=== PATIENT | female | born 1935 | race Caucasian/White ===

== ENCOUNTER 2017-06-02 21:42 | Inpatient (IN) | payer MEDICAID, MEDICARE ==
--- NOTE | 2017-06-02 22:05 | ED Physician Chart ---
ED Chief Complaint/HPI - Patient Information Date Seen:: 06/02/17 Time Seen:: 21:55 Chief Complaint:: agitation History of Present Illness:: onset x 2 days of agitation and aggressive behavior; no report of trauma, SIs, H /As, S/T, neck pain, C/P, SOB, Abd. Pain, A/N/V/D/C, fever, chills, or urinary s /s Allergies:: Allergies Allergy/AdvReac Type Severity Reaction Status Date / Time No Known Allergies Allergy Verified 06/02/17 21:56 Historian:: Patient, EMS Review:: Nurse's Note Reviewed, Old Chart Reviewed, EMS run form Reviewed ED Review of Systems - Review of Systems General/Constitutional: No fever, No chills, No weight loss, No weakness, No diaphoresis, No edema, No loss of appetite Skin: No skin lesions, No rash, No bruising Head: No headache, No light-headedness Eyes: No loss of vision, No pain, No diplopia ENT: No earache, No nasal drainage, No sore throat, No tinnitus Neck: No neck pain, No swelling, No thyromegaly, No stiffness, No mass noted Cardio Vascular: No chest pain, No palpitations, No PND, No orthopnea, No edema Pulmonary: No SOB, No cough, No sputum, No wheezing GI: No nausea, No vomiting, No diarrhea, No pain, No melena, No hematochezia, No constipation, No hematemesis G/U: No dysuria, No frequency, No hematuria, No nacturia [employer]: No vaginal discharge, No abnormal vaginal bleed, No contraction Musculoskeletal: No bone or joint pain, No back pain, No muscle pain Endocrine: No polyuria, No polydipsia Psychiatric: Prior psych history, No depression, Anxiety, No suicidal ideation, No homicidal ideation, No auditory hallucination, No visual hallucination Hematopoietic: No bruising, No lymphadenopathy Allergic/Immuno: No urticaria, No angioedema Neurological: No syncope, No focal symptoms, No weakness, No paresthesia, No headache, No seizure, No dizziness, No confusion, No vertigo ED Past Medical History - Past Medical History Obtainable: Yes Past Medical History: HTN, Dyslipidemia, Dementia Family History: HTN Social History: Non Smoker, No Alcohol, No Drug Use, Single, Care Facility Surgical History: None Psychiatricy History: Bipolar, Dementia Medication: Reviewed Family Medical History - Family Member Mother History Unknown: Yes ED Physical Exam - Physical Examination General/Constitutional: Awake, Well-developed, well-nourished, Alert, No distress, GCS 15, Non-toxic appearing, Ambulatory Head: Atraumatic Eyes: Lids, conjuctiva normal, PERRL, EOMI Skin: Nl inspection, No rash, No skin lesions, No ecchymosis, Well hydrated, No lymphadenopathy ENMT: External ears, nose nl, TM canals nl, Nasal exam nl, Lips, teeth, gums nl , Oropharynx nl, Tonsils nl Neck: Nontender, Full ROM w/o pain, No JVD, No nuchal rigidity, No bruit, No mass, No stridor Respiratory: Nl effort/Exclusion, Clear to Auscultation, No Wheeze/Rhonchi/Rales Cardio Vascular: RRR, No murmur, gallop, rubs, NL S1 S2, Carotid/Femoral/Distal pulses equal bilaterally GI: No tenderness/rebounding/guarding, No organomegaly, No hernia, Normal BS's, Nondistended, No mass/bruits, No McBurney tenderness : No CVA tenderness Extremities: No tenderness or effusion, Full ROM, normal strength in all extremities, No edema, Normal digits & nails Neuro/Psych: Alert/oriented, DTR's symmetric, Normal sensory exam, Normal motor strength, Judgement/insight normal, Mood normal, Normal gait, No focal deficits Other Neuro/Psych comments:: + Psychomotor Agitation; Mood/Affect: Labile; no SIs Misc: Normal back, No paraspinal tenderness ED Labs/Radiology/EKG Results - Lab Results Comments:: unremarkable - EKG Interpretations EKG Time:: 22:05 Rate & Rhythm: 77; NSR Comments:: LVH; non-specific st-t changes ED Septic Shock - . Is Septic Shock (SBP<90, OR Lactate>4 mmol\L) present?: No ED Reassessment (Disposition) - Reassessment Reassessment Condition:: Improved - Diagnosis Diagnosis:: Medical Clearance; Agitation; Bipolar Disorder; Psychosis - Aftercare/Follow up Instructions Aftercare/Follow-Up Instructions:: Counseled pt regarding lab results/diagnosis & need follow up, Counseled pt & family regarding lab results/diagnosis & need follow up - Patient Disposition Discharge/Transfer:: Acute Care w/in this hosp Admitted to:: [facility] Condition at Disposition:: Stable, Improved
[2017-06-02 23:11] LABS: % BASOPHILS 0.2 % (0.0-2.0); % LYMPHOCYTES 22.8 % (20.0-50.0); EOSINOPHILE ABSOLUTE 0.1 Th/cmm (0.1-0.4); HEMATOCRIT 43.7 % (41.0-60); HEMOGLOBIN 14.5 gm/dL (12-16); LYMPHOCYTE ABSOLUTE 1.3 Th/cmm (1.5-3.0); MEAN CELL VOLUME 92.3 fl (81-100); MEAN CORPUSCULAR HEMOGLOBIN 30.5 pg (27.0-31.0); MEAN CORPUSCULAR HGB CONC 33.1 pg (28.0-36.0); MONOCYTE ABSOLUTE 0.5 Th/cmm (0.3-1.0); PLATELET COUNT 208 Th/cmm (150-400); RED BLOOD COUNT 4.74 Mil/cmm (3.80-5.20); RED CELL DISTRIBUTION WIDTH 13.5 % (11.5-20.0); WHITE BLOOD COUNT 5.9 Th/cmm (4.8-10.8)
[2017-06-02 23:39] LABS: ACETAMINOPHEN < 10.0 ug/mL (10.0-30.0); ALB/GLOB RATIO 1.3 (1.0-1.8); ALBUMIN 3.7 gm/dL (3.7-5.3); ALKALINE PHOSPHATASE 76 U/L (34-104); ANION GAP 11.8 (7.0-16.0); BILIRUBIN,TOTAL 0.5 mg/dL (0.3-1.0); BUN - UREA NITROGEN 27 mg/dL (7-25); CALCIUM SERUM 9.5 mg/dL (8.6-10.3); CARBON DIOXIDE 26.1 mEq/L (21.0-31.0); CHLORIDE 111 mEq/L (98-107); CHOLESTEROL 196 mg/dL (<200); CREATININE - SERUM 0.6 mg/dL (0.6-1.2); GLUCOSE 79 mg/dL (70-105); HDL -HIGH DENSITY LIPOPROTEIN 83 mg/dL (23-92); POTASSIUM SERUM 3.9 mEq/L (3.5-5.1); SALICYLATES (ASPIRIN) < 25.0 mg/L (30.0-100.0); SGOT 17 U/L (13-39); SGPT/ALT 15 U/L (7-52); SODIUM SERUM 145 mEq/L (136-145); TOTAL PROTEIN,SERUM 6.6 gm/dL (6.0-8.3); TRIGLYCERIDES 53 mg/dL (<150)
[2017-06-03 01:49] VITALS: BP 138/65
[2017-06-03] MEDS ORDERED: Magnesium Hydroxide (MOM) 30 mL UDC PO PRN (13:35)
[2017-06-03] MEDS ORDERED: Non-Formulary Item 1 EA (Albuterol Sulfate [Ventolin Hfa] 2 PUFF) IH SCH (13:45)
--- NOTE | 2017-06-03 16:38 | Internal Medicine Prog Note ---
Internal Medicine Subjective - Subjective Service Date: 06/03/17 ([id number] hn ) Internal Medicine Objective - Results Result Diagrams: 06/02/17 22:50 06/02/17 22:50 Recent Labs: Laboratory Last Values WBC 5.9 Th/cmm (4.8-10.8) 06/02/17 22:50 RBC 4.74 Mil/cmm (3.80-5.20) 06/02/17 22:50 Hgb 14.5 gm/dL (12-16) 06/02/17 22:50 Hct 43.7 % (41.0-60) 06/02/17 22:50 MCV 92.3 fl (81-100) 06/02/17 22:50 MCH 30.5 pg (27.0-31.0) 06/02/17 22:50 MCHC Differential 33.1 pg (28.0-36.0) 06/02/17 22:50 RDW 13.5 % (11.5-20.0) 06/02/17 22:50 Plt Count 208 Th/cmm (150-400) 06/02/17 22:50 MPV 8.0 fl 06/02/17 22:50 Neutrophils % 67.0 % (40.0-80.0) 06/02/17 22:50 Lymphocytes % 22.8 % (20.0-50.0) 06/02/17 22:50 Monocytes % 8.0 % (2.0-10.0) 06/02/17 22:50 Eosinophils % 2.0 % (0.0-5.0) 06/02/17 22:50 Basophils % 0.2 % (0.0-2.0) 06/02/17 22:50 Sodium 145 mEq/L (136-145) 06/02/17 22:50 Potassium 3.9 mEq/L (3.5-5.1) 06/02/17 22:50 Chloride 111 mEq/L (98-107) H 06/02/17 22:50 Carbon Dioxide 26.1 mEq/L (21.0-31.0) 06/02/17 22:50 Anion Gap 11.8 (7.0-16.0) 06/02/17 22:50 BUN 27 mg/dL (7-25) H 06/02/17 22:50 Creatinine 0.6 mg/dL (0.6-1.2) 06/02/17 22:50 Est GFR ( Amer) TNP 06/02/17 22:50 Est GFR (Non-Af Amer) TNP 06/02/17 22:50 BUN/Creatinine Ratio 45.0 06/02/17 22:50 Glucose 79 mg/dL (70-105) 06/02/17 22:50 Calcium 9.5 mg/dL (8.6-10.3) 06/02/17 22:50 Total Bilirubin 0.5 mg/dL (0.3-1.0) 06/02/17 22:50 AST 17 U/L (13-39) 06/02/17 22:50 ALT 15 U/L (7-52) 06/02/17 22:50 Alkaline Phosphatase 76 U/L (34-104) 06/02/17 22:50 Total Protein 6.6 gm/dL (6.0-8.3) 06/02/17 22:50 Albumin 3.7 gm/dL (3.7-5.3) 06/02/17 22:50 Globulin 2.9 gm/dL 06/02/17 22:50 Albumin/Globulin Ratio 1.3 (1.0-1.8) 06/02/17 22:50 Triglycerides 53 mg/dL (<150) 06/02/17 22:50 Cholesterol 196 mg/dL (<200) 06/02/17 22:50 LDL Cholesterol Direct 93 mg/dL (75-193) 06/02/17 22:50 HDL Cholesterol 83 mg/dL (23-92) 06/02/17 22:50 TSH 2.92 uIU/ml (0.34-5.60) 06/02/17 22:50 Salicylates < 25.0 mg/L (30.0-100.0) L 06/02/17 22:50 Acetaminophen < 10.0 ug/mL (10.0-30.0) L 06/02/17 22:50 Ethyl Alcohol < 10 mg/dL (0-10) 06/02/17 22:50 - Physical Exam Vitals and I&O: Vital Signs Temp 96.8 F 06/03/17 16:14 Pulse 68 06/03/17 16:14 Resp 18 06/03/17 16:14 BP 128/64 06/03/17 16:14 Pulse Ox 96 06/03/17 16:14 Intake & Output 06/02/17 06/03/17 06/03/17 18:59 06:59 18:59 Other: # Voids 2 Stool Characteristics Soft Active Medications: Current Medications Acetaminophen (Tylenol) 650 mg PO Q6H PRN PRN Reason: Pain (Mild) Stop: 08/02/17 13:34 Amlodipine Besylate (Norvasc) 5 mg PO DAILY [facility] Stop: 08/03/17 08:59 Aspirin (Aspirin Chewable) 81 mg PO DAILY [facility] Stop: 08/03/17 08:59 Bisacodyl (Dulcolax 10 Mg Supp) 10 mg RC DAILY PRN PRN Reason: Constipation Stop: 08/02/17 13:34 Famotidine (Pepcid) 20 mg PO QAM [facility] Stop: 08/03/17 08:59 Lorazepam (Ativan) 0.5 mg PO Q4HR PRN; Protocol PRN Reason: Anxiety Stop: 07/03/17 00:57 Magnesium Hydroxide (Milk Of Magnesia) 30 ml PO HS PRN PRN Reason: Constipation Stop: 08/02/17 13:34
--- NOTE | 2017-06-03 19:09 | History & Physical ---
ADMIT DATE: 06/03/2017 CHIEF COMPLAINT: Agitation. HISTORY OF PRESENT ILLNESS: This is an 82-year-old male who is a custodial resident who is admitted now to the Geropsych Unit due to a 2-day history of agitation and aggressive behavior towards nursing staff. PAST MEDICAL HISTORY: Hypertension, dyslipidemia, dementia. FAMILY HISTORY: Noncontributory. SOCIAL HISTORY: The patient is a custodial resident requiring 24-hour nursing care. SURGICAL HISTORY: Unknown. MEDICATIONS: Please see medication list. REVIEW OF SYSTEMS: GENERAL: Denies any fevers and chills. CARDIOVASCULAR: Denies chest pain. RESPIRATORY: Denies shortness of breath. GASTROINTESTINAL: Denies nausea, vomiting or abdominal pain. GENITOURINARY: Denies increased frequency or dysuria. NEUROLOGIC: No headaches, seizures or syncope. All other systems are reviewed and are negative. PHYSICAL EXAMINATION: GENERAL: The patient is well developed, well nourished, in no acute distress. VITAL SIGNS: Temperature 96.8, heart rate 68, blood pressure 128/64, respirations 18. HEENT: Head normocephalic, atraumatic. NECK: Supple. No mass. LUNGS: Clear bilaterally. HEART: . ABDOMEN: Soft and nontender. LABORATORY DATA: WBC 5.9, H and H 14.5 and 42.7, platelets of 208. Sodium 145, potassium 3.9, chloride 111, BUN 27, creatinine 0.6. ASSESSMENT: Agitation, hypertension, dyslipidemia, dementia. PLAN: We will monitor the patient's blood pressure. We will change patient's blood pressure medications. We will adjust the patient's medication accordingly. We will continue to follow this patient. JOB# [id number]
[2017-06-03 19:59] LABS: A1C % 5.9 % (4.0-6.0)
--- NOTE | 2017-06-04 03:49 | Psychosocial Evaluation ---
DATE OF SERVICE: 06/03/2017 IDENTIFYING DATA: The patient is an 82-year-old woman, resident of [facility]. Information obtained by directly interviewing the patient as well as reviewing the admission papers. JUSTIFICATION OF HOSPITALIZATION: The patient is admitted here on a voluntary basis in view of her disruptive behavior and being paranoid. HISTORY OF PRESENT ILLNESS: Chart is reviewed. The patient is interviewed. During the interview, the patient is noted to be grossly psychotic and has been trying to grab the staff member and the patient is not making any sense at this time. The patient is laughing to self and giggling at times. The patient's personal hygiene is noted to be extremely poor. The patient is noted to be disheveled. Sleep and appetite prior to the hospitalization are reported to be poor. PAST PSYCHIATRIC HISTORY: Details are not known. MEDICAL HISTORY: Physical examination is requested and done by Dr. Thomas. SUBSTANCE ABUSE HISTORY: The patient has no history of any substance abuse problems. SOCIAL HISTORY: The patient is a resident of the alf facility. MENTAL STATUS EXAMINATION: The patient is an 82-year-old woman looking her stated age, superficially cooperative. Eye contact is poor. Mood is noted to be irritable. Affect is constricted. The patient is talking to self and is not making much sense. The patient is noted to be giggling. Coping skills are noted to be very poor. Insight and judgment also noted to be very much impaired. No side effects to the medications are noted. The patient has been having difficult time to answer the questions and tries to grab my hand. DIAGNOSTIC IMPRESSION: AXIS I: Psychotic disorder, not otherwise specified. AXIS II: None. AXIS III: As per Dr. Thomas. ESTIMATED LENGTH OF STAY: 5-7 days. DISCHARGE CRITERIA: When she is no longer a threat to self or others and be able to cope up with the stress. JOB# [id number]
[2017-06-04] MEDS: Aspirin 81mg Chewable Tab PO SCH (08:59)
--- NOTE | 2017-06-04 13:56 | Internal Medicine Prog Note ---
Internal Medicine Subjective - Subjective Service Date: 06/04/17 Patient seen and examined:: with staff Patient is:: awake, verbal Per staff patient has:: tolerating meds Internal Medicine Objective - Results Result Diagrams: 06/02/17 22:50 06/02/17 22:50 Recent Labs: Laboratory Last Values WBC 5.9 Th/cmm (4.8-10.8) 06/02/17 22:50 RBC 4.74 Mil/cmm (3.80-5.20) 06/02/17 22:50 Hgb 14.5 gm/dL (12-16) 06/02/17 22:50 Hct 43.7 % (41.0-60) 06/02/17 22:50 MCV 92.3 fl (81-100) 06/02/17 22:50 MCH 30.5 pg (27.0-31.0) 06/02/17 22:50 MCHC Differential 33.1 pg (28.0-36.0) 06/02/17 22:50 RDW 13.5 % (11.5-20.0) 06/02/17 22:50 Plt Count 208 Th/cmm (150-400) 06/02/17 22:50 MPV 8.0 fl 06/02/17 22:50 Neutrophils % 67.0 % (40.0-80.0) 06/02/17 22:50 Lymphocytes % 22.8 % (20.0-50.0) 06/02/17 22:50 Monocytes % 8.0 % (2.0-10.0) 06/02/17 22:50 Eosinophils % 2.0 % (0.0-5.0) 06/02/17 22:50 Basophils % 0.2 % (0.0-2.0) 06/02/17 22:50 Sodium 145 mEq/L (136-145) 06/02/17 22:50 Potassium 3.9 mEq/L (3.5-5.1) 06/02/17 22:50 Chloride 111 mEq/L (98-107) H 06/02/17 22:50 Carbon Dioxide 26.1 mEq/L (21.0-31.0) 06/02/17 22:50 Anion Gap 11.8 (7.0-16.0) 06/02/17 22:50 BUN 27 mg/dL (7-25) H 06/02/17 22:50 Creatinine 0.6 mg/dL (0.6-1.2) 06/02/17 22:50 Est GFR ( Amer) TNP 06/02/17 22:50 Est GFR (Non-Af Amer) TNP 06/02/17 22:50 BUN/Creatinine Ratio 45.0 06/02/17 22:50 Glucose 79 mg/dL (70-105) 06/02/17 22:50 Hemoglobin A1c % 5.9 % (4.0-6.0) 06/02/17 22:50 Calcium 9.5 mg/dL (8.6-10.3) 06/02/17 22:50 Total Bilirubin 0.5 mg/dL (0.3-1.0) 06/02/17 22:50 AST 17 U/L (13-39) 06/02/17 22:50 ALT 15 U/L (7-52) 06/02/17 22:50 Alkaline Phosphatase 76 U/L (34-104) 06/02/17 22:50 Total Protein 6.6 gm/dL (6.0-8.3) 06/02/17 22:50 Albumin 3.7 gm/dL (3.7-5.3) 06/02/17 22:50 Globulin 2.9 gm/dL 06/02/17 22:50 Albumin/Globulin Ratio 1.3 (1.0-1.8) 06/02/17 22:50 Triglycerides 53 mg/dL (<150) 06/02/17 22:50 Cholesterol 196 mg/dL (<200) 06/02/17 22:50 LDL Cholesterol Direct 93 mg/dL (75-193) 06/02/17 22:50 HDL Cholesterol 83 mg/dL (23-92) 06/02/17 22:50 TSH 2.92 uIU/ml (0.34-5.60) 06/02/17 22:50 Salicylates < 25.0 mg/L (30.0-100.0) L 06/02/17 22:50 Acetaminophen < 10.0 ug/mL (10.0-30.0) L 06/02/17 22:50 Ethyl Alcohol < 10 mg/dL (0-10) 06/02/17 22:50 RPR NONREACTIVE (NONREACTIVE) 06/02/17 22:50 - Physical Exam Vitals and I&O: Vital Signs Temp 98.4 F 06/04/17 06:52 Pulse 65 06/04/17 08:57 Resp 18 06/04/17 06:52 BP 116/69 06/04/17 08:57 Pulse Ox 95 06/04/17 06:52 Intake & Output 06/03/17 06/04/17 06/04/17 18:59 06:59 18:59 Intake Total 600 240 Balance 600 240 Intake: Oral 600 240 Other: # Voids 2 2 Stool Characteristics Soft Active Medications: Current Medications Acetaminophen (Tylenol) 650 mg PO Q6H PRN PRN Reason: Pain (Mild) Stop: 08/02/17 13:34 Amlodipine Besylate (Norvasc) 5 mg PO DAILY [facility] Stop: 08/03/17 08:59 Last Admin: 06/04/17 08:57 Dose: 5 mg Aspirin (Aspirin Chewable) 81 mg PO DAILY [facility] Stop: 08/03/17 08:59 Last Admin: 06/04/17 08:59 Dose: 81 mg Bisacodyl (Dulcolax 10 Mg Supp) 10 mg RC DAILY PRN PRN Reason: Constipation Stop: 08/02/17 13:34 Famotidine (Pepcid) 20 mg PO QAM [facility] Stop: 08/03/17 08:59 Last Admin: 06/04/17 08:57 Dose: 20 mg Lorazepam (Ativan) 0.5 mg PO Q4HR PRN; Protocol PRN Reason: Anxiety Stop: 07/03/17 00:57 Magnesium Hydroxide (Milk Of Magnesia) 30 ml PO HS PRN PRN Reason: Constipation Stop: 08/02/17 13:34 Quetiapine Fumarate (Seroquel) 12.5 mg PO HS [facility] PRN Reason: Protocol Stop: 08/02/17 20:59 General: alert HEENT: NC/AT, PERRLA Neck: Supple Lungs: CTAB Cardiovascular: RRR, Normal S1, Normal S2 Abdomen: soft, non-tender, non-distended, positive bowel sound Neurological: alert Internal Medicine Assmt/Plan - Assessment Assessment: agitation htn dyslipidemia dementia - Plan Plan: fall precautions monitor BP continue current plan of care
--- NOTE | 2017-06-05 02:38 | Progress Notes ---
DATE: 06/04/2017 PSYCHIATRIC PROGRESS NOTE SUBJECTIVE: Staff was spoken to. The patient is interviewed. Mood is noted to be irritable. Affect is constricted. She continues to be isolative and withdrawn. Paranoid delusions are noted. Insight and judgment are noted to be impaired. Coping skills are noted to be very poor. The patient is not making much sense and the patient has been lying down with her toy next to her. ASSESSMENT: The patient is still psychotic and impulsive. PLAN: To continue the patient with the supportive therapy. Encouraged the patient to verbalize the concerns rather than to act out. JOB# [id number]
[2017-06-05] MEDS: Aspirin 81mg Chewable Tab PO SCH (09:04)
--- NOTE | 2017-06-05 14:50 | Internal Medicine Prog Note ---
Internal Medicine Subjective - Subjective Patient seen and examined:: with staff, chart reviewed Patient is:: awake, verbal Per staff patient has:: no adverse event, no episodes of fall, tolerating meds Internal Medicine Objective - Results Result Diagrams: 06/02/17 22:50 06/02/17 22:50 Recent Labs: Laboratory Last Values WBC 5.9 Th/cmm (4.8-10.8) 06/02/17 22:50 RBC 4.74 Mil/cmm (3.80-5.20) 06/02/17 22:50 Hgb 14.5 gm/dL (12-16) 06/02/17 22:50 Hct 43.7 % (41.0-60) 06/02/17 22:50 MCV 92.3 fl (81-100) 06/02/17 22:50 MCH 30.5 pg (27.0-31.0) 06/02/17 22:50 MCHC Differential 33.1 pg (28.0-36.0) 06/02/17 22:50 RDW 13.5 % (11.5-20.0) 06/02/17 22:50 Plt Count 208 Th/cmm (150-400) 06/02/17 22:50 MPV 8.0 fl 06/02/17 22:50 Neutrophils % 67.0 % (40.0-80.0) 06/02/17 22:50 Lymphocytes % 22.8 % (20.0-50.0) 06/02/17 22:50 Monocytes % 8.0 % (2.0-10.0) 06/02/17 22:50 Eosinophils % 2.0 % (0.0-5.0) 06/02/17 22:50 Basophils % 0.2 % (0.0-2.0) 06/02/17 22:50 Sodium 145 mEq/L (136-145) 06/02/17 22:50 Potassium 3.9 mEq/L (3.5-5.1) 06/02/17 22:50 Chloride 111 mEq/L (98-107) H 06/02/17 22:50 Carbon Dioxide 26.1 mEq/L (21.0-31.0) 06/02/17 22:50 Anion Gap 11.8 (7.0-16.0) 06/02/17 22:50 BUN 27 mg/dL (7-25) H 06/02/17 22:50 Creatinine 0.6 mg/dL (0.6-1.2) 06/02/17 22:50 Est GFR ( Amer) TNP 06/02/17 22:50 Est GFR (Non-Af Amer) TNP 06/02/17 22:50 BUN/Creatinine Ratio 45.0 06/02/17 22:50 Glucose 79 mg/dL (70-105) 06/02/17 22:50 Hemoglobin A1c % 5.9 % (4.0-6.0) 06/02/17 22:50 Calcium 9.5 mg/dL (8.6-10.3) 06/02/17 22:50 Total Bilirubin 0.5 mg/dL (0.3-1.0) 06/02/17 22:50 AST 17 U/L (13-39) 06/02/17 22:50 ALT 15 U/L (7-52) 06/02/17 22:50 Alkaline Phosphatase 76 U/L (34-104) 06/02/17 22:50 Total Protein 6.6 gm/dL (6.0-8.3) 06/02/17 22:50 Albumin 3.7 gm/dL (3.7-5.3) 06/02/17 22:50 Globulin 2.9 gm/dL 06/02/17 22:50 Albumin/Globulin Ratio 1.3 (1.0-1.8) 06/02/17 22:50 Triglycerides 53 mg/dL (<150) 06/02/17 22:50 Cholesterol 196 mg/dL (<200) 06/02/17 22:50 LDL Cholesterol Direct 93 mg/dL (75-193) 06/02/17 22:50 HDL Cholesterol 83 mg/dL (23-92) 06/02/17 22:50 TSH 2.92 uIU/ml (0.34-5.60) 06/02/17 22:50 Salicylates < 25.0 mg/L (30.0-100.0) L 06/02/17 22:50 Acetaminophen < 10.0 ug/mL (10.0-30.0) L 06/02/17 22:50 Ethyl Alcohol < 10 mg/dL (0-10) 06/02/17 22:50 RPR NONREACTIVE (NONREACTIVE) 06/02/17 22:50 - Physical Exam Vitals and I&O: Vital Signs Temp 97.8 F 06/05/17 06:32 Pulse 61 06/05/17 09:04 Resp 20 06/05/17 08:00 BP 135/57 06/05/17 09:04 Pulse Ox 96 06/05/17 06:32 Intake & Output 06/04/17 06/05/17 06/05/17 18:59 06:59 18:59 Intake Total 500 Balance 500 Intake: Oral 500 Other: # Voids 2 Active Medications: Current Medications Acetaminophen (Tylenol) 650 mg PO Q6H PRN PRN Reason: Pain (Mild) Stop: 08/02/17 13:34 Amlodipine Besylate (Norvasc) 5 mg PO DAILY [facility] Stop: 08/03/17 08:59 Last Admin: 06/05/17 09:04 Dose: 5 mg Aspirin (Aspirin Chewable) 81 mg PO DAILY [facility] Stop: 08/03/17 08:59 Last Admin: 06/05/17 09:04 Dose: 81 mg Bisacodyl (Dulcolax 10 Mg Supp) 10 mg RC DAILY PRN PRN Reason: Constipation Stop: 08/02/17 13:34 Famotidine (Pepcid) 20 mg PO QAM [facility] Stop: 08/03/17 08:59 Last Admin: 06/05/17 09:04 Dose: 20 mg Lorazepam (Ativan) 0.5 mg PO Q4HR PRN; Protocol PRN Reason: Anxiety Stop: 07/03/17 00:57 Magnesium Hydroxide (Milk Of Magnesia) 30 ml PO HS PRN PRN Reason: Constipation Stop: 08/02/17 13:34 Quetiapine Fumarate (Seroquel) 12.5 mg PO HS [facility] PRN Reason: Protocol Stop: 08/02/17 20:59 General: alert HEENT: NC/AT, PERRLA Neck: Supple Lungs: CTAB Cardiovascular: RRR, Normal S1, Normal S2 Abdomen: soft, non-tender, non-distended, positive bowel sound Neurological: alert Internal Medicine Assmt/Plan - Assessment Assessment: - Assessment Assessment: agitation htn dyslipidemia dementia - Plan Plan: fall precautions monitor BP continue current plan of care - Plan Plan: see orders
--- NOTE | 2017-06-05 15:49 | Progress Notes ---
DATE: 06/05/2017 SUBJECTIVE: Staff was spoken to. The patient is interviewed. Mood is irritable. Affect is constricted. Coping skills are noted to very poor. The patient has paranoid delusions. No side effects to the medications are noted. The patient is not making any sense. ASSESSMENT: The patient is still grossly psychotic. PLAN: To continue the patient with the supportive therapy, encouraged the patient to verbalize the concerns rather than to act out. [facility]# [id number]
[2017-06-06] MEDS: Aspirin 81mg Chewable Tab PO SCH (08:35)
--- NOTE | 2017-06-06 16:40 | Progress Notes ---
DATE: 06/06/2017 SUBJECTIVE: Staff was spoken to. The patient is interviewed. Mood is noted to be anxious. Coping skills are noted to be poor. The patient continues to be isolative and withdrawn. Paranoid delusions are noted, but the patient denies any command hallucinations. The patient has been having difficult time to verbalize the concerns. ASSESSMENT: The patient is still agitated. PLAN: To continue the patient with a low dose of the antipsychotic medication. JOB# [id number]
--- NOTE | 2017-06-06 17:51 | Consultation ---
DATE OF CONSULTATION: 06/04/2017 REQUESTING PHYSICIAN: Oleg Parker M.D. TYPE OF CONSULTATION: Psychology. HISTORY OF PRESENT ILLNESS: The patient is an 82-year-old female who is a resident of [facility]. The following is by review of medical record and by the patient's self report. The patient has been interviewed. The patient is not making much sense during the interview. The staff reports that the patient has been trying to grab staff members at her facility. The patient has been inappropriately laughing at times. She presents as disheveled and with poor hygiene. The patient is being admitted due to disruptive behavior according to the staff at the patient's facility. PAST MEDICAL HISTORY: Please see history and physical by Dr. Thomas. PAST PSYCHIATRIC HISTORY: Unavailable at the time of the clinical interview. SUBSTANCE ABUSE HISTORY: The patient did not answer questions about substance abuse history. MEDICATIONS: Please see admission medication reconciliation. ALLERGIES: No known drug allergies. PSYCHOSOCIAL HISTORY: The patient is a resident of [facility]. The patient did not answer questions about occupational history, educational history, or confucianism affiliation. The patient did not answer questions about history of physical or sexual abuse or legal status. The patient said no when asked if there are family members who are part of her support system. MENTAL STATUS EXAMINATION: The patient appears to be her stated age. The patient's attitude is superficially cooperative. Eye contact is poor. Speech is slow and delayed and rambling at times. Mood is irritable. Affect is constricted. Thought process shows to be confused. The patient is not making much sense. Concentration is poor. The patient was unable to sustain focus on attention. Impulse control is poor. The patient denied any suicidal ideation, plan, or intention. The patient denied any auditory or visual hallucinations or delusions. However, there may be some paranoid ideation present. The patient did not participate in the memory evaluation. Immediate and short term memory appeared to be impaired. Sensorium is alert and oriented to place and person. The patient did not participate in the interpretation of proverbs. Insight is impaired. Judgment is compromised. DIAGNOSTIC IMPRESSION: AXIS I: Psychotic disorder, not otherwise specified. AXIS II: Deferred. AXIS III: Please see history and physical by Dr. Thomas. TREATMENT PLAN: The patient has been seen by Dr. Parker for psychiatric evaluation and for the management of the patient's psychotropic medications. We will provide reality orientation, reality differentiation, and reality integration. We will provide coping strategies for phase of life issues. We will continue to provide supportive therapy and encourage the patient to stay compliant with all aspects of her care and treatment during the course of her hospital stay. We will provide motivational enhancement for the patient to verbalize concerns versus acting out. Thank you, Dr. Parker for this consult and the opportunity to participate in this patient's care. JOB# [id number] CAL[facility]
--- NOTE | 2017-06-06 21:30 | Internal Medicine Prog Note ---
Internal Medicine Subjective - Subjective Patient seen and examined:: with staff, chart reviewed Patient is:: awake, verbal Per staff patient has:: no adverse event, no episodes of fall, tolerating meds Internal Medicine Objective - Results Result Diagrams: 06/02/17 22:50 06/02/17 22:50 Recent Labs: Laboratory Last Values WBC 5.9 Th/cmm (4.8-10.8) 06/02/17 22:50 RBC 4.74 Mil/cmm (3.80-5.20) 06/02/17 22:50 Hgb 14.5 gm/dL (12-16) 06/02/17 22:50 Hct 43.7 % (41.0-60) 06/02/17 22:50 MCV 92.3 fl (81-100) 06/02/17 22:50 MCH 30.5 pg (27.0-31.0) 06/02/17 22:50 MCHC Differential 33.1 pg (28.0-36.0) 06/02/17 22:50 RDW 13.5 % (11.5-20.0) 06/02/17 22:50 Plt Count 208 Th/cmm (150-400) 06/02/17 22:50 MPV 8.0 fl 06/02/17 22:50 Neutrophils % 67.0 % (40.0-80.0) 06/02/17 22:50 Lymphocytes % 22.8 % (20.0-50.0) 06/02/17 22:50 Monocytes % 8.0 % (2.0-10.0) 06/02/17 22:50 Eosinophils % 2.0 % (0.0-5.0) 06/02/17 22:50 Basophils % 0.2 % (0.0-2.0) 06/02/17 22:50 Sodium 145 mEq/L (136-145) 06/02/17 22:50 Potassium 3.9 mEq/L (3.5-5.1) 06/02/17 22:50 Chloride 111 mEq/L (98-107) H 06/02/17 22:50 Carbon Dioxide 26.1 mEq/L (21.0-31.0) 06/02/17 22:50 Anion Gap 11.8 (7.0-16.0) 06/02/17 22:50 BUN 27 mg/dL (7-25) H 06/02/17 22:50 Creatinine 0.6 mg/dL (0.6-1.2) 06/02/17 22:50 Est GFR ( Amer) TNP 06/02/17 22:50 Est GFR (Non-Af Amer) TNP 06/02/17 22:50 BUN/Creatinine Ratio 45.0 06/02/17 22:50 Glucose 79 mg/dL (70-105) 06/02/17 22:50 Hemoglobin A1c % 5.9 % (4.0-6.0) 06/02/17 22:50 Calcium 9.5 mg/dL (8.6-10.3) 06/02/17 22:50 Total Bilirubin 0.5 mg/dL (0.3-1.0) 06/02/17 22:50 AST 17 U/L (13-39) 06/02/17 22:50 ALT 15 U/L (7-52) 06/02/17 22:50 Alkaline Phosphatase 76 U/L (34-104) 06/02/17 22:50 Total Protein 6.6 gm/dL (6.0-8.3) 06/02/17 22:50 Albumin 3.7 gm/dL (3.7-5.3) 06/02/17 22:50 Globulin 2.9 gm/dL 06/02/17 22:50 Albumin/Globulin Ratio 1.3 (1.0-1.8) 06/02/17 22:50 Triglycerides 53 mg/dL (<150) 06/02/17 22:50 Cholesterol 196 mg/dL (<200) 06/02/17 22:50 LDL Cholesterol Direct 93 mg/dL (75-193) 06/02/17 22:50 HDL Cholesterol 83 mg/dL (23-92) 06/02/17 22:50 TSH 2.92 uIU/ml (0.34-5.60) 06/02/17 22:50 Salicylates < 25.0 mg/L (30.0-100.0) L 06/02/17 22:50 Acetaminophen < 10.0 ug/mL (10.0-30.0) L 06/02/17 22:50 Ethyl Alcohol < 10 mg/dL (0-10) 06/02/17 22:50 RPR NONREACTIVE (NONREACTIVE) 06/02/17 22:50 - Physical Exam Vitals and I&O: Vital Signs Temp 97.8 F 06/06/17 21:17 Pulse 72 06/06/17 21:17 Resp 20 06/06/17 21:17 BP 121/76 06/06/17 21:17 Pulse Ox 97 06/06/17 21:17 Intake & Output 06/06/17 06/06/17 06/07/17 06:59 18:59 06:59 Intake Total 240 800 240 Balance 240 800 240 Intake: Oral 240 800 240 Other: # Voids 1 4 1 # Bowel Movements 1 Active Medications: Current Medications Acetaminophen (Tylenol) 650 mg PO Q6H PRN PRN Reason: Pain (Mild) Stop: 08/02/17 13:34 Amlodipine Besylate (Norvasc) 5 mg PO DAILY [facility] Stop: 08/03/17 08:59 Last Admin: 06/06/17 08:35 Dose: 5 mg Aspirin (Aspirin Chewable) 81 mg PO DAILY [facility] Stop: 08/03/17 08:59 Last Admin: 06/06/17 08:35 Dose: 81 mg Bisacodyl (Dulcolax 10 Mg Supp) 10 mg RC DAILY PRN PRN Reason: Constipation Stop: 08/02/17 13:34 Famotidine (Pepcid) 20 mg PO QAM SIMON Stop: 08/03/17 08:59 Last Admin: 06/06/17 08:35 Dose: 20 mg Lorazepam (Ativan) 0.5 mg PO Q4HR PRN; Protocol PRN Reason: Anxiety Stop: 07/03/17 00:57 Magnesium Hydroxide (Milk Of Magnesia) 30 ml PO HS PRN PRN Reason: Constipation Stop: 08/02/17 13:34 Quetiapine Fumarate (Seroquel) 12.5 mg PO HS SIMON PRN Reason: Protocol Stop: 08/02/17 20:59 Last Admin: 06/06/17 21:14 Dose: 12.5 mg General: alert HEENT: NC/AT, PERRLA Neck: Supple Lungs: CTAB Cardiovascular: RRR, Normal S1, Normal S2 Abdomen: soft, non-tender, non-distended, positive bowel sound Neurological: alert Internal Medicine Assmt/Plan - Assessment Assessment: - Assessment Assessment: agitation htn dyslipidemia dementia - Plan Plan: fall precautions monitor BP continue current plan of care - Plan Plan: see orders
[2017-06-07] MEDS: Aspirin 81mg Chewable Tab PO SCH (09:38)
--- NOTE | 2017-06-07 13:21 | Internal Medicine Prog Note ---
Internal Medicine Subjective - Subjective Service Date: 06/07/17 Patient is:: awake, verbal Per staff patient has:: no adverse event, no episodes of fall, tolerating meds Internal Medicine Objective - Results Result Diagrams: 06/02/17 22:50 06/02/17 22:50 Recent Labs: Laboratory Last Values WBC 5.9 Th/cmm (4.8-10.8) 06/02/17 22:50 RBC 4.74 Mil/cmm (3.80-5.20) 06/02/17 22:50 Hgb 14.5 gm/dL (12-16) 06/02/17 22:50 Hct 43.7 % (41.0-60) 06/02/17 22:50 MCV 92.3 fl (81-100) 06/02/17 22:50 MCH 30.5 pg (27.0-31.0) 06/02/17 22:50 MCHC Differential 33.1 pg (28.0-36.0) 06/02/17 22:50 RDW 13.5 % (11.5-20.0) 06/02/17 22:50 Plt Count 208 Th/cmm (150-400) 06/02/17 22:50 MPV 8.0 fl 06/02/17 22:50 Neutrophils % 67.0 % (40.0-80.0) 06/02/17 22:50 Lymphocytes % 22.8 % (20.0-50.0) 06/02/17 22:50 Monocytes % 8.0 % (2.0-10.0) 06/02/17 22:50 Eosinophils % 2.0 % (0.0-5.0) 06/02/17 22:50 Basophils % 0.2 % (0.0-2.0) 06/02/17 22:50 Sodium 145 mEq/L (136-145) 06/02/17 22:50 Potassium 3.9 mEq/L (3.5-5.1) 06/02/17 22:50 Chloride 111 mEq/L (98-107) H 06/02/17 22:50 Carbon Dioxide 26.1 mEq/L (21.0-31.0) 06/02/17 22:50 Anion Gap 11.8 (7.0-16.0) 06/02/17 22:50 BUN 27 mg/dL (7-25) H 06/02/17 22:50 Creatinine 0.6 mg/dL (0.6-1.2) 06/02/17 22:50 Est GFR ( Amer) TNP 06/02/17 22:50 Est GFR (Non-Af Amer) TNP 06/02/17 22:50 BUN/Creatinine Ratio 45.0 06/02/17 22:50 Glucose 79 mg/dL (70-105) 06/02/17 22:50 Hemoglobin A1c % 5.9 % (4.0-6.0) 06/02/17 22:50 Calcium 9.5 mg/dL (8.6-10.3) 06/02/17 22:50 Total Bilirubin 0.5 mg/dL (0.3-1.0) 06/02/17 22:50 AST 17 U/L (13-39) 06/02/17 22:50 ALT 15 U/L (7-52) 06/02/17 22:50 Alkaline Phosphatase 76 U/L (34-104) 06/02/17 22:50 Total Protein 6.6 gm/dL (6.0-8.3) 06/02/17 22:50 Albumin 3.7 gm/dL (3.7-5.3) 06/02/17 22:50 Globulin 2.9 gm/dL 06/02/17 22:50 Albumin/Globulin Ratio 1.3 (1.0-1.8) 06/02/17 22:50 Triglycerides 53 mg/dL (<150) 06/02/17 22:50 Cholesterol 196 mg/dL (<200) 06/02/17 22:50 LDL Cholesterol Direct 93 mg/dL (75-193) 06/02/17 22:50 HDL Cholesterol 83 mg/dL (23-92) 06/02/17 22:50 TSH 2.92 uIU/ml (0.34-5.60) 06/02/17 22:50 Salicylates < 25.0 mg/L (30.0-100.0) L 06/02/17 22:50 Acetaminophen < 10.0 ug/mL (10.0-30.0) L 06/02/17 22:50 Ethyl Alcohol < 10 mg/dL (0-10) 06/02/17 22:50 RPR NONREACTIVE (NONREACTIVE) 06/02/17 22:50 - Physical Exam Vitals and I&O: Vital Signs Temp 97 F 06/07/17 07:06 Pulse 60 06/07/17 07:06 Resp 18 06/07/17 07:06 BP 117/52 06/07/17 07:06 Pulse Ox 97 06/06/17 21:17 Intake & Output 06/06/17 06/07/17 06/07/17 18:59 06:59 18:59 Intake Total 800 240 Balance 800 240 Intake: Oral 800 240 Other: # Voids 4 1 # Bowel Movements 1 Active Medications: Current Medications Acetaminophen (Tylenol) 650 mg PO Q6H PRN PRN Reason: Pain (Mild) Stop: 08/02/17 13:34 Amlodipine Besylate (Norvasc) 5 mg PO DAILY [facility] Stop: 08/03/17 08:59 Last Admin: 06/07/17 09:38 Dose: Not Given Aspirin (Aspirin Chewable) 81 mg PO DAILY [facility] Stop: 08/03/17 08:59 Last Admin: 06/07/17 09:38 Dose: 81 mg Bisacodyl (Dulcolax 10 Mg Supp) 10 mg RC DAILY PRN PRN Reason: Constipation Stop: 08/02/17 13:34 Famotidine (Pepcid) 20 mg PO QAM [facility] Stop: 08/03/17 08:59 Last Admin: 06/07/17 09:38 Dose: 20 mg Lorazepam (Ativan) 0.5 mg PO Q4HR PRN; Protocol PRN Reason: Anxiety Stop: 07/03/17 00:57 Magnesium Hydroxide (Milk Of Magnesia) 30 ml PO HS PRN PRN Reason: Constipation Stop: 08/02/17 13:34 Quetiapine Fumarate (Seroquel) 12.5 mg PO HS SIMON PRN Reason: Protocol Stop: 08/02/17 20:59 Last Admin: 06/06/17 21:14 Dose: 12.5 mg General: alert HEENT: NC/AT, PERRLA Neck: Supple Lungs: CTAB Cardiovascular: RRR, Normal S1, Normal S2 Abdomen: soft, non-tender, non-distended, positive bowel sound Neurological: alert Internal Medicine Assmt/Plan - Assessment Assessment: agitation htn dyslipidemia dementia - Plan Plan: fall precautions monitor BP continue current plan of care
--- NOTE | 2017-06-08 04:43 | Progress Notes ---
DATE: 06/07/2017 PSYCHIATRIC PROGRESS NOTE SUBJECTIVE: Staff was spoken to. The patient is interviewed. Mood is noted to be depressed. Affect is constricted. The patient is isolative and withdrawn. Coping skills are noted to be very poor. Sleep and appetite also noted to be very poor. The patient has been having difficult time to cope with the stress. No side effects of the medications are noted. No major behavioral problems are noted today. ASSESSMENT: The patient is still paranoid. PLAN: To continue the patient with supportive therapy. I encouraged the patient to verbalize the concerns rather than to act out. JOB# [id number]
[2017-06-08] MEDS: Aspirin 81mg Chewable Tab PO SCH (09:52)
--- NOTE | 2017-06-08 12:28 | Internal Medicine Prog Note ---
Internal Medicine Subjective - Subjective Service Date: 06/08/17 Patient is:: awake, verbal Per staff patient has:: no adverse event, no episodes of fall, tolerating meds Internal Medicine Objective - Results Result Diagrams: 06/02/17 22:50 06/02/17 22:50 Recent Labs: Laboratory Last Values WBC 5.9 Th/cmm (4.8-10.8) 06/02/17 22:50 RBC 4.74 Mil/cmm (3.80-5.20) 06/02/17 22:50 Hgb 14.5 gm/dL (12-16) 06/02/17 22:50 Hct 43.7 % (41.0-60) 06/02/17 22:50 MCV 92.3 fl (81-100) 06/02/17 22:50 MCH 30.5 pg (27.0-31.0) 06/02/17 22:50 MCHC Differential 33.1 pg (28.0-36.0) 06/02/17 22:50 RDW 13.5 % (11.5-20.0) 06/02/17 22:50 Plt Count 208 Th/cmm (150-400) 06/02/17 22:50 MPV 8.0 fl 06/02/17 22:50 Neutrophils % 67.0 % (40.0-80.0) 06/02/17 22:50 Lymphocytes % 22.8 % (20.0-50.0) 06/02/17 22:50 Monocytes % 8.0 % (2.0-10.0) 06/02/17 22:50 Eosinophils % 2.0 % (0.0-5.0) 06/02/17 22:50 Basophils % 0.2 % (0.0-2.0) 06/02/17 22:50 Sodium 145 mEq/L (136-145) 06/02/17 22:50 Potassium 3.9 mEq/L (3.5-5.1) 06/02/17 22:50 Chloride 111 mEq/L (98-107) H 06/02/17 22:50 Carbon Dioxide 26.1 mEq/L (21.0-31.0) 06/02/17 22:50 Anion Gap 11.8 (7.0-16.0) 06/02/17 22:50 BUN 27 mg/dL (7-25) H 06/02/17 22:50 Creatinine 0.6 mg/dL (0.6-1.2) 06/02/17 22:50 Est GFR ( Amer) TNP 06/02/17 22:50 Est GFR (Non-Af Amer) TNP 06/02/17 22:50 BUN/Creatinine Ratio 45.0 06/02/17 22:50 Glucose 79 mg/dL (70-105) 06/02/17 22:50 Hemoglobin A1c % 5.9 % (4.0-6.0) 06/02/17 22:50 Calcium 9.5 mg/dL (8.6-10.3) 06/02/17 22:50 Total Bilirubin 0.5 mg/dL (0.3-1.0) 06/02/17 22:50 AST 17 U/L (13-39) 06/02/17 22:50 ALT 15 U/L (7-52) 06/02/17 22:50 Alkaline Phosphatase 76 U/L (34-104) 06/02/17 22:50 Total Protein 6.6 gm/dL (6.0-8.3) 06/02/17 22:50 Albumin 3.7 gm/dL (3.7-5.3) 06/02/17 22:50 Globulin 2.9 gm/dL 06/02/17 22:50 Albumin/Globulin Ratio 1.3 (1.0-1.8) 06/02/17 22:50 Triglycerides 53 mg/dL (<150) 06/02/17 22:50 Cholesterol 196 mg/dL (<200) 06/02/17 22:50 LDL Cholesterol Direct 93 mg/dL (75-193) 06/02/17 22:50 HDL Cholesterol 83 mg/dL (23-92) 06/02/17 22:50 TSH 2.92 uIU/ml (0.34-5.60) 06/02/17 22:50 Salicylates < 25.0 mg/L (30.0-100.0) L 06/02/17 22:50 Acetaminophen < 10.0 ug/mL (10.0-30.0) L 06/02/17 22:50 Ethyl Alcohol < 10 mg/dL (0-10) 06/02/17 22:50 RPR NONREACTIVE (NONREACTIVE) 06/02/17 22:50 - Physical Exam Vitals and I&O: Vital Signs Temp 97.1 F 06/08/17 06:20 Pulse 60 06/08/17 06:20 Resp 18 06/08/17 06:20 BP 109/50 06/08/17 06:20 Pulse Ox 92 06/08/17 06:20 Intake & Output 06/07/17 06/08/17 06/08/17 18:59 06:59 18:59 Intake Total 950 180 Balance 950 180 Intake: Oral 950 180 Other: # Voids 4 2 # Bowel Movements 1 1 Active Medications: Current Medications Acetaminophen (Tylenol) 650 mg PO Q6H PRN PRN Reason: Pain (Mild) Stop: 08/02/17 13:34 Amlodipine Besylate (Norvasc) 5 mg PO DAILY [facility] Stop: 08/03/17 08:59 Last Admin: 06/08/17 09:52 Dose: Not Given Aspirin (Aspirin Chewable) 81 mg PO DAILY [facility] Stop: 08/03/17 08:59 Last Admin: 06/08/17 09:52 Dose: 81 mg Bisacodyl (Dulcolax 10 Mg Supp) 10 mg RC DAILY PRN PRN Reason: Constipation Stop: 08/02/17 13:34 Famotidine (Pepcid) 20 mg PO QAM [facility] Stop: 08/03/17 08:59 Last Admin: 06/08/17 09:52 Dose: 20 mg Lorazepam (Ativan) 0.5 mg PO Q4HR PRN; Protocol PRN Reason: Anxiety Stop: 07/03/17 00:57 Magnesium Hydroxide (Milk Of Magnesia) 30 ml PO HS PRN PRN Reason: Constipation Stop: 08/02/17 13:34 Quetiapine Fumarate (Seroquel) 12.5 mg PO HS SIMON PRN Reason: Protocol Stop: 08/02/17 20:59 Last Admin: 06/07/17 21:14 Dose: 12.5 mg General: alert HEENT: NC/AT, PERRLA Neck: Supple Lungs: CTAB Cardiovascular: RRR, Normal S1, Normal S2 Abdomen: soft, non-tender, non-distended, positive bowel sound Neurological: alert Internal Medicine Assmt/Plan - Assessment Assessment: agitation htn dyslipidemia dementia - Plan Plan: fall precautions monitor BP continue current plan of care Nutritional Asmnt/Malnutr-PDOC - Dietary Evaluation Malnutrition Findings (Please click <Entered> for more info): Nutritional Asmnt/Malnutrition Start: 06/07/17 16: 58 Text: Status: Complete Freq: Document 06/07/17 16:58 [email or web address] (Rec: 06/07/17 17:05 [email or web address]) Nutritional Asmnt/Malnutrition Patient General Information Nutritional Screening Moderate Risk Diagnosis psychosis Pertinent Medical Hx/Surgical Hx HTN, dyslipidemia, dementia Subjective Information Per EMR, PO intake 50-75%. Per nurse note, pt was confused, oriented to self only. Current Diet Order/ Nutrition Support mech soft ground Pertinent Medications pepcid, seroquel Pertinent Labs 06/02 Cl 111, BUN 27 Nutritional Hx/Data Height 5 ft 3 in Height (Calculated Centimeters) 160.0 Current Weight (lbs) 105 lb Weight (Calculated Kilograms) 47.6 Weight (Calculated Grams) 20643.2 [place] Body Weight 115 Body Mass Index (BMI) 18.6 Weight Status Approriate GI Symptoms GI Symptoms None Last BM 4/2 Difficult in: None Skin Integrity/Comment: redness, bruises Current %PO Fair (50-74%) Estimated Nutritional Goals BEE in Kcals: Using Current wt Calories/Kcals/Kg 25-30 Kcals Calculated 1321-8603 Protein: Using Current wt Protein g/k-1.2 Protein Calculated 48-58 Fluid: ml 1200-1440ml (1ml/ckal) Nutritional Problem No current Nutrition Prob Problem N/A Intervention/Recommendation Comments 1. Continue with current diet as ordered. 2. Monitor PO intake, wt, labs and skin integrity 3. F/U as low risk in 7 days, 06/14, po check 06/09 Expected Outcomes/Goals Expected Outcomes/Goals 1. PO intake to meet at least 75% of nutritional needs. 2. Wt stability, skin to remain intact, labs to approach WNL.
--- NOTE | 2017-06-08 19:56 | Progress Notes ---
DATE: 06/08/2017 SUBJECTIVE: Staff was spoken to. The patient is interviewed. Mood is very depressed. Affect is constricted. The patient is isolative and withdrawn. The patient has been having difficult time to cope with the stress. The patient is only on 12.5 mg of the Seroquel and has not been able to tolerate the medications and hence decided to hold the psychotropic medication today. The patient is going to be requested to have the swallowing evaluation and patient is going to be closely monitored and the patient is going to be maintained only on Ativan on a p.r.n. basis and followed up with the supportive therapy. JOB# [id number]
--- NOTE | 2017-06-09 09:03 | Diagnostic Imaging Report ---
Portable chest x-ray HISTORY: Cough The heart size is normal. No acute focal pulmonary processes. Atherosclerotic calcination seen in the aorta. Cardiac pacemaker lead wires project over the right atrium and right ventricle. Catheter tubing noted over the right neck, chest, and abdomen. IMPRESSION: 1. No acute focal pulmonary processes 2. Atherosclerotic vascular changes with cardiac pacemaker placement
[2017-06-09] MEDS: Aspirin 81mg Chewable Tab PO SCH (09:47)
--- NOTE | 2017-06-09 13:49 | Internal Medicine Prog Note ---
Internal Medicine Subjective - Subjective Service Date: 06/09/17 Patient is:: awake, verbal Per staff patient has:: no adverse event, no episodes of fall, tolerating meds Internal Medicine Objective - Results Result Diagrams: 06/02/17 22:50 06/02/17 22:50 Recent Labs: Laboratory Last Values WBC 5.9 Th/cmm (4.8-10.8) 06/02/17 22:50 RBC 4.74 Mil/cmm (3.80-5.20) 06/02/17 22:50 Hgb 14.5 gm/dL (12-16) 06/02/17 22:50 Hct 43.7 % (41.0-60) 06/02/17 22:50 MCV 92.3 fl (81-100) 06/02/17 22:50 MCH 30.5 pg (27.0-31.0) 06/02/17 22:50 MCHC Differential 33.1 pg (28.0-36.0) 06/02/17 22:50 RDW 13.5 % (11.5-20.0) 06/02/17 22:50 Plt Count 208 Th/cmm (150-400) 06/02/17 22:50 MPV 8.0 fl 06/02/17 22:50 Neutrophils % 67.0 % (40.0-80.0) 06/02/17 22:50 Lymphocytes % 22.8 % (20.0-50.0) 06/02/17 22:50 Monocytes % 8.0 % (2.0-10.0) 06/02/17 22:50 Eosinophils % 2.0 % (0.0-5.0) 06/02/17 22:50 Basophils % 0.2 % (0.0-2.0) 06/02/17 22:50 Sodium 145 mEq/L (136-145) 06/02/17 22:50 Potassium 3.9 mEq/L (3.5-5.1) 06/02/17 22:50 Chloride 111 mEq/L (98-107) H 06/02/17 22:50 Carbon Dioxide 26.1 mEq/L (21.0-31.0) 06/02/17 22:50 Anion Gap 11.8 (7.0-16.0) 06/02/17 22:50 BUN 27 mg/dL (7-25) H 06/02/17 22:50 Creatinine 0.6 mg/dL (0.6-1.2) 06/02/17 22:50 Est GFR ( Amer) TNP 06/02/17 22:50 Est GFR (Non-Af Amer) TNP 06/02/17 22:50 BUN/Creatinine Ratio 45.0 06/02/17 22:50 Glucose 79 mg/dL (70-105) 06/02/17 22:50 Hemoglobin A1c % 5.9 % (4.0-6.0) 06/02/17 22:50 Calcium 9.5 mg/dL (8.6-10.3) 06/02/17 22:50 Total Bilirubin 0.5 mg/dL (0.3-1.0) 06/02/17 22:50 AST 17 U/L (13-39) 06/02/17 22:50 ALT 15 U/L (7-52) 06/02/17 22:50 Alkaline Phosphatase 76 U/L (34-104) 06/02/17 22:50 Total Protein 6.6 gm/dL (6.0-8.3) 06/02/17 22:50 Albumin 3.7 gm/dL (3.7-5.3) 06/02/17 22:50 Globulin 2.9 gm/dL 06/02/17 22:50 Albumin/Globulin Ratio 1.3 (1.0-1.8) 06/02/17 22:50 Triglycerides 53 mg/dL (<150) 06/02/17 22:50 Cholesterol 196 mg/dL (<200) 06/02/17 22:50 LDL Cholesterol Direct 93 mg/dL (75-193) 06/02/17 22:50 HDL Cholesterol 83 mg/dL (23-92) 06/02/17 22:50 TSH 2.92 uIU/ml (0.34-5.60) 06/02/17 22:50 Salicylates < 25.0 mg/L (30.0-100.0) L 06/02/17 22:50 Acetaminophen < 10.0 ug/mL (10.0-30.0) L 06/02/17 22:50 Ethyl Alcohol < 10 mg/dL (0-10) 06/02/17 22:50 RPR NONREACTIVE (NONREACTIVE) 06/02/17 22:50 - Physical Exam Vitals and I&O: Vital Signs Temp 97.6 F 06/09/17 06:33 Pulse 66 06/09/17 08:00 Resp 20 06/09/17 08:00 BP 136/75 06/09/17 06:33 Pulse Ox 98 06/09/17 06:33 Intake & Output 06/08/17 06/09/17 06/09/17 18:59 06:59 18:59 Intake Total 800 240 Balance 800 240 Intake: Oral 800 240 Other: # Voids 2 2 # Bowel Movements 0 Active Medications: Current Medications Acetaminophen (Tylenol) 650 mg PO Q6H PRN PRN Reason: Pain (Mild) Stop: 08/02/17 13:34 Amlodipine Besylate (Norvasc) 5 mg PO DAILY [facility] Stop: 08/03/17 08:59 Last Admin: 06/08/17 09:52 Dose: Not Given Aspirin (Aspirin Chewable) 81 mg PO DAILY [facility] Stop: 08/03/17 08:59 Last Admin: 06/09/17 09:47 Dose: 81 mg Bisacodyl (Dulcolax 10 Mg Supp) 10 mg RC DAILY PRN PRN Reason: Constipation Stop: 08/02/17 13:34 Famotidine (Pepcid) 20 mg PO QAM [facility] Stop: 08/03/17 08:59 Last Admin: 06/09/17 09:47 Dose: 20 mg Lorazepam (Ativan) 0.5 mg PO Q4HR PRN; Protocol PRN Reason: Anxiety Stop: 07/03/17 00:57 Magnesium Hydroxide (Milk Of Magnesia) 30 ml PO HS PRN PRN Reason: Constipation Stop: 08/02/17 13:34 General: alert HEENT: NC/AT, PERRLA Neck: Supple Lungs: CTAB Cardiovascular: RRR, Normal S1, Normal S2 Abdomen: soft, non-tender, non-distended, positive bowel sound Neurological: alert Internal Medicine Assmt/Plan - Assessment Assessment: agitation htn dyslipidemia dementia - Plan Plan: fall precautions monitor BP continue current plan of care Nutritional Asmnt/Malnutr-PDOC - Dietary Evaluation Malnutrition Findings (Please click <Entered> for more info): Nutritional Asmnt/Malnutrition Start: 06/07/17 16: 58 Text: Status: Complete Freq: Document 06/07/17 16:58 LCHENG (Rec: 06/07/17 17:05 [email or web address]) Nutritional Asmnt/Malnutrition Patient General Information Nutritional Screening Moderate Risk Diagnosis psychosis Pertinent Medical Hx/Surgical Hx HTN, dyslipidemia, dementia Subjective Information Per EMR, PO intake 50-75%. Per nurse note, pt was confused, oriented to self only. Current Diet Order/ Nutrition Support mech soft ground Pertinent Medications pepcid, seroquel Pertinent Labs 06/02 Cl 111, BUN 27 Nutritional Hx/Data Height 5 ft 3 in Height (Calculated Centimeters) 160.0 Current Weight (lbs) 105 lb Weight (Calculated Kilograms) 47.6 Weight (Calculated Grams) 75415.2 [place] Body Weight 115 Body Mass Index (BMI) 18.6 Weight Status Approriate GI Symptoms GI Symptoms None Last BM 4/2 Difficult in: None Skin Integrity/Comment: redness, bruises Current %PO Fair (50-74%) Estimated Nutritional Goals BEE in Kcals: Using Current wt Calories/Kcals/Kg 25-30 Kcals Calculated 9787-5057 Protein: Using Current wt Protein g/k-1.2 Protein Calculated 48-58 Fluid: ml 1200-1440ml (1ml/ckal) Nutritional Problem No current Nutrition Prob Problem N/A Intervention/Recommendation Comments 1. Continue with current diet as ordered. 2. Monitor PO intake, wt, labs and skin integrity 3. F/U as low risk in 7 days, 06/14, po check 06/09 Expected Outcomes/Goals Expected Outcomes/Goals 1. PO intake to meet at least 75% of nutritional needs. 2. Wt stability, skin to remain intact, labs to approach WNL.
--- NOTE | 2017-06-09 19:20 | Progress Notes ---
DATE: 06/09/2017 SUBJECTIVE: Staff was spoken to. The patient is interviewed. Mood is noted to be anxious. The patient's insight and judgment to be still impaired. Impulse control seems to be improving. No side effects to the medications are noted. The patient has been very lethargic the other day and hence the Seroquel has been discontinued. No side effects to the medications are noted. At this time, the patient is being maintained just with the Ativan on a p.r.n. basis. ASSESSMENT: The patient is getting less irritable. PLAN: To continue the patient with the supportive therapy and followup. JOB# [id number]
[2017-06-10] MEDS: Aspirin 81mg Chewable Tab PO SCH (09:46)
--- NOTE | 2017-06-10 14:58 | Internal Medicine Prog Note ---
Internal Medicine Subjective - Subjective Service Date: 06/10/17 Patient is:: awake, verbal Per staff patient has:: no adverse event, no episodes of fall, tolerating meds Internal Medicine Objective - Results Result Diagrams: 06/02/17 22:50 06/02/17 22:50 Recent Labs: Laboratory Last Values WBC 5.9 Th/cmm (4.8-10.8) 06/02/17 22:50 RBC 4.74 Mil/cmm (3.80-5.20) 06/02/17 22:50 Hgb 14.5 gm/dL (12-16) 06/02/17 22:50 Hct 43.7 % (41.0-60) 06/02/17 22:50 MCV 92.3 fl (81-100) 06/02/17 22:50 MCH 30.5 pg (27.0-31.0) 06/02/17 22:50 MCHC Differential 33.1 pg (28.0-36.0) 06/02/17 22:50 RDW 13.5 % (11.5-20.0) 06/02/17 22:50 Plt Count 208 Th/cmm (150-400) 06/02/17 22:50 MPV 8.0 fl 06/02/17 22:50 Neutrophils % 67.0 % (40.0-80.0) 06/02/17 22:50 Lymphocytes % 22.8 % (20.0-50.0) 06/02/17 22:50 Monocytes % 8.0 % (2.0-10.0) 06/02/17 22:50 Eosinophils % 2.0 % (0.0-5.0) 06/02/17 22:50 Basophils % 0.2 % (0.0-2.0) 06/02/17 22:50 Sodium 145 mEq/L (136-145) 06/02/17 22:50 Potassium 3.9 mEq/L (3.5-5.1) 06/02/17 22:50 Chloride 111 mEq/L (98-107) H 06/02/17 22:50 Carbon Dioxide 26.1 mEq/L (21.0-31.0) 06/02/17 22:50 Anion Gap 11.8 (7.0-16.0) 06/02/17 22:50 BUN 27 mg/dL (7-25) H 06/02/17 22:50 Creatinine 0.6 mg/dL (0.6-1.2) 06/02/17 22:50 Est GFR ( Amer) TNP 06/02/17 22:50 Est GFR (Non-Af Amer) TNP 06/02/17 22:50 BUN/Creatinine Ratio 45.0 06/02/17 22:50 Glucose 79 mg/dL (70-105) 06/02/17 22:50 Hemoglobin A1c % 5.9 % (4.0-6.0) 06/02/17 22:50 Calcium 9.5 mg/dL (8.6-10.3) 06/02/17 22:50 Total Bilirubin 0.5 mg/dL (0.3-1.0) 06/02/17 22:50 AST 17 U/L (13-39) 06/02/17 22:50 ALT 15 U/L (7-52) 06/02/17 22:50 Alkaline Phosphatase 76 U/L (34-104) 06/02/17 22:50 Total Protein 6.6 gm/dL (6.0-8.3) 06/02/17 22:50 Albumin 3.7 gm/dL (3.7-5.3) 06/02/17 22:50 Globulin 2.9 gm/dL 06/02/17 22:50 Albumin/Globulin Ratio 1.3 (1.0-1.8) 06/02/17 22:50 Triglycerides 53 mg/dL (<150) 06/02/17 22:50 Cholesterol 196 mg/dL (<200) 06/02/17 22:50 LDL Cholesterol Direct 93 mg/dL (75-193) 06/02/17 22:50 HDL Cholesterol 83 mg/dL (23-92) 06/02/17 22:50 TSH 2.92 uIU/ml (0.34-5.60) 06/02/17 22:50 Salicylates < 25.0 mg/L (30.0-100.0) L 06/02/17 22:50 Acetaminophen < 10.0 ug/mL (10.0-30.0) L 06/02/17 22:50 Ethyl Alcohol < 10 mg/dL (0-10) 06/02/17 22:50 RPR NONREACTIVE (NONREACTIVE) 06/02/17 22:50 - Physical Exam Vitals and I&O: Vital Signs Temp 97.9 F 06/10/17 06:44 Pulse 72 06/10/17 09:43 Resp 18 06/10/17 06:44 BP 122/71 06/10/17 09:43 Pulse Ox 97 06/10/17 06:44 Intake & Output 06/09/17 06/10/17 06/10/17 18:59 06:59 18:59 Intake Total 600 120 Balance 600 120 Intake: Oral 600 120 Other: # Voids 2 3 # Bowel Movements 0 Active Medications: Current Medications Acetaminophen (Tylenol) 650 mg PO Q6H PRN PRN Reason: Pain (Mild) Stop: 08/02/17 13:34 Amlodipine Besylate (Norvasc) 5 mg PO DAILY [facility] Stop: 08/03/17 08:59 Last Admin: 06/10/17 09:43 Dose: 5 mg Aspirin (Aspirin Chewable) 81 mg PO DAILY [facility] Stop: 08/03/17 08:59 Last Admin: 06/10/17 09:46 Dose: 81 mg Bisacodyl (Dulcolax 10 Mg Supp) 10 mg RC DAILY PRN PRN Reason: Constipation Stop: 08/02/17 13:34 Famotidine (Pepcid) 20 mg PO QAM [facility] Stop: 08/03/17 08:59 Last Admin: 06/10/17 09:43 Dose: 20 mg Lorazepam (Ativan) 0.5 mg PO Q4HR PRN; Protocol PRN Reason: Anxiety Stop: 07/03/17 00:57 Last Admin: 06/10/17 09:46 Dose: 0.5 mg Magnesium Hydroxide (Milk Of Magnesia) 30 ml PO HS PRN PRN Reason: Constipation Stop: 08/02/17 13:34 General: alert HEENT: NC/AT, PERRLA Neck: Supple Lungs: CTAB Cardiovascular: RRR, Normal S1, Normal S2 Abdomen: soft, non-tender, non-distended, positive bowel sound Neurological: alert Internal Medicine Assmt/Plan - Assessment Assessment: agitation htn dyslipidemia dementia - Plan Plan: fall precautions monitor BP continue current plan of care Nutritional Asmnt/Malnutr-PDOC - Dietary Evaluation Malnutrition Findings (Please click <Entered> for more info): Nutritional Asmnt/Malnutrition Start: 06/07/17 16: 58 Text: Status: Complete Freq: Document 06/07/17 16:58 SULEMAN (Rec: 06/07/17 17:05 [facility]LEMAN [email or web address]) Nutritional Asmnt/Malnutrition Patient General Information Nutritional Screening Moderate Risk Diagnosis psychosis Pertinent Medical Hx/Surgical Hx HTN, dyslipidemia, dementia Subjective Information Per EMR, PO intake 50-75%. Per nurse note, pt was confused, oriented to self only. Current Diet Order/ Nutrition Support mech soft ground Pertinent Medications pepcid, seroquel Pertinent Labs 06/02 Cl 111, BUN 27 Nutritional Hx/Data Height 5 ft 3 in Height (Calculated Centimeters) 160.0 Current Weight (lbs) 105 lb Weight (Calculated Kilograms) 47.6 Weight (Calculated Grams) 12306.2 [place] Body Weight 115 Body Mass Index (BMI) 18.6 Weight Status Approriate GI Symptoms GI Symptoms None Last BM 4/2 Difficult in: None Skin Integrity/Comment: redness, bruises Current %PO Fair (50-74%) Estimated Nutritional Goals BEE in Kcals: Using Current wt Calories/Kcals/Kg 25-30 Kcals Calculated 7538-7444 Protein: Using Current wt Protein g/k-1.2 Protein Calculated 48-58 Fluid: ml 1200-1440ml (1ml/ckal) Nutritional Problem No current Nutrition Prob Problem N/A Intervention/Recommendation Comments 1. Continue with current diet as ordered. 2. Monitor PO intake, wt, labs and skin integrity 3. F/U as low risk in 7 days, 06/14, po check 06/09 Expected Outcomes/Goals Expected Outcomes/Goals 1. PO intake to meet at least 75% of nutritional needs. 2. Wt stability, skin to remain intact, labs to approach WNL.
--- NOTE | 2017-06-11 02:29 | Progress Notes ---
DATE: 06/10/2017 PSYCHIATRIC PROGRESS NOTE SUBJECTIVE: Staff was spoken to. The patient is interviewed. Mood is noted to be anxious. The patient has been maintained only on lorazepam because with minimal doses of the Seroquel. The patient has been getting too drowsy and is not able to wake up. No major behavioral problems are noted today. The patient, however, continues to be holding the baby doll and not making much sense. The patient's short and long-term memory appeared to be very poor. ASSESSMENT: The patient is still paranoid and psychotic. PLAN: To continue the patient with the supportive therapy and followup. JOB# [id number]
[2017-06-11] MEDS: Aspirin 81mg Chewable Tab PO SCH (09:54)
--- NOTE | 2017-06-11 12:41 | Internal Medicine Prog Note ---
Internal Medicine Subjective - Subjective Service Date: 06/11/17 Patient is:: awake, verbal Per staff patient has:: no adverse event, no episodes of fall, tolerating meds Internal Medicine Objective - Results Result Diagrams: 06/02/17 22:50 06/02/17 22:50 Recent Labs: Laboratory Last Values WBC 5.9 Th/cmm (4.8-10.8) 06/02/17 22:50 RBC 4.74 Mil/cmm (3.80-5.20) 06/02/17 22:50 Hgb 14.5 gm/dL (12-16) 06/02/17 22:50 Hct 43.7 % (41.0-60) 06/02/17 22:50 MCV 92.3 fl (81-100) 06/02/17 22:50 MCH 30.5 pg (27.0-31.0) 06/02/17 22:50 MCHC Differential 33.1 pg (28.0-36.0) 06/02/17 22:50 RDW 13.5 % (11.5-20.0) 06/02/17 22:50 Plt Count 208 Th/cmm (150-400) 06/02/17 22:50 MPV 8.0 fl 06/02/17 22:50 Neutrophils % 67.0 % (40.0-80.0) 06/02/17 22:50 Lymphocytes % 22.8 % (20.0-50.0) 06/02/17 22:50 Monocytes % 8.0 % (2.0-10.0) 06/02/17 22:50 Eosinophils % 2.0 % (0.0-5.0) 06/02/17 22:50 Basophils % 0.2 % (0.0-2.0) 06/02/17 22:50 Sodium 145 mEq/L (136-145) 06/02/17 22:50 Potassium 3.9 mEq/L (3.5-5.1) 06/02/17 22:50 Chloride 111 mEq/L (98-107) H 06/02/17 22:50 Carbon Dioxide 26.1 mEq/L (21.0-31.0) 06/02/17 22:50 Anion Gap 11.8 (7.0-16.0) 06/02/17 22:50 BUN 27 mg/dL (7-25) H 06/02/17 22:50 Creatinine 0.6 mg/dL (0.6-1.2) 06/02/17 22:50 Est GFR ( Amer) TNP 06/02/17 22:50 Est GFR (Non-Af Amer) TNP 06/02/17 22:50 BUN/Creatinine Ratio 45.0 06/02/17 22:50 Glucose 79 mg/dL (70-105) 06/02/17 22:50 POC Glucose 364 MG/DL (70 - 105) H 06/11/17 11:50 Hemoglobin A1c % 5.9 % (4.0-6.0) 06/02/17 22:50 Calcium 9.5 mg/dL (8.6-10.3) 06/02/17 22:50 Total Bilirubin 0.5 mg/dL (0.3-1.0) 06/02/17 22:50 AST 17 U/L (13-39) 06/02/17 22:50 ALT 15 U/L (7-52) 06/02/17 22:50 Alkaline Phosphatase 76 U/L (34-104) 06/02/17 22:50 Total Protein 6.6 gm/dL (6.0-8.3) 06/02/17 22:50 Albumin 3.7 gm/dL (3.7-5.3) 06/02/17 22:50 Globulin 2.9 gm/dL 06/02/17 22:50 Albumin/Globulin Ratio 1.3 (1.0-1.8) 06/02/17 22:50 Triglycerides 53 mg/dL (<150) 06/02/17 22:50 Cholesterol 196 mg/dL (<200) 06/02/17 22:50 LDL Cholesterol Direct 93 mg/dL (75-193) 06/02/17 22:50 HDL Cholesterol 83 mg/dL (23-92) 06/02/17 22:50 TSH 2.92 uIU/ml (0.34-5.60) 06/02/17 22:50 Salicylates < 25.0 mg/L (30.0-100.0) L 06/02/17 22:50 Acetaminophen < 10.0 ug/mL (10.0-30.0) L 06/02/17 22:50 Ethyl Alcohol < 10 mg/dL (0-10) 06/02/17 22:50 RPR NONREACTIVE (NONREACTIVE) 06/02/17 22:50 - Physical Exam Vitals and I&O: Vital Signs Temp 97.8 F 06/10/17 16:03 Pulse 70 06/11/17 09:54 Resp 18 06/10/17 16:03 BP 115/60 06/11/17 09:54 Pulse Ox 96 06/10/17 16:03 Active Medications: Current Medications Acetaminophen (Tylenol) 650 mg PO Q6H PRN PRN Reason: Pain (Mild) Stop: 08/02/17 13:34 Amlodipine Besylate (Norvasc) 5 mg PO DAILY [facility] Stop: 08/03/17 08:59 Last Admin: 06/11/17 09:54 Dose: 5 mg Aspirin (Aspirin Chewable) 81 mg PO DAILY [facility] Stop: 08/03/17 08:59 Last Admin: 06/11/17 09:54 Dose: 81 mg Bisacodyl (Dulcolax 10 Mg Supp) 10 mg RC DAILY PRN PRN Reason: Constipation Stop: 08/02/17 13:34 Famotidine (Pepcid) 20 mg PO QAM [facility] Stop: 08/03/17 08:59 Last Admin: 06/11/17 09:54 Dose: 20 mg Lorazepam (Ativan) 0.5 mg PO Q4HR PRN; Protocol PRN Reason: Anxiety Stop: 07/03/17 00:57 Last Admin: 06/10/17 09:46 Dose: 0.5 mg Magnesium Hydroxide (Milk Of Magnesia) 30 ml PO HS PRN PRN Reason: Constipation Stop: 08/02/17 13:34 General: alert HEENT: NC/AT, PERRLA Neck: Supple Lungs: CTAB Cardiovascular: RRR, Normal S1, Normal S2 Abdomen: soft, non-tender, non-distended, positive bowel sound Neurological: alert Internal Medicine Assmt/Plan - Assessment Assessment: agitation htn dyslipidemia dementia - Plan Plan: fall precautions monitor BP continue current plan of care Nutritional Asmnt/Malnutr-PDOC - Dietary Evaluation Malnutrition Findings (Please click <Entered> for more info): Nutritional Asmnt/Malnutrition Start: 06/07/17 16: 58 Text: Status: Complete Freq: Document 06/07/17 16:58 LCHENG (Rec: 06/07/17 17:05 [facility] [email or web address]) Nutritional Asmnt/Malnutrition Patient General Information Nutritional Screening Moderate Risk Diagnosis psychosis Pertinent Medical Hx/Surgical Hx HTN, dyslipidemia, dementia Subjective Information Per EMR, PO intake 50-75%. Per nurse note, pt was confused, oriented to self only. Current Diet Order/ Nutrition Support mech soft ground Pertinent Medications pepcid, seroquel Pertinent Labs 06/02 Cl 111, BUN 27 Nutritional Hx/Data Height 5 ft 3 in Height (Calculated Centimeters) 160.0 Current Weight (lbs) 105 lb Weight (Calculated Kilograms) 47.6 Weight (Calculated Grams) 05681.2 [place] Body Weight 115 Body Mass Index (BMI) 18.6 Weight Status Approriate GI Symptoms GI Symptoms None Last BM / Difficult in: None Skin Integrity/Comment: redness, bruises Current %PO Fair (50-74%) Estimated Nutritional Goals BEE in Kcals: Using Current wt Calories/Kcals/Kg 25-30 Kcals Calculated 1656-9927 Protein: Using Current wt Protein g/k-1.2 Protein Calculated 48-58 Fluid: ml 1200-1440ml (1ml/ckal) Nutritional Problem No current Nutrition Prob Problem N/A Intervention/Recommendation Comments 1. Continue with current diet as ordered. 2. Monitor PO intake, wt, labs and skin integrity 3. F/U as low risk in 7 days, 06/14, po check 06/09 Expected Outcomes/Goals Expected Outcomes/Goals 1. PO intake to meet at least 75% of nutritional needs. 2. Wt stability, skin to remain intact, labs to approach WNL.
--- NOTE | 2017-06-12 04:16 | Discharge Summary ---
DATE OF DISCHARGE: 06/11/2017 SUBJECTIVE: The patient is an 82-year-old woman[facility] JUSTIFICATION OF HOSPITALIZATION: The patient is admitted on a voluntary basis in view of disruptive behavior. CHIEF COMPLAINT: "I don't know." DIAGNOSES AT THE TIME OF ADMISSION: AXIS I: Psychotic disorder, not otherwise specified. 1B: Dementia and behavioral change, secondary trait. AXIS II: None. AXIS III: As per Dr. Thomas. HISTORY OF PRESENT ILLNESS: Please refer to 06/03/2017 dictation done by me. Physical examination at the time of admission was done by Dr. Thomas and is noted to be significant for hypertension. HOSPITAL COURSE AND RESPONSE TO TREATMENT: In view of the aggressive behavior initially, the patient has been started on the Seroquel, but the patient became too lethargic and that medication has to be discontinued and the patient has been maintained just only with Ativan and Ambien on a p.r.n. basis. The patient started fairly well and the patient was finally discharged on 06/11/2017 with recommendation that she is going to be seeking treatment on an outpatient basis. Mental examination at the time of the discharge, the patient's mood noted to be anxious. Affect is appropriate. Insight and judgment are improving. Impulse control seems to be fair. Coping skills are also noted to be fair. The patient continued to be confused and demented, but no aggressive behavior was noted at the time of the discharge. Condition at the time of discharge noted to be stable. DIAGNOSES AT THE TIME OF DISCHARGE AXIS I: Dementia and behavioral change, secondary trait. AXIS II: None. AXIS III: Hypertension. AFTERCARE PLAN: The patient is discharged back to the [facility] for further followup. JOB# [id number]
== END 2017-06-11 17:10 | DRG 885 ==
LOC: ER 21:42 → GERO 23:45
PROVIDERS: ADMIT Psychiatry & Neurology Psychiatry; ATTEND Psychiatry & Neurology Psychiatry
DX: F29 Unspecified psychosis not due to a substance or known physiological condition (principal); F03.91 Unspecified dementia, unspecified severity, with behavioral disturbance; E78.5 Hyperlipidemia, unspecified; F31.9 Bipolar disorder, unspecified; I10 Essential (primary) hypertension; Z82.49 Family history of ischemic heart disease and other diseases of the circulatory system
CPT/HCPCS: 36415-UA; 71045-TC; 80053-TC; 80061-TC; 80320-TC; 80329-TC; 82948-90; 83036-90; 84443-TC; 85025-TC; 86592-TC; 93005; X3401; Z7610

== ENCOUNTER 2018-01-03 21:13 | Inpatient (IN) | payer MEDICARE ==
[2018-01-03 21:52] LABS: % BASOPHILS 2.4 % (0.0-2.0); % EOSINOPHILS 2.9 % (0.0-5.0); % LYMPHOCYTES 22.8 % (20.0-50.0); % MONOCYTES 5.1 % (2.0-10.0); % NEUTROPHILS 66.8 % (40.0-80.0); BASOPHILE ABSOLUTE 0.1 Th/cumm (0-0.2); EOSINOPHILE ABSOLUTE 0.2 Th/cmm (0.1-0.4); HEMATOCRIT 40.8 % (41.0-60); HEMOGLOBIN 14.2 gm/dL (12-16); LYMPHOCYTE ABSOLUTE 1.3 Th/cmm (1.5-3.0); MEAN CELL VOLUME 93.9 fl (81-100); MEAN CORPUSCULAR HEMOGLOBIN 32.7 pg (27.0-31.0); MEAN CORPUSCULAR HGB CONC 34.8 pg (28.0-36.0); MEAN PLATELET VOLUME 7.6 fl; MONOCYTE ABSOLUTE 0.3 Th/cmm (0.3-1.0); PLATELET COUNT 231 Th/cmm (150-400); RED BLOOD COUNT 4.34 Mil/cmm (3.80-5.20); RED CELL DISTRIBUTION WIDTH 13.5 % (11.5-20.0); WHITE BLOOD COUNT 5.9 Th/cmm (4.8-10.8)
[2018-01-03 22:14] LABS: ALB/GLOB RATIO 1.7 (1.0-1.8); ALBUMIN 3.8 gm/dL (3.7-5.3); ALKALINE PHOSPHATASE 55 U/L (34-104); BILIRUBIN,TOTAL 0.5 mg/dL (0.3-1.0); BUN - UREA NITROGEN 24 mg/dL (7-25); CALCIUM SERUM 8.9 mg/dL (8.6-10.3); CARBON DIOXIDE 21.1 mEq/L (21.0-31.0); CHLORIDE 110 mEq/L (98-107); CHOLESTEROL 212 mg/dL (<200); CREATININE - SERUM 0.6 mg/dL (0.6-1.2); GLUCOSE 101 mg/dL (70-105); HDL -HIGH DENSITY LIPOPROTEIN 82 mg/dL (23-92); POTASSIUM SERUM 4.1 mEq/L (3.5-5.1); SGOT 14 U/L (13-39); SGPT/ALT 13 U/L (7-52); SODIUM SERUM 141 mEq/L (136-145); TOTAL PROTEIN,SERUM 6.1 gm/dL (6.0-8.3); TRIGLYCERIDES 102 mg/dL (<150)
--- NOTE | 2018-01-03 23:21 | ED Physician Chart ---
ED Chief Complaint/HPI - Patient Information Date Seen:: 01/03/18 Time Seen:: 21:45 Chief Complaint:: medical clearance for calin psyc History of Present Illness:: location: general quality: depressed mood and behavior severity: moderate duration: one day context: pt with history of depression. today with worsening of symptoms as reported by SNF staff. reported this to PCP who advised send to ER for physician assessment to determine if there is an underlying acute medical condition. pt appears stable while at SNF except for overt worsening of depressed mood and behavior. SNF staff do not report any acute suicidal attempt. pt with no acute pain complaint, no SOB. mod factors: none assoc s/s: none hx from EMS, SNF staff, PCP, pt Allergies:: Allergies Allergy/AdvReac Type Severity Reaction Status Date / Time No Known Allergies Allergy Verified 01/03/18 21:34 Vitals:: Vital Signs - 8 hr 01/03/18 01/03/18 01/03/18 21:15 23:12 23:13 Temp 98.3 F 98.0 F 98.0 F HR 70 71 71 RR 18 18 18 BP 107/52 122/68 122/68 O2 Sat % 95 98 98 Historian:: Patient, EMS Review:: Nurse's Note Reviewed, EMS run form Reviewed ED Review of Systems - Review of Systems General/Constitutional: No fever Skin: No rash ENT: No nasal drainage Neck: No stiffness Cardio Vascular: No edema Pulmonary: No cough GI: No vomiting G/U: No hematuria Psychiatric: Depression Allergic/Immuno: No urticaria Neurological: No syncope, No seizure ED Past Medical History - Past Medical History Past Medical History: HTN, Asthma/COPD, PUD/GERD Family History: None Social History: Non Smoker, No Alcohol, No Drug Use, Care Facility Surgical History: None Psychiatricy History: Depression Medication: Reviewed Family Medical History - Family Member Mother History Unknown: Yes Ethnicity: Unknown Living Status: Unknown Hx Family Cancer: (Unknown) Hx Family Coronary Artery Disease: (Unknown) Hx Family Congestive Heart Failure: (Unknown) Hx Family Hypertension: (Unknown) Hx Family Stroke: (Unknown) Hx Family Diabetes: (Unknown) Hx Family Seizures: (Unknown) Hx Family Dementia: (Unknown) Hx Family AIDS: (Unknown) Hx Family COPD: (Unknown) Hx Family Hepatitis: (Unknown) Hx Family Psychiatric Problems: (Unknown) Hx Family Tuberculosis: (Unknown) ED Physical Exam - Physical Examination General/Constitutional: Awake, Well-developed, well-nourished, Alert, No distress, Non-toxic appearing, Ambulatory Head: Atraumatic Eyes: Lids, conjuctiva normal, PERRL, EOMI Skin: Nl inspection, No skin lesions, Well hydrated ENMT: External ears, nose nl, Oropharynx nl, Tonsils nl Neck: Nontender, Full ROM w/o pain, No nuchal rigidity Respiratory: Nl effort/Exclusion, Clear to Auscultation, No Wheeze/Rhonchi/Rales Cardio Vascular: RRR, No murmur, gallop, rubs GI: No tenderness/rebounding/guarding, No McBurney tenderness : No CVA tenderness Extremities: No tenderness or effusion, normal strength in all extremities, Normal digits & nails Neuro/Psych: Normal sensory exam, Normal motor strength, Judgement/insight normal (depressed mood), Mood normal (depressed mod), No focal deficits Misc: Normal back, No paraspinal tenderness ED Labs/Radiology/EKG Results - Lab Results Results: Laboratory Tests 01/03/18 01/03/18 01/03/18 21:40 21:40 21:40 WBC 5.9 RBC 4.34 Hgb 14.2 Hct 40.8 L MCV 93.9 MCH 32.7 H MCHC Differential 34.8 RDW 13.5 Plt Count 231 MPV 7.6 Neutrophils % 66.8 Lymphocytes % 22.8 Monocytes % 5.1 Eosinophils % 2.9 Basophils % 2.4 H Sodium 141 Potassium 4.1 Chloride 110 H Carbon Dioxide 21.1 Anion Gap 14.0 BUN 24 Creatinine 0.6 Est GFR ( Amer) TNP Est GFR (Non-Af Amer) TNP BUN/Creatinine Ratio 40.0 Glucose 101 Calcium 8.9 Total Bilirubin 0.5 AST 14 ALT 13 Alkaline Phosphatase 55 Total Protein 6.1 Albumin 3.8 Globulin 2.3 Albumin/Globulin Ratio 1.7 Triglycerides 102 Cholesterol 212 H LDL Cholesterol Direct 106 HDL Cholesterol 82 TSH 2.80 ED Assessment - Assessment General Assessment: medical decision making pt with depressed mood and behavior as reported by staff on ER sign in. no observed suicidal behaviors while in ER some depressed mood. pt in stable condition while in ER. no pain complaint, no vomiting, no fever. ED Septic Shock - . Is Septic Shock (SBP<90, OR Lactate>4 mmol\L) present?: No - <6hrs of presentation: Vital Signs: Vital Signs - 8 hr 01/03/18 01/03/18 01/03/18 21:15 23:12 23:13 Temp 98.3 F 98.0 F 98.0 F HR 70 71 71 RR 18 18 18 BP 107/52 122/68 122/68 O2 Sat % 95 98 98 Assessment of Lungs: Lung CTA bilateral Assessment of Heart: RRR, No Rub, No Murmur EKG Interpretation: NSR Capillary refill evaluation: Capillary refill < 2 secs Skin Exam: Warm, Dry, Good Turgur ED Reassessment (Disposition) - Reassessment Reassessment:: pt stable while in ER Reassessment Condition:: Unchanged - Diagnosis Diagnosis:: medical clearance for calin psyc - Patient Disposition Discharge/Transfer:: Acute Care w/in this hosp Admitted to:: [facility] Admitting Medical Physician:: Oleg Parker Admitting Psych Physician:: Javier Thomas Time:: 23:20
[2018-01-04 01:15] VITALS: BP 135/60
[2018-01-04] MEDS ORDERED: Magnesium Hydroxide (MOM) 30 mL UDC PO PRN ×2 (02:36→11:58)
[2018-01-04] MEDS ORDERED: Hydrocodone/APAP 5mg/325mg Tab PO PRN (02:45)
[2018-01-04] MEDS: Aspirin 81mg Chewable Tab PO SCH (08:56)
--- NOTE | 2018-01-04 13:33 | History and Physical ---
History of Present Illness - HPI Chief Complaint: depression HPI: This is a 82-year old male who is a [facility] admtited to the geropsych unit due to increase in depression. Vital Signs: Last Vital Signs Temp 98.0 F 01/04/18 05:18 Pulse 69 01/04/18 08:57 Resp 18 01/04/18 05:18 BP 153/63 01/04/18 08:57 Pulse Ox 91 01/04/18 05:18 Past Medical History Other History: HTN, Asthma/COPD, PUD/GERD Family Medical History - Family Member Mother History Unknown: Yes Ethnicity: Unknown Living Status: Unknown Hx Family Cancer: (Unknown) Hx Family Coronary Artery Disease: (Unknown) Hx Family Congestive Heart Failure: (Unknown) Hx Family Hypertension: (Unknown) Hx Family Stroke: (Unknown) Hx Family Diabetes: (Unknown) Hx Family Seizures: (Unknown) Hx Family Dementia: (Unknown) Hx Family AIDS: (Unknown) Hx Family COPD: (Unknown) Hx Family Hepatitis: (Unknown) Hx Family Psychiatric Problems: (Unknown) Hx Family Tuberculosis: (Unknown) Social History Smoke: No Alcohol: None Drugs: None Lives: Longterm - Medications Home Medications: Home Medication Medication Instructions Recorded Type Albuterol Sulfate [Ventolin Hfa] 2 puff IH Q6H 06/02/17 History Acetaminophen [Tylenol] 650 mg PO Q6H PRN tab 06/11/17 Rx Aspirin [Aspirin Chewable] 81 mg PO DAILY ctb 06/11/17 Rx Bisacodyl [Dulcolax 10 Mg Supp] 10 mg RC DAILY PRN sup 06/11/17 Rx Famotidine [Pepcid] 20 mg PO QAM tab 06/11/17 Rx Magnesium Hydroxide [Milk of 30 ml PO HS PRN udc 06/11/17 Rx Magnesia] amLODIPine Besylate [Norvasc] 5 mg PO DAILY tab 06/11/17 Rx Hydrocodone/APAP 5mg/325mg [[place] 1 tab PO Q6H PRN 01/03/18 History 5mg/325mg] - Allergies Allergies/Adverse Reactions: Allergies Allergy/AdvReac Type Severity Reaction Status Date / Time No Known Allergies Allergy Verified 01/03/18 21:34 Review of Systems - Review of Systems Constitutional: Report: No Significant Eyes: Report: No Significant ENT: Report: No Significant Respiratory: Report: No Significant Cardiovascular: Report: No Significant Neurological: Report: No Significant Physical Exam - Physical Exam HEENT: Report: Ears Nose Throat within normal limits Neck: Report: Within normal limits Cardiovascular Systems: Report: +s1/s2 noted, Regular, Rate and Rhythm Respiratory: Report: Breath Sounds are within normal limits, Clear to Auscultation of lung pérez Abdomen: Report: Non-tender to palpation Back: Report: Inspection of back is within normal limits. Skin: Report: Color of skin is within normal limits, Warm, Dry Neuro/Psych: Report: Mood affect is within normal limits - Lab Results All Lab Results last 24 hours: Laboratory Results - last 24 hr 01/03/18 01/03/18 01/03/18 21:40 21:40 21:40 WBC 5.9 RBC 4.34 Hgb 14.2 Hct 40.8 L MCV 93.9 MCH 32.7 H MCHC Differential 34.8 RDW 13.5 Plt Count 231 MPV 7.6 Neutrophils % 66.8 Lymphocytes % 22.8 Monocytes % 5.1 Eosinophils % 2.9 Basophils % 2.4 H Sodium 141 Potassium 4.1 Chloride 110 H Carbon Dioxide 21.1 Anion Gap 14.0 BUN 24 Creatinine 0.6 Est GFR ( Amer) TNP Est GFR (Non-Af Amer) TNP BUN/Creatinine Ratio 40.0 Glucose 101 Calcium 8.9 Total Bilirubin 0.5 AST 14 ALT 13 Alkaline Phosphatase 55 Total Protein 6.1 Albumin 3.8 Globulin 2.3 Albumin/Globulin Ratio 1.7 Triglycerides 102 Cholesterol 212 H LDL Cholesterol Direct 106 HDL Cholesterol 82 TSH 2.80 - Assessment Assessment: HTN Asthma COPD PUD GERD depression - Plan Plan: supplemental/nebs as needed fall precautions continue current tx
--- NOTE | 2018-01-05 03:15 | Psychiatric Evaluation ---
DATE OF SERVICE: 01/03/2018 IDENTIFYING DATA: The patient is an 82-year-old woman, resident of [facility]. JUSTIFICATION FOR HOSPITALIZATION: The patient is admitted on voluntary basis in view of her depression and agitation. CHIEF COMPLAINT: "I don't know." HISTORY OF PRESENT ILLNESS: This is one of multiple psychiatric hospitalizations for this patient who is reported to have been diagnosed with dementia and was admitted in the past for agitation and psychotic behavior and aggressive behavior and the patient at this time has been brought for acute depression. The patient is reported to have been not able to care for self. Sleep and appetite also noted to be very poor. PAST PSYCHIATRIC HISTORY: Please refer to the above. MEDICAL HISTORY: Physical examination is requested to be done by Dr. Thomas. SUBSTANCE ABUSE HISTORY: None. PHYSICAL OR SEXUAL ABUSE HISTORY: None. SOCIAL HISTORY: Resident of the long term facility. MENTAL STATUS EXAMINATION: The patient is an 83-year-old woman looking her stated age, superficially cooperative. Mood is noted to be depressed. The patient is getting easily agitated and frustrated. The patient denies any auditory hallucinations. Coping skills are noted to be very poor. Insight and judgment are noted to be impaired. Short and long-term memory are also noted to be very poor. The patient is not able to contract for safety at this time. DIAGNOSTIC IMPRESSION: AXIS I: Dementia and behavioral change, secondary trait. 1B: Depressive disorder, not otherwise specified. PLAN: To continue the patient with the supportive therapy, and adjust the medications and closely monitor the patient. Once the patient is going to be stable, the patient is going to be discharged back to the long term facility for further followup. [facility]# [id number]
[2018-01-05] MEDS ORDERED: Escitalopram Oxalate 5 mg Tab PO SCH (09:00)
[2018-01-05] MEDS: Aspirin 81mg Chewable Tab PO SCH (09:12)
--- NOTE | 2018-01-05 10:11 | Progress Notes ---
DATE: 01/05/2018 SUBJECTIVE: Staff was spoken to. The patient is interviewed. Mood is noted to be depressed. Affect is constricted. The patient is isolative and withdrawn. Coping skills are noted to be still poor. Insight and judgment are also noted to be very impaired. The patient is still not able to contract for safety. No side effects to the medications are noted. ASSESSMENT: The patient is still depressed. PLAN: To continue the patient with the supportive therapy and followup. [facility]# [id number]
--- NOTE | 2018-01-05 11:58 | Internal Medicine Prog Note ---
Internal Medicine Subjective - Subjective Service Date: 01/05/18 Patient seen and examined:: with staff Patient is:: awake, confused Per staff patient has:: tolerating meds Internal Medicine Objective - Results Result Diagrams: 01/03/18 21:40 01/03/18 21:40 Recent Labs: Laboratory Last Values WBC 5.9 Th/cmm (4.8-10.8) 01/03/18 21:40 RBC 4.34 Mil/cmm (3.80-5.20) 01/03/18 21:40 Hgb 14.2 gm/dL (12-16) 01/03/18 21:40 Hct 40.8 % (41.0-60) L 01/03/18 21:40 MCV 93.9 fl (81-100) 01/03/18 21:40 MCH 32.7 pg (27.0-31.0) H 01/03/18 21:40 MCHC Differential 34.8 pg (28.0-36.0) 01/03/18 21:40 RDW 13.5 % (11.5-20.0) 01/03/18 21:40 Plt Count 231 Th/cmm (150-400) 01/03/18 21:40 MPV 7.6 fl 01/03/18 21:40 Neutrophils % 66.8 % (40.0-80.0) 01/03/18 21:40 Lymphocytes % 22.8 % (20.0-50.0) 01/03/18 21:40 Monocytes % 5.1 % (2.0-10.0) 01/03/18 21:40 Eosinophils % 2.9 % (0.0-5.0) 01/03/18 21:40 Basophils % 2.4 % (0.0-2.0) H 01/03/18 21:40 Sodium 141 mEq/L (136-145) 01/03/18 21:40 Potassium 4.1 mEq/L (3.5-5.1) 01/03/18 21:40 Chloride 110 mEq/L (98-107) H 01/03/18 21:40 Carbon Dioxide 21.1 mEq/L (21.0-31.0) 01/03/18 21:40 Anion Gap 14.0 (7.0-16.0) 01/03/18 21:40 BUN 24 mg/dL (7-25) 01/03/18 21:40 Creatinine 0.6 mg/dL (0.6-1.2) 01/03/18 21:40 Est GFR ( Amer) TNP 01/03/18 21:40 Est GFR (Non-Af Amer) TNP 01/03/18 21:40 BUN/Creatinine Ratio 40.0 01/03/18 21:40 Glucose 101 mg/dL (70-105) 01/03/18 21:40 Calcium 8.9 mg/dL (8.6-10.3) 01/03/18 21:40 Total Bilirubin 0.5 mg/dL (0.3-1.0) 01/03/18 21:40 AST 14 U/L (13-39) 01/03/18 21:40 ALT 13 U/L (7-52) 01/03/18 21:40 Alkaline Phosphatase 55 U/L (34-104) 01/03/18 21:40 Total Protein 6.1 gm/dL (6.0-8.3) 01/03/18 21:40 Albumin 3.8 gm/dL (3.7-5.3) 01/03/18 21:40 Globulin 2.3 gm/dL 01/03/18 21:40 Albumin/Globulin Ratio 1.7 (1.0-1.8) 01/03/18 21:40 Triglycerides 102 mg/dL (<150) 01/03/18 21:40 Cholesterol 212 mg/dL (<200) H 01/03/18 21:40 LDL Cholesterol Direct 106 mg/dL (75-193) 01/03/18 21:40 HDL Cholesterol 82 mg/dL (23-92) 01/03/18 21:40 TSH 2.80 uIU/ml (0.34-5.60) 01/03/18 21:40 - Physical Exam Vitals and I&O: Vital Signs Temp 97.7 F 01/05/18 04:56 Pulse 70 01/05/18 09:12 Resp 18 01/05/18 04:56 BP 143/60 01/05/18 09:12 Pulse Ox 93 01/05/18 04:56 Intake & Output 01/04/18 01/05/18 01/05/18 18:59 06:59 18:59 Intake Total 480 Balance 480 Intake: Oral 480 Other: # Voids 2 # Bowel Movements 0 Active Medications: Current Medications Acetaminophen (Tylenol) 650 mg PO Q6H PRN PRN Reason: Pain (Mild)/TEMP Above 100F Stop: 03/05/18 11:57 Acetaminophen/Hydrocodone Bitart ([place] 5mg/325mg) 1 tab PO Q6H PRN PRN Reason: Pain (Severe) Stop: 03/05/18 02:44 Albuterol Sulfate (Albuterol 2.5mg/3ml Neb Ud) 2.5 mg HHN Q6HRT [facility] Stop: 03/05/18 12:59 Amlodipine Besylate (Norvasc) 5 mg PO DAILY [facility] Stop: 03/05/18 08:59 Last Admin: 01/05/18 09:12 Dose: 5 mg Aspirin (Aspirin Chewable) 81 mg PO DAILY [facility] Stop: 03/05/18 08:59 Last Admin: 01/05/18 09:12 Dose: 81 mg Bisacodyl (Dulcolax 10 Mg Supp) 10 mg RC DAILY PRN PRN Reason: Constipation Stop: 03/05/18 02:44 Escitalopram Oxalate (Lexapro) 5 mg PO DAILY [facility]; Protocol Stop: 03/06/18 08:59 Famotidine (Pepcid) 20 mg PO QAM [facility] Stop: 03/05/18 08:59 Last Admin: 01/05/18 09:12 Dose: 20 mg Lorazepam (Ativan) 0.5 mg PO Q4HR PRN; Protocol PRN Reason: Anxiety Stop: 02/03/18 02:35 Magnesium Hydroxide (Milk Of Magnesia) 30 ml PO HS PRN PRN Reason: Constipation Magnesium Hydroxide (Milk Of Magnesia) 30 ml PO HS PRN PRN Reason: Constipation Stop: 03/05/18 11:57 Zolpidem Tartrate (Ambien) 5 mg PO HS PRN PRN Reason: Insomnia Stop: 03/05/18 02:35 General: weak, alert, demented HEENT: NC/AT, PERRLA Neck: Supple Lungs: CTAB Cardiovascular: RRR, Normal S1, Normal S2, without murmur Abdomen: soft, non-tender, non-distended Extremities: excoriation Neurological: alert, unable to follow command Internal Medicine Assmt/Plan - Assessment Assessment: HTN Asthma COPD PUD GERD depression - Plan Plan: supplemental/nebs as needed fall precautions continue current tx
[2018-01-06] MEDS: Aspirin 81mg Chewable Tab PO SCH (09:11)
--- NOTE | 2018-01-06 11:25 | Internal Medicine Prog Note ---
Internal Medicine Subjective - Subjective Service Date: 01/06/18 Patient is:: awake, confused Per staff patient has:: tolerating meds Internal Medicine Objective - Results Result Diagrams: 01/03/18 21:40 01/03/18 21:40 Recent Labs: Laboratory Last Values WBC 5.9 Th/cmm (4.8-10.8) 01/03/18 21:40 RBC 4.34 Mil/cmm (3.80-5.20) 01/03/18 21:40 Hgb 14.2 gm/dL (12-16) 01/03/18 21:40 Hct 40.8 % (41.0-60) L 01/03/18 21:40 MCV 93.9 fl (81-100) 01/03/18 21:40 MCH 32.7 pg (27.0-31.0) H 01/03/18 21:40 MCHC Differential 34.8 pg (28.0-36.0) 01/03/18 21:40 RDW 13.5 % (11.5-20.0) 01/03/18 21:40 Plt Count 231 Th/cmm (150-400) 01/03/18 21:40 MPV 7.6 fl 01/03/18 21:40 Neutrophils % 66.8 % (40.0-80.0) 01/03/18 21:40 Lymphocytes % 22.8 % (20.0-50.0) 01/03/18 21:40 Monocytes % 5.1 % (2.0-10.0) 01/03/18 21:40 Eosinophils % 2.9 % (0.0-5.0) 01/03/18 21:40 Basophils % 2.4 % (0.0-2.0) H 01/03/18 21:40 Sodium 141 mEq/L (136-145) 01/03/18 21:40 Potassium 4.1 mEq/L (3.5-5.1) 01/03/18 21:40 Chloride 110 mEq/L (98-107) H 01/03/18 21:40 Carbon Dioxide 21.1 mEq/L (21.0-31.0) 01/03/18 21:40 Anion Gap 14.0 (7.0-16.0) 01/03/18 21:40 BUN 24 mg/dL (7-25) 01/03/18 21:40 Creatinine 0.6 mg/dL (0.6-1.2) 01/03/18 21:40 Est GFR ( Amer) TNP 01/03/18 21:40 Est GFR (Non-Af Amer) TNP 01/03/18 21:40 BUN/Creatinine Ratio 40.0 01/03/18 21:40 Glucose 101 mg/dL (70-105) 01/03/18 21:40 Calcium 8.9 mg/dL (8.6-10.3) 01/03/18 21:40 Total Bilirubin 0.5 mg/dL (0.3-1.0) 01/03/18 21:40 AST 14 U/L (13-39) 01/03/18 21:40 ALT 13 U/L (7-52) 01/03/18 21:40 Alkaline Phosphatase 55 U/L (34-104) 01/03/18 21:40 Total Protein 6.1 gm/dL (6.0-8.3) 01/03/18 21:40 Albumin 3.8 gm/dL (3.7-5.3) 01/03/18 21:40 Globulin 2.3 gm/dL 01/03/18 21:40 Albumin/Globulin Ratio 1.7 (1.0-1.8) 01/03/18 21:40 Triglycerides 102 mg/dL (<150) 01/03/18 21:40 Cholesterol 212 mg/dL (<200) H 01/03/18 21:40 LDL Cholesterol Direct 106 mg/dL (75-193) 01/03/18 21:40 HDL Cholesterol 82 mg/dL (23-92) 01/03/18 21:40 TSH 2.80 uIU/ml (0.34-5.60) 01/03/18 21:40 - Physical Exam Vitals and I&O: Vital Signs Temp 98 F 01/06/18 05:43 Pulse 72 01/06/18 09:11 Resp 20 01/06/18 11:00 BP 140/68 01/06/18 09:11 Pulse Ox 94 01/06/18 05:43 Intake & Output 01/05/18 01/06/18 01/06/18 18:59 06:59 18:59 Intake Total 240 120 Balance 240 120 Intake: Oral 240 120 Other: # Voids 2 3 # Bowel Movements 0 Active Medications: Current Medications Acetaminophen (Tylenol) 650 mg PO Q6H PRN PRN Reason: Pain (Mild)/TEMP Above 100F Stop: 03/05/18 11:57 Acetaminophen/Hydrocodone Bitart ([place] 5mg/325mg) 1 tab PO Q6H PRN PRN Reason: Pain (Severe) Stop: 03/05/18 02:44 Albuterol Sulfate (Albuterol 2.5mg/3ml Neb Ud) 2.5 mg HHN Q6HRT [facility] Stop: 03/05/18 12:59 Amlodipine Besylate (Norvasc) 5 mg PO DAILY [facility] Stop: 03/05/18 08:59 Last Admin: 01/06/18 09:11 Dose: 5 mg Aspirin (Aspirin Chewable) 81 mg PO DAILY [facility] Stop: 03/05/18 08:59 Last Admin: 01/06/18 09:11 Dose: 81 mg Bisacodyl (Dulcolax 10 Mg Supp) 10 mg RC DAILY PRN PRN Reason: Constipation Stop: 03/05/18 02:44 Escitalopram Oxalate (Lexapro) 10 mg PO DAILY [facility]; Protocol Stop: 03/08/18 08:59 Famotidine (Pepcid) 20 mg PO QAM [facility] Stop: 03/05/18 08:59 Last Admin: 01/06/18 09:11 Dose: 20 mg Lorazepam (Ativan) 0.5 mg PO Q4HR PRN; Protocol PRN Reason: Anxiety Stop: 02/03/18 02:35 Magnesium Hydroxide (Milk Of Magnesia) 30 ml PO HS PRN PRN Reason: Constipation Magnesium Hydroxide (Milk Of Magnesia) 30 ml PO HS PRN PRN Reason: Constipation Stop: 03/05/18 11:57 Zolpidem Tartrate (Ambien) 5 mg PO HS PRN PRN Reason: Insomnia Stop: 03/05/18 02:35 General: weak, alert, demented HEENT: NC/AT, PERRLA Neck: Supple Lungs: CTAB Cardiovascular: RRR, Normal S1, Normal S2, without murmur Abdomen: soft, non-tender, non-distended Extremities: excoriation Neurological: alert, unable to follow command Internal Medicine Assmt/Plan - Assessment Assessment: HTN Asthma COPD PUD GERD depression - Plan Plan: supplemental/nebs as needed fall precautions continue current tx
--- NOTE | 2018-01-06 11:33 | Progress Notes ---
DATE: 01/06/2018 SUBJECTIVE: Staff was spoken to. The patient is interviewed. Mood is noted to be depressed. Affect is constricted. The patient's insight and judgment are noted to be still impaired. Impulse control is limited. The patient has been having difficult time to cope with the stress. No side effects to the medications are noted. ASSESSMENT: The patient is still depressed. PLAN: To continue the patient with the supportive therapy. I encouraged the patient to verbalize the concerns rather than to act out. [facility]# [id number]
--- NOTE | 2018-01-06 15:12 | Consultation ---
DATE OF CONSULTATION: 01/05/2018 REFERRING PHYSICIAN: Oleg Parker MD TYPE OF CONSULTATION: Psychology. HISTORY OF PRESENT ILLNESS: The patient is an 82-year-old female. The patient is a resident of [facility]. The following is by record review and by the patient's self-report. The patient is being admitted due to increased depression and agitation. This is one of multiple hospitalizations for this patient. The patient is known to this com writer from previous hospitalizations. The staff at the patient's facility report that she has been becoming more easily agitated and aggressive along with increased psychotic symptoms. The patient states that she does not know why she is being hospitalized. She denied any suicidal ideation, plan or intention. PAST MEDICAL HISTORY: Please see history and physical by Dr. Thomas. PAST PSYCHIATRIC HISTORY: The patient has a history of dementia with behavioral disturbance, including depression. The patient is under the care of a psychiatrist at her placement. SUBSTANCE ABUSE HISTORY: The patient denied any history of alcohol, tobacco or illicit drug use. PSYCHOSOCIAL HISTORY: The patient did not answer questions about occupational or educational history or methodist affiliation. She did not answer questions about history of physical or sexual abuse or current legal problems. The patient did not answer questions about support including any family relationships or involvement. MENTAL STATUS EXAMINATION: The patient appears to be her stated age. The patient's attitude is superficially cooperative. Eye contact is fair to poor. Speech is slow and delayed with intermittent loud outbursts. Mood is depressed. Affect is constricted. The patient's behavior is easily agitated and frustrated during the clinical interview. The patient's thought process shows to be confused. The patient denied any auditory or visual hallucinations or any delusions. The patient's behavior has been poorly redirectable according to the staff on the unit. Impulse control is poor. Concentration is poor. Sensorium is alert and oriented to person and place. The patient did not participate in the memory assessment, however immediate memory and short term memory appeared to be impaired. The patient did not participate in the interpretation of proverbs. Insight is poor. Judgment is compromised. DIAGNOSTIC IMPRESSION: [place] I: 1. History of dementia with behavioral disturbance. 2. Depressive disorder, not otherwise specified. [place] II: Deferred. [place] III: Per Dr. Thomas. TREATMENT PLAN: The patient has been seen by Dr. Parker for psychiatric evaluation and for the management of the patient's psychotropic medications. We will provide supportive psychotherapy to include reality orientation, differentiation and integration. We will provide daily opportunities for the patient to verbally contract for safety. We will encourage the patient to be able to demonstrate emotional and self-regulation prior to her discharge. We will provide coping strategies for phase of life issues to assist with reducing her depression. We will provide motivational enhancement for the patient to become compliant and stay compliant with all aspects of her care and treatment. Thank you, Dr. Parker, for this consult and the opportunity to participate in this patient's care. JOB# [id number] CALI
[2018-01-07] MEDS: Escitalopram Oxalate 5 mg Tab PO SCH (09:02)
[2018-01-07] MEDS: Aspirin 81mg Chewable Tab PO SCH (09:02)
--- NOTE | 2018-01-07 12:13 | Internal Medicine Prog Note ---
Internal Medicine Subjective - Subjective Service Date: 01/07/18 Patient is:: awake, confused Per staff patient has:: tolerating meds Internal Medicine Objective - Results Result Diagrams: 01/03/18 21:40 01/03/18 21:40 Recent Labs: Laboratory Last Values WBC 5.9 Th/cmm (4.8-10.8) 01/03/18 21:40 RBC 4.34 Mil/cmm (3.80-5.20) 01/03/18 21:40 Hgb 14.2 gm/dL (12-16) 01/03/18 21:40 Hct 40.8 % (41.0-60) L 01/03/18 21:40 MCV 93.9 fl (81-100) 01/03/18 21:40 MCH 32.7 pg (27.0-31.0) H 01/03/18 21:40 MCHC Differential 34.8 pg (28.0-36.0) 01/03/18 21:40 RDW 13.5 % (11.5-20.0) 01/03/18 21:40 Plt Count 231 Th/cmm (150-400) 01/03/18 21:40 MPV 7.6 fl 01/03/18 21:40 Neutrophils % 66.8 % (40.0-80.0) 01/03/18 21:40 Lymphocytes % 22.8 % (20.0-50.0) 01/03/18 21:40 Monocytes % 5.1 % (2.0-10.0) 01/03/18 21:40 Eosinophils % 2.9 % (0.0-5.0) 01/03/18 21:40 Basophils % 2.4 % (0.0-2.0) H 01/03/18 21:40 Sodium 141 mEq/L (136-145) 01/03/18 21:40 Potassium 4.1 mEq/L (3.5-5.1) 01/03/18 21:40 Chloride 110 mEq/L (98-107) H 01/03/18 21:40 Carbon Dioxide 21.1 mEq/L (21.0-31.0) 01/03/18 21:40 Anion Gap 14.0 (7.0-16.0) 01/03/18 21:40 BUN 24 mg/dL (7-25) 01/03/18 21:40 Creatinine 0.6 mg/dL (0.6-1.2) 01/03/18 21:40 Est GFR ( Amer) TNP 01/03/18 21:40 Est GFR (Non-Af Amer) TNP 01/03/18 21:40 BUN/Creatinine Ratio 40.0 01/03/18 21:40 Glucose 101 mg/dL (70-105) 01/03/18 21:40 Calcium 8.9 mg/dL (8.6-10.3) 01/03/18 21:40 Total Bilirubin 0.5 mg/dL (0.3-1.0) 01/03/18 21:40 AST 14 U/L (13-39) 01/03/18 21:40 ALT 13 U/L (7-52) 01/03/18 21:40 Alkaline Phosphatase 55 U/L (34-104) 01/03/18 21:40 Total Protein 6.1 gm/dL (6.0-8.3) 01/03/18 21:40 Albumin 3.8 gm/dL (3.7-5.3) 01/03/18 21:40 Globulin 2.3 gm/dL 01/03/18 21:40 Albumin/Globulin Ratio 1.7 (1.0-1.8) 01/03/18 21:40 Triglycerides 102 mg/dL (<150) 01/03/18 21:40 Cholesterol 212 mg/dL (<200) H 01/03/18 21:40 LDL Cholesterol Direct 106 mg/dL (75-193) 01/03/18 21:40 HDL Cholesterol 82 mg/dL (23-92) 01/03/18 21:40 TSH 2.80 uIU/ml (0.34-5.60) 01/03/18 21:40 - Physical Exam Vitals and I&O: Vital Signs Temp 98.1 F 01/07/18 05:58 Pulse 60 01/07/18 09:02 Resp 19 01/07/18 05:58 BP 118/53 01/07/18 09:02 Pulse Ox 97 01/07/18 05:58 Intake & Output 01/06/18 01/07/18 01/07/18 18:59 06:59 18:59 Intake Total 1300 240 Balance 1300 240 Intake: Oral 1300 240 Other: # Voids 3 1 # Bowel Movements 0 Active Medications: Current Medications Acetaminophen (Tylenol) 650 mg PO Q6H PRN PRN Reason: Pain (Mild)/TEMP Above 100F Stop: 03/05/18 11:57 Acetaminophen/Hydrocodone Bitart ([place] 5mg/325mg) 1 tab PO Q6H PRN PRN Reason: Pain (Severe) Stop: 03/05/18 02:44 Albuterol Sulfate (Albuterol 2.5mg/3ml Neb Ud) [address] [facility] Stop: 03/05/18 12:59 Amlodipine Besylate (Norvasc) [address] [facility] Stop: 03/05/18 08:59 Last Admin: 01/07/18 09:02 Dose: 5 mg Aspirin (Aspirin Chewable) [address] [facility] Stop: 03/05/18 08:59 Last Admin: 01/07/18 09:02 Dose: 81 mg Bisacodyl (Dulcolax 10 Mg Supp) 10 mg RC DAILY PRN PRN Reason: Constipation Stop: 03/05/18 02:44 Escitalopram Oxalate (Lexapro) [address] [facility]; Protocol Stop: 03/08/18 08:59 Last Admin: 01/07/18 09:02 Dose: 10 mg Famotidine (Pepcid) [address] [facility] Stop: 03/05/18 08:59 Last Admin: 01/07/18 09:03 Dose: 20 mg Lorazepam (Ativan) 0.5 mg PO Q4HR PRN; Protocol PRN Reason: Anxiety Stop: 02/03/18 02:35 Magnesium Hydroxide (Milk Of Magnesia) 30 ml PO HS PRN PRN Reason: Constipation Magnesium Hydroxide (Milk Of Magnesia) 30 ml PO HS PRN PRN Reason: Constipation Stop: 03/05/18 11:57 Zolpidem Tartrate (Ambien) 5 mg PO HS PRN PRN Reason: Insomnia Stop: 03/05/18 02:35 Last Admin: 01/06/18 20:36 Dose: 5 mg General: weak, alert, demented HEENT: NC/AT, PERRLA Neck: Supple Lungs: CTAB Cardiovascular: RRR, Normal S1, Normal S2, without murmur Abdomen: soft, non-tender, non-distended Extremities: excoriation Neurological: alert, unable to follow command Internal Medicine Assmt/Plan - Assessment Assessment: HTN Asthma COPD PUD GERD depression - Plan Plan: supplemental/nebs as needed fall precautions continue current tx Nutritional Asmnt/Malnutr-PDOC - Dietary Evaluation Malnutrition Findings (Please click <Entered> for more info): Nutritional Asmnt/Malnutrition Start: 01/06/18 12: 28 Text: Status: Complete Freq: Protocol: Document 01/06/18 12:30 JALIL (Rec: 01/06/18 12:41 DYBRISA [email or web address]) Nutritional Asmnt/Malnutrition Patient General Information Nutritional Screening Moderate Risk Diagnosis psychosis/depression Pertinent Medical Hx/Surgical Hx HTN, asthma/COPD, PUD/GERD, depression Subjective Information Pt resting in bed at time of visit. Pt attempted to answer RD's questions, but unable to speak words or sentences. Per [employer], pt's confused and has difficulty speaking clearly, but able to self feed and eats well. Nursing noted PO intake : 75%. Current Diet Order/ Nutrition Support [facility] soft chopped, nectar thick liquids Pertinent Medications dulcolax, pepcid, MOM Pertinent Labs 01/03: Cl 110, cholesterol 212 Nutritional Hx/Data Height 5 ft 3 in Height (Calculated Centimeters) 160.0 Current Weight (lbs) 105 lb Weight (Calculated Kilograms) 47.6 Weight (Calculated Grams) 46056.2 [place] Body Weight 115 lb Body Mass Index (BMI) 18.6 Weight Status Approriate GI Symptoms GI Symptoms None Last BM none noted Difficult in: None Food Allergies No Skin Integrity/Comment: matthew, aníbal 18 Current %PO Good (75-100%) Estimated Nutritional Goals BEE in Kcals: Using Current wt Calories/Kcals/Kg 25-30 Kcals Calculated 4102-1240 Protein: Using Current wt Protein g/k.0 Protein Calculated 48 g Fluid: ml 5717-5422 (1 ml/kcal) Nutritional Problem No current Nutrition Prob Problem no nutrition dx at this time Malnutrition Alert Is there a minimum of two criteria No selected? Query Text:Check all the applicable criteria. A minimum of two criteria are recommended for diagnosis of either severe or non-severe malnutrition. Malnutrition Related to Morbid Obesity Malnutrition related to morbid obesity No Intervention/Recommendation Comments 1. Continue with mec soft chopped, nectar thick liquid diet as ordered. Assist w/ meals as needed 2. Monitor PO intake, wt, labs and skin integrity 3. F/U as low risk in 7 days, 01/13 Expected Outcomes/Goals Expected Outcomes/Goals 1. PO intake to continue meeting at least 75% of all meals 2. Wt stability, skin to remain intact, and nutrition related labs to approach normal limits Reviewed by NASH Barnes RD
--- NOTE | 2018-01-08 03:17 | Progress Notes ---
DATE: 01/07/2018 SUBJECTIVE: Staff was spoken to. The patient is interviewed. Mood is noted to be irritable. Affect is constricted. The patient has been pushing the staff away when they are trying to feed her. The patient has no insight into her illness. Coping skills are noted to be very poor. The patient has been currently on 10 mg of the Lexapro and has been able to tolerate the medication. ASSESSMENT: The patient is still depressed. PLAN: To continue the patient with the supportive therapy. I encouraged the patient to verbalize the concerns rather than to act out. JOB# [id number]
[2018-01-08] MEDS: Aspirin 81mg Chewable Tab PO SCH (09:26)
[2018-01-08] MEDS: Escitalopram Oxalate 5 mg Tab PO SCH (09:26)
--- NOTE | 2018-01-08 12:37 | Internal Medicine Prog Note ---
Internal Medicine Subjective - Subjective Service Date: 01/08/18 Patient is:: awake, confused Per staff patient has:: tolerating meds Internal Medicine Objective - Results Result Diagrams: 01/03/18 21:40 01/03/18 21:40 Recent Labs: Laboratory Last Values WBC 5.9 Th/cmm (4.8-10.8) 01/03/18 21:40 RBC 4.34 Mil/cmm (3.80-5.20) 01/03/18 21:40 Hgb 14.2 gm/dL (12-16) 01/03/18 21:40 Hct 40.8 % (41.0-60) L 01/03/18 21:40 MCV 93.9 fl (81-100) 01/03/18 21:40 MCH 32.7 pg (27.0-31.0) H 01/03/18 21:40 MCHC Differential 34.8 pg (28.0-36.0) 01/03/18 21:40 RDW 13.5 % (11.5-20.0) 01/03/18 21:40 Plt Count 231 Th/cmm (150-400) 01/03/18 21:40 MPV 7.6 fl 01/03/18 21:40 Neutrophils % 66.8 % (40.0-80.0) 01/03/18 21:40 Lymphocytes % 22.8 % (20.0-50.0) 01/03/18 21:40 Monocytes % 5.1 % (2.0-10.0) 01/03/18 21:40 Eosinophils % 2.9 % (0.0-5.0) 01/03/18 21:40 Basophils % 2.4 % (0.0-2.0) H 01/03/18 21:40 Sodium 141 mEq/L (136-145) 01/03/18 21:40 Potassium 4.1 mEq/L (3.5-5.1) 01/03/18 21:40 Chloride 110 mEq/L (98-107) H 01/03/18 21:40 Carbon Dioxide 21.1 mEq/L (21.0-31.0) 01/03/18 21:40 Anion Gap 14.0 (7.0-16.0) 01/03/18 21:40 BUN 24 mg/dL (7-25) 01/03/18 21:40 Creatinine 0.6 mg/dL (0.6-1.2) 01/03/18 21:40 Est GFR ( Amer) TNP 01/03/18 21:40 Est GFR (Non-Af Amer) TNP 01/03/18 21:40 BUN/Creatinine Ratio 40.0 01/03/18 21:40 Glucose 101 mg/dL (70-105) 01/03/18 21:40 Calcium 8.9 mg/dL (8.6-10.3) 01/03/18 21:40 Total Bilirubin 0.5 mg/dL (0.3-1.0) 01/03/18 21:40 AST 14 U/L (13-39) 01/03/18 21:40 ALT 13 U/L (7-52) 01/03/18 21:40 Alkaline Phosphatase 55 U/L (34-104) 01/03/18 21:40 Total Protein 6.1 gm/dL (6.0-8.3) 01/03/18 21:40 Albumin 3.8 gm/dL (3.7-5.3) 01/03/18 21:40 Globulin 2.3 gm/dL 01/03/18 21:40 Albumin/Globulin Ratio 1.7 (1.0-1.8) 01/03/18 21:40 Triglycerides 102 mg/dL (<150) 01/03/18 21:40 Cholesterol 212 mg/dL (<200) H 01/03/18 21:40 LDL Cholesterol Direct 106 mg/dL (75-193) 01/03/18 21:40 HDL Cholesterol 82 mg/dL (23-92) 01/03/18 21:40 TSH 2.80 uIU/ml (0.34-5.60) 01/03/18 21:40 RPR NONREACTIVE (NONREACTIVE) 01/03/18 21:40 - Physical Exam Vitals and I&O: Vital Signs Temp 97.6 F 01/07/18 20:00 Pulse 72 01/08/18 09:26 Resp 18 01/08/18 06:25 BP 124/76 01/08/18 09:26 Pulse Ox 93 01/08/18 06:25 Intake & Output 01/07/18 01/08/18 01/08/18 18:59 06:59 18:59 Intake Total 960 Balance 960 Intake: Oral 960 Other: # Voids 3 # Bowel Movements 1 Active Medications: Current Medications Acetaminophen (Tylenol) 650 mg PO Q6H PRN PRN Reason: Pain (Mild)/TEMP Above 100F Stop: 03/05/18 11:57 Acetaminophen/Hydrocodone Bitart ([place] 5mg/325mg) 1 tab PO Q6H PRN PRN Reason: Pain (Severe) Stop: 03/05/18 02:44 Albuterol Sulfate (Albuterol 2.5mg/3ml Neb Ud) 2.5 mg HHN Q6HRT SIMON Stop: 03/05/18 12:59 Amlodipine Besylate (Norvasc) 5 mg PO DAILY [facility] Stop: 03/05/18 08:59 Last Admin: 01/08/18 09:26 Dose: 5 mg Aspirin (Aspirin Chewable) 81 mg PO DAILY SIMON Stop: 03/05/18 08:59 Last Admin: 01/08/18 09:26 Dose: 81 mg Bisacodyl (Dulcolax 10 Mg Supp) 10 mg RC DAILY PRN PRN Reason: Constipation Stop: 03/05/18 02:44 Escitalopram Oxalate (Lexapro) 10 mg PO DAILY [facility]; Protocol Stop: 03/08/18 08:59 Last Admin: 01/08/18 09:26 Dose: 10 mg Famotidine (Pepcid) 20 mg PO QAM [facility] Stop: 03/05/18 08:59 Last Admin: 01/08/18 09:26 Dose: 20 mg Lorazepam (Ativan) 0.5 mg PO Q4HR PRN; Protocol PRN Reason: Anxiety Stop: 02/03/18 02:35 Magnesium Hydroxide (Milk Of Magnesia) 30 ml PO HS PRN PRN Reason: Constipation Magnesium Hydroxide (Milk Of Magnesia) 30 ml PO HS PRN PRN Reason: Constipation Stop: 03/05/18 11:57 Zolpidem Tartrate (Ambien) 5 mg PO HS PRN PRN Reason: Insomnia Stop: 03/05/18 02:35 Last Admin: 01/07/18 20:39 Dose: 5 mg General: weak, alert, demented HEENT: NC/AT, PERRLA Neck: Supple Lungs: CTAB Cardiovascular: RRR, Normal S1, Normal S2, without murmur Abdomen: soft, non-tender, non-distended Extremities: excoriation Neurological: alert, unable to follow command Internal Medicine Assmt/Plan - Assessment Assessment: HTN Asthma COPD PUD GERD depression - Plan Plan: supplemental/nebs as needed fall precautions continue current tx Nutritional Asmnt/Malnutr-PDOC - Dietary Evaluation Malnutrition Findings (Please click <Entered> for more info): Nutritional Asmnt/Malnutrition Start: 01/06/18 12: 28 Text: Status: Complete Freq: Protocol: Document 01/06/18 12:30 JALIL (Rec: 01/06/18 12:41 DYBRISA [email or web address]) Nutritional Asmnt/Malnutrition Patient General Information Nutritional Screening Moderate Risk Diagnosis psychosis/depression Pertinent Medical Hx/Surgical Hx HTN, asthma/COPD, PUD/GERD, depression Subjective Information Pt resting in bed at time of visit. Pt attempted to answer RD's questions, but unable to speak words or sentences. Per PERSONNEL TECHNICIAN, pt's confused and has difficulty speaking clearly, but able to self feed and eats well. Nursing noted PO intake : 75%. Current Diet Order/ Nutrition Support [facility] soft chopped, nectar thick liquids Pertinent Medications dulcolax, pepcid, MOM Pertinent Labs 01/03: Cl 110, cholesterol 212 Nutritional Hx/Data Height 5 ft 3 in Height (Calculated Centimeters) 160.0 Current Weight (lbs) 105 lb Weight (Calculated Kilograms) 47.6 Weight (Calculated Grams) 57806.2 [place] Body Weight 115 lb Body Mass Index (BMI) 18.6 Weight Status Approriate GI Symptoms GI Symptoms None Last BM none noted Difficult in: None Food Allergies No Skin Integrity/Comment: aníbal castro 18 Current %PO Good (75-100%) Estimated Nutritional Goals BEE in Kcals: Using Current wt Calories/Kcals/Kg 25-30 Kcals Calculated 2658-0456 Protein: Using Current wt Protein g/k.0 Protein Calculated 48 g Fluid: ml 7561-2492 (1 ml/kcal) Nutritional Problem No current Nutrition Prob Problem no nutrition dx at this time Malnutrition Alert Is there a minimum of two criteria No selected? Query Text:Check all the applicable criteria. A minimum of two criteria are recommended for diagnosis of either severe or non-severe malnutrition. Malnutrition Related to Morbid Obesity Malnutrition related to morbid obesity No Intervention/Recommendation Comments 1. Continue with [facility] soft chopped, nectar thick liquid diet as ordered. Assist w/ meals as needed 2. Monitor PO intake, wt, labs and skin integrity 3. F/U as low risk in 7 days, 01/13 Expected Outcomes/Goals Expected Outcomes/Goals 1. PO intake to continue meeting at least 75% of all meals 2. Wt stability, skin to remain intact, and nutrition related labs to approach normal limits Reviewed by NASH Barnes RD
[2018-01-08] MEDS: Albuterol Nebulizer 2.5mg/3mL HHN SCH ×3 (13:52→19:44)
--- NOTE | 2018-01-08 14:15 | Progress Notes ---
DATE: 01/08/2018 SUBJECTIVE: Staff was spoken to. The patient is interviewed. Mood is noted to be irritable. Affect is constricted. Coping skills at this time are noted to be very poor. The patient is not making , but easily getting irritable and angry. ASSESSMENT: The patient is still impulsive. PLAN: To continue the patient with the supportive therapy and encouraged the patient to verbalize the consent rather than to act out. [facility]# [id number]
[2018-01-09] MEDS: Albuterol Nebulizer 2.5mg/3mL HHN SCH ×4 (01:48→18:52)
[2018-01-09] MEDS: Escitalopram Oxalate 5 mg Tab PO SCH (08:47)
[2018-01-09] MEDS: Aspirin 81mg Chewable Tab PO SCH (08:47)
--- NOTE | 2018-01-09 14:57 | Internal Medicine Prog Note ---
Internal Medicine Subjective - Subjective Service Date: 01/09/18 Patient is:: awake, confused Per staff patient has:: tolerating meds Internal Medicine Objective - Results Result Diagrams: 01/03/18 21:40 01/03/18 21:40 Recent Labs: Laboratory Last Values WBC 5.9 Th/cmm (4.8-10.8) 01/03/18 21:40 RBC 4.34 Mil/cmm (3.80-5.20) 01/03/18 21:40 Hgb 14.2 gm/dL (12-16) 01/03/18 21:40 Hct 40.8 % (41.0-60) L 01/03/18 21:40 MCV 93.9 fl (81-100) 01/03/18 21:40 MCH 32.7 pg (27.0-31.0) H 01/03/18 21:40 MCHC Differential 34.8 pg (28.0-36.0) 01/03/18 21:40 RDW 13.5 % (11.5-20.0) 01/03/18 21:40 Plt Count 231 Th/cmm (150-400) 01/03/18 21:40 MPV 7.6 fl 01/03/18 21:40 Neutrophils % 66.8 % (40.0-80.0) 01/03/18 21:40 Lymphocytes % 22.8 % (20.0-50.0) 01/03/18 21:40 Monocytes % 5.1 % (2.0-10.0) 01/03/18 21:40 Eosinophils % 2.9 % (0.0-5.0) 01/03/18 21:40 Basophils % 2.4 % (0.0-2.0) H 01/03/18 21:40 Sodium 141 mEq/L (136-145) 01/03/18 21:40 Potassium 4.1 mEq/L (3.5-5.1) 01/03/18 21:40 Chloride 110 mEq/L (98-107) H 01/03/18 21:40 Carbon Dioxide 21.1 mEq/L (21.0-31.0) 01/03/18 21:40 Anion Gap 14.0 (7.0-16.0) 01/03/18 21:40 BUN 24 mg/dL (7-25) 01/03/18 21:40 Creatinine 0.6 mg/dL (0.6-1.2) 01/03/18 21:40 Est GFR ( Amer) TNP 01/03/18 21:40 Est GFR (Non-Af Amer) TNP 01/03/18 21:40 BUN/Creatinine Ratio 40.0 01/03/18 21:40 Glucose 101 mg/dL (70-105) 01/03/18 21:40 Calcium 8.9 mg/dL (8.6-10.3) 01/03/18 21:40 Total Bilirubin 0.5 mg/dL (0.3-1.0) 01/03/18 21:40 AST 14 U/L (13-39) 01/03/18 21:40 ALT 13 U/L (7-52) 01/03/18 21:40 Alkaline Phosphatase 55 U/L (34-104) 01/03/18 21:40 Total Protein 6.1 gm/dL (6.0-8.3) 01/03/18 21:40 Albumin 3.8 gm/dL (3.7-5.3) 01/03/18 21:40 Globulin 2.3 gm/dL 01/03/18 21:40 Albumin/Globulin Ratio 1.7 (1.0-1.8) 01/03/18 21:40 Triglycerides 102 mg/dL (<150) 01/03/18 21:40 Cholesterol 212 mg/dL (<200) H 01/03/18 21:40 LDL Cholesterol Direct 106 mg/dL (75-193) 01/03/18 21:40 HDL Cholesterol 82 mg/dL (23-92) 01/03/18 21:40 TSH 2.80 uIU/ml (0.34-5.60) 01/03/18 21:40 RPR NONREACTIVE (NONREACTIVE) 01/03/18 21:40 - Physical Exam Vitals and I&O: Vital Signs Temp 97.5 F 01/09/18 14:22 Pulse 60 01/09/18 14:22 Resp 18 01/09/18 14:22 BP 115/48 01/09/18 14:22 Pulse Ox 92 01/09/18 14:22 Intake & Output 01/08/18 01/09/18 01/09/18 19:59 06:59 18:59 Intake Total Balance Intake: Oral Other: # Voids # Bowel Movements Active Medications: Current Medications Acetaminophen (Tylenol) 650 mg PO Q6H PRN PRN Reason: Pain (Mild)/TEMP Above 100F Stop: 03/05/18 11:57 Acetaminophen/Hydrocodone Bitart ([place] 5mg/325mg) 1 tab PO Q6H PRN PRN Reason: Pain (Severe) Stop: 03/05/18 02:44 Albuterol Sulfate (Albuterol 2.5mg/3ml Neb Ud) 2.5 mg HHN Q6HRT SIMON Stop: 03/05/18 12:59 Last Admin: 01/09/18 12:24 Dose: 2.5 mg Amlodipine Besylate (Norvasc) 5 mg PO DAILY [facility] Stop: 03/05/18 08:59 Last Admin: 01/09/18 08:47 Dose: Not Given Aspirin (Aspirin Chewable) 81 mg PO DAILY [facility] Stop: 03/05/18 08:59 Last Admin: 01/09/18 08:47 Dose: 81 mg Bisacodyl (Dulcolax 10 Mg Supp) 10 mg RC DAILY PRN PRN Reason: Constipation Stop: 03/05/18 02:44 Escitalopram Oxalate (Lexapro) 10 mg PO DAILY [facility]; Protocol Stop: 03/08/18 08:59 Last Admin: 01/09/18 08:47 Dose: 10 mg Famotidine (Pepcid) 20 mg PO QAM [facility] Stop: 03/05/18 08:59 Last Admin: 01/09/18 08:47 Dose: 20 mg Lorazepam (Ativan) 0.5 mg PO Q4HR PRN; Protocol PRN Reason: Anxiety Stop: 02/03/18 02:35 Magnesium Hydroxide (Milk Of Magnesia) 30 ml PO HS PRN PRN Reason: Constipation Magnesium Hydroxide (Milk Of Magnesia) 30 ml PO HS PRN PRN Reason: Constipation Stop: 03/05/18 11:57 Zolpidem Tartrate (Ambien) 5 mg PO HS PRN PRN Reason: Insomnia Stop: 03/05/18 02:35 Last Admin: 01/08/18 20:23 Dose: 5 mg General: weak, alert, demented HEENT: NC/AT, PERRLA Neck: Supple Lungs: CTAB Cardiovascular: RRR, Normal S1, Normal S2, without murmur Abdomen: soft, non-tender, non-distended Extremities: excoriation Neurological: alert, unable to follow command Internal Medicine Assmt/Plan - Assessment Assessment: HTN Asthma COPD PUD GERD depression - Plan Plan: supplemental/nebs as needed fall precautions continue current tx Nutritional Asmnt/Malnutr-PDOC - Dietary Evaluation Malnutrition Findings (Please click <Entered> for more info): Nutritional Asmnt/Malnutrition Start: 01/06/18 12: 28 Text: Status: Complete Freq: Protocol: Document 01/06/18 12:30 JALIL (Rec: 01/06/18 12:41 DYBRISA [email or web address]) Nutritional Asmnt/Malnutrition Patient General Information Nutritional Screening Moderate Risk Diagnosis psychosis/depression Pertinent Medical Hx/Surgical Hx HTN, asthma/COPD, PUD/GERD, depression Subjective Information Pt resting in bed at time of visit. Pt attempted to answer RD's questions, but unable to speak words or sentences. Per EXTENSION EDGER, pt's confused and has difficulty speaking clearly, but able to self feed and eats well. Nursing noted PO intake : 75%. Current Diet [facility]/ [facility], nectar thick liquids Pertinent Medications dulcolax, pepcid, MOM Pertinent Labs 01/03: Cl 110, cholesterol 212 Nutritional Hx/Data Height 5 ft 3 in Height (Calculated Centimeters) 160.0 Current Weight (lbs) 105 lb Weight (Calculated Kilograms) 47.6 Weight (Calculated Grams) 31649.2 [place] Body Weight 115 lb Body Mass Index (BMI) 18.6 Weight Status Approriate GI Symptoms GI Symptoms None Last BM none noted Difficult in: None Food Allergies No Skin Integrity/Comment: matthew, aníbal 18 Current %PO Good (75-100%) Estimated Nutritional Goals BEE in Kcals: Using Current wt Calories/Kcals/Kg 25-30 Kcals Calculated 6028-3268 Protein: Using Current wt Protein g/k.0 Protein Calculated 48 g Fluid: ml 9214-8271 (1 ml/kcal) Nutritional Problem No current Nutrition Prob Problem no nutrition dx at this time Malnutrition Alert Is there a minimum of two criteria No selected? Query Text:Check all the applicable criteria. A minimum of two criteria are recommended for diagnosis of either severe or non-severe malnutrition. Malnutrition Related to Morbid Obesity Malnutrition related to morbid obesity No Intervention/Recommendation Comments 1. Continue with [facility] soft chopped, nectar thick liquid diet as ordered. Assist w/ meals as needed 2. Monitor PO intake, wt, labs and skin integrity 3. F/U as low risk in 7 days, 01/13 Expected Outcomes/Goals Expected Outcomes/Goals 1. PO intake to continue meeting at least 75% of all meals 2. Wt stability, skin to remain intact, and nutrition related labs to approach normal limits Reviewed by NASH Barnes RD
[2018-01-10] MEDS: Albuterol Nebulizer 2.5mg/3mL HHN SCH ×3 (01:06→12:07)
--- NOTE | 2018-01-10 02:37 | Progress Notes ---
DATE: 01/09/2018 PSYCHIATRIC PROGRESS NOTE SUBJECTIVE: Staff was spoken to. The patient is interviewed. Mood is noted to be depressed. Affect is constricted. Insight and judgment at this time are noted to be still impaired. Impulse control is noted to be limited. Coping skills are also noted to be limited. The patient has been; however, able to tolerate the Lexapro. ASSESSMENT: The patient is still depressed. PLAN: To continue the patient with the supportive therapy and followup. JOB# [id number]
[2018-01-10] MEDS: Aspirin 81mg Chewable Tab PO SCH (08:49)
[2018-01-10] MEDS: Escitalopram Oxalate 5 mg Tab PO SCH (08:49)
--- NOTE | 2018-01-10 13:13 | Internal Medicine Prog Note ---
Internal Medicine Subjective - Subjective Service Date: 01/10/18 Patient is:: awake, confused Per staff patient has:: tolerating meds Internal Medicine Objective - Results Result Diagrams: 01/03/18 21:40 01/03/18 21:40 Recent Labs: Laboratory Last Values WBC 5.9 Th/cmm (4.8-10.8) 01/03/18 21:40 RBC 4.34 Mil/cmm (3.80-5.20) 01/03/18 21:40 Hgb 14.2 gm/dL (12-16) 01/03/18 21:40 Hct 40.8 % (41.0-60) L 01/03/18 21:40 MCV 93.9 fl (81-100) 01/03/18 21:40 MCH 32.7 pg (27.0-31.0) H 01/03/18 21:40 MCHC Differential 34.8 pg (28.0-36.0) 01/03/18 21:40 RDW 13.5 % (11.5-20.0) 01/03/18 21:40 Plt Count 231 Th/cmm (150-400) 01/03/18 21:40 MPV 7.6 fl 01/03/18 21:40 Neutrophils % 66.8 % (40.0-80.0) 01/03/18 21:40 Lymphocytes % 22.8 % (20.0-50.0) 01/03/18 21:40 Monocytes % 5.1 % (2.0-10.0) 01/03/18 21:40 Eosinophils % 2.9 % (0.0-5.0) 01/03/18 21:40 Basophils % 2.4 % (0.0-2.0) H 01/03/18 21:40 Sodium 141 mEq/L (136-145) 01/03/18 21:40 Potassium 4.1 mEq/L (3.5-5.1) 01/03/18 21:40 Chloride 110 mEq/L (98-107) H 01/03/18 21:40 Carbon Dioxide 21.1 mEq/L (21.0-31.0) 01/03/18 21:40 Anion Gap 14.0 (7.0-16.0) 01/03/18 21:40 BUN 24 mg/dL (7-25) 01/03/18 21:40 Creatinine 0.6 mg/dL (0.6-1.2) 01/03/18 21:40 Est GFR ( Amer) TNP 01/03/18 21:40 Est GFR (Non-Af Amer) TNP 01/03/18 21:40 BUN/Creatinine Ratio 40.0 01/03/18 21:40 Glucose 101 mg/dL (70-105) 01/03/18 21:40 Calcium 8.9 mg/dL (8.6-10.3) 01/03/18 21:40 Total Bilirubin 0.5 mg/dL (0.3-1.0) 01/03/18 21:40 AST 14 U/L (13-39) 01/03/18 21:40 ALT 13 U/L (7-52) 01/03/18 21:40 Alkaline Phosphatase 55 U/L (34-104) 01/03/18 21:40 Total Protein 6.1 gm/dL (6.0-8.3) 01/03/18 21:40 Albumin 3.8 gm/dL (3.7-5.3) 01/03/18 21:40 Globulin 2.3 gm/dL 01/03/18 21:40 Albumin/Globulin Ratio 1.7 (1.0-1.8) 01/03/18 21:40 Triglycerides 102 mg/dL (<150) 01/03/18 21:40 Cholesterol 212 mg/dL (<200) H 01/03/18 21:40 LDL Cholesterol Direct 106 mg/dL (75-193) 01/03/18 21:40 HDL Cholesterol 82 mg/dL (23-92) 01/03/18 21:40 TSH 2.80 uIU/ml (0.34-5.60) 01/03/18 21:40 RPR NONREACTIVE (NONREACTIVE) 01/03/18 21:40 - Physical Exam Vitals and I&O: Vital Signs Temp 98.1 F 01/10/18 10:04 Pulse 95 01/10/18 12:08 Resp 16 01/10/18 12:08 BP 145/67 01/10/18 10:04 Pulse Ox 91 01/10/18 12:08 Intake & Output 01/09/18 01/10/18 01/10/18 18:59 06:59 18:59 Intake Total 480 Balance 480 Intake: Oral 480 Other: # Voids 2 2 # Bowel Movements 1 Active Medications: Current Medications Acetaminophen (Tylenol) 650 mg PO Q6H PRN PRN Reason: Pain (Mild)/TEMP Above 100F Stop: 03/05/18 11:57 Acetaminophen/Hydrocodone Bitart ([place] 5mg/325mg) 1 tab PO Q6H PRN PRN Reason: Pain (Severe) Stop: 03/05/18 02:44 Albuterol Sulfate (Albuterol 2.5mg/3ml Neb Ud) 2.5 mg HHN Q6HRT SIMON Stop: 03/05/18 12:59 Last Admin: 01/10/18 12:07 Dose: 2.5 mg Amlodipine Besylate (Norvasc) 5 mg PO DAILY [facility] Stop: 03/05/18 08:59 Last Admin: 01/10/18 08:50 Dose: Not Given Aspirin (Aspirin Chewable) 81 mg PO DAILY [facility] Stop: 03/05/18 08:59 Last Admin: 01/10/18 08:49 Dose: 81 mg Bisacodyl (Dulcolax 10 Mg Supp) 10 mg RC DAILY PRN PRN Reason: Constipation Stop: 03/05/18 02:44 Escitalopram Oxalate (Lexapro) 10 mg PO DAILY [facility]; Protocol Stop: 03/08/18 08:59 Last Admin: 01/10/18 08:49 Dose: 10 mg Famotidine (Pepcid) 20 mg PO QAM [facility] Stop: 03/05/18 08:59 Last Admin: 01/10/18 08:49 Dose: 20 mg Lorazepam (Ativan) 0.5 mg PO Q4HR PRN; Protocol PRN Reason: Anxiety Stop: 02/03/18 02:35 Magnesium Hydroxide (Milk Of Magnesia) 30 ml PO HS PRN PRN Reason: Constipation Magnesium Hydroxide (Milk Of Magnesia) 30 ml PO HS PRN PRN Reason: Constipation Stop: 03/05/18 11:57 Zolpidem Tartrate (Ambien) 5 mg PO HS PRN PRN Reason: Insomnia Stop: 03/05/18 02:35 Last Admin: 01/08/18 20:23 Dose: 5 mg General: weak, alert, demented HEENT: NC/AT, PERRLA Neck: Supple Lungs: CTAB Cardiovascular: RRR, Normal S1, Normal S2, without murmur Abdomen: soft, non-tender, non-distended Extremities: excoriation Neurological: alert, unable to follow command Internal Medicine Assmt/Plan - Assessment Assessment: HTN Asthma COPD PUD GERD depression - Plan Plan: supplemental/nebs as needed fall precautions continue current tx Nutritional Asmnt/Malnutr-PDOC - Dietary Evaluation Malnutrition Findings (Please click <Entered> for more info): Nutritional Asmnt/Malnutrition Start: 01/06/18 12: 28 Text: Status: Complete Freq: Protocol: Document 01/06/18 12:30 ASTERBRISA (Rec: 01/06/18 12:41 DYBRISA [email or web address]) Nutritional Asmnt/Malnutrition Patient General Information Nutritional Screening Moderate Risk Diagnosis psychosis/depression Pertinent Medical Hx/Surgical Hx HTN, asthma/COPD, PUD/GERD, depression Subjective Information Pt resting in bed at time of visit. Pt attempted to answer RD's questions, but unable to speak words or sentences. Per DESK PENS ASSEMBLER, pt's confused and has difficulty speaking clearly, but able to self feed and eats well. Nursing noted PO intake : 75%. Current Diet Order/ [facility], nectar thick liquids Pertinent Medications dulcolax, pepcid, MOM Pertinent Labs 01/03: Cl 110, cholesterol 212 Nutritional Hx/Data Height 5 ft 3 in Height (Calculated Centimeters) 160.0 Current Weight (lbs) 105 lb Weight (Calculated Kilograms) 47.6 Weight (Calculated Grams) 60996.2 [place] Body Weight 115 lb Body Mass Index (BMI) 18.6 Weight Status Approriate GI Symptoms GI Symptoms None Last BM none noted Difficult in: None Food Allergies No Skin Integrity/Comment: aníbal castro 18 Current %PO Good (75-100%) Estimated Nutritional Goals BEE in Kcals: Using Current wt Calories/Kcals/Kg 25-30 Kcals Calculated 1931-0506 Protein: Using Current wt Protein g/k.0 Protein Calculated 48 g Fluid: ml 2306-4937 (1 ml/kcal) Nutritional Problem No current Nutrition Prob Problem no nutrition dx at this time Malnutrition Alert Is there a minimum of two criteria No selected? Query Text:Check all the applicable criteria. A minimum of two criteria are recommended for diagnosis of either severe or non-severe malnutrition. Malnutrition Related to Morbid Obesity Malnutrition related to morbid obesity No Intervention/Recommendation Comments 1. Continue with [facility] soft chopped, nectar thick liquid diet as ordered. Assist w/ meals as needed 2. Monitor PO intake, wt, labs and skin integrity 3. F/U as low risk in 7 days, 01/13 Expected Outcomes/Goals Expected Outcomes/Goals 1. PO intake to continue meeting at least 75% of all meals 2. Wt stability, skin to remain intact, and nutrition related labs to approach normal limits Reviewed by NASH Barnes RD
--- NOTE | 2018-01-10 21:25 | Progress Notes ---
DATE: 01/10/2018 SUBJECTIVE: Staff was spoken to. The patient is interviewed. Mood is noted to be less irritable. Affect is appropriate. Not suicidal or homicidal. Insight and judgment noted to be improving. Impulse control seems to be fair. No side effects to the medications are noted. ASSESSMENT: The patient is stabilizing. PLAN: To discharge the patient today for followup on outpatient basis. JOB# [id number]
== END 2018-01-10 13:45 | DRG 884 ==
LOC: ER 21:13 → GERO2 23:00
PROVIDERS: ADMIT Psychiatry & Neurology Psychiatry; ATTEND Psychiatry & Neurology Psychiatry
DX: F03.91 Unspecified dementia, unspecified severity, with behavioral disturbance (principal); F32.9 Major depressive disorder, single episode, unspecified; I10 Essential (primary) hypertension; J44.9 Chronic obstructive pulmonary disease, unspecified; K27.9 Peptic ulcer, site unspecified, unspecified as acute or chronic, without hemorrhage or perforation; K21.9 Gastro-esophageal reflux disease without esophagitis; Z79.82 Long term (current) use of aspirin
CPT/HCPCS: 36415-UA; 80053-TC; 80061-TC; 83036-90; 84443-TC; 85025-TC; 86592-TC; 93005; 94640; 94760; J7613; Z7610

== ENCOUNTER 2018-06-29 22:00 | Inpatient (IN) | payer MEDICARE ==
[2018-06-29 22:44] LABS: % BASOPHILS 1.2 % (0.0-2.0); % EOSINOPHILS 3.7 % (0.0-5.0); % LYMPHOCYTES 27.2 % (20.0-50.0); % MONOCYTES 7.6 % (2.0-10.0); % NEUTROPHILS 60.3 % (40.0-80.0); BASOPHILE ABSOLUTE 0.1 Th/cumm (0-0.2); EOSINOPHILE ABSOLUTE 0.2 Th/cmm (0.1-0.4); HEMATOCRIT 42.6 % (41.0-60); HEMOGLOBIN 13.9 gm/dL (12-16); LYMPHOCYTE ABSOLUTE 1.3 Th/cmm (1.5-3.0); MEAN CELL VOLUME 93.1 fl (81-100); MEAN CORPUSCULAR HEMOGLOBIN 30.4 pg (27.0-31.0); MEAN CORPUSCULAR HGB CONC 32.6 pg (28.0-36.0); MEAN PLATELET VOLUME 7.4 fl; MONOCYTE ABSOLUTE 0.4 Th/cmm (0.3-1.0); NEUTROPHILE ABSOLUTE 2.9 Th/cmm (1.8-8.0); PLATELET COUNT 218 Th/cmm (150-400); RED BLOOD COUNT 4.58 Mil/cmm (3.80-5.20); RED CELL DISTRIBUTION WIDTH 12.8 % (11.5-20.0); WHITE BLOOD COUNT 4.9 Th/cmm (4.8-10.8)
--- NOTE | 2018-06-29 22:56 | ED Physician Chart ---
ED Chief Complaint/HPI - Patient Information Date Seen:: 06/29/18 Time Seen:: 22:52 Chief Complaint:: agitation increased History of Present Illness:: 83 yr old female here non verbal with hx of copd asthma major depressive disordermuscle weakness ilack of coordination Allergies:: Allergies Allergy/AdvReac Type Severity Reaction Status Date / Time No Known Allergies Allergy Verified 01/03/18 21:34 Vitals:: Vital Signs - 8 hr 06/29/18 22:00 Temp 98.3 F HR 77 RR 16 BP 128/71 O2 Sat % 95 ED Review of Systems - Review of Systems General/Constitutional: No fever Skin: No skin lesions Head: No headache Eyes: No loss of vision ENT: No earache Neck: No neck pain Cardio Vascular: No chest pain GI: No nausea, No vomiting G/U: No dysuria, No hematuria Psychiatric: No anxiety Hematopoietic: No bruising Family Medical History - Family Member Mother History Unknown: Yes Ethnicity: Unknown Living Status: Unknown Hx Family Cancer: (Unknown) Hx Family Coronary Artery Disease: (Unknown) Hx Family Congestive Heart Failure: (Unknown) Hx Family Hypertension: (Unknown) Hx Family Stroke: (Unknown) Hx Family Diabetes: (Unknown) Hx Family Seizures: (Unknown) Hx Family Dementia: (Unknown) Hx Family AIDS: (Unknown) Hx Family COPD: (Unknown) Hx Family Hepatitis: (Unknown) Hx Family Psychiatric Problems: (Unknown) Hx Family Tuberculosis: (Unknown) ED Physical Exam - Physical Examination General/Constitutional: Non-toxic appearing Head: Atraumatic Skin: Nl inspection ENMT: External ears, nose nl Neck: Nontender Cardio Vascular: RRR, NL S1 S2 GI: No tenderness/rebounding/guarding : No CVA tenderness Extremities: No tenderness or effusion Misc: Normal back ED Septic Shock - . Is Septic Shock (SBP<90, OR Lactate>4 mmol\L) present?: No - <6hrs of presentation: Vital Signs: Vital Signs - 8 hr 06/29/18 22:00 Temp 98.3 F HR 77 RR 16 BP 128/71 O2 Sat % 95 ED Reassessment (Disposition) - Reassessment Reassessment:: agitation - Diagnosis Diagnosis:: agitation - Patient Disposition Discharge/Transfer:: Acute Care w/in this hosp Admitted to:: Med/Surg Condition at Disposition:: Stable
--- NOTE | 2018-06-29 23:03 | ED Physician Chart ---
ED Chief Complaint/HPI - Patient Information Allergies:: Allergies Allergy/AdvReac Type Severity Reaction Status Date / Time No Known Allergies Allergy Verified 01/03/18 21:34 Vitals:: Vital Signs - 8 hr 06/29/18 22:00 Temp 98.3 F HR 77 RR 16 BP 128/71 O2 Sat % 95 ED Review of Systems - Review of Systems General/Constitutional: No chills Skin: No skin lesions Head: No headache ENT: No earache Neck: No neck pain Cardio Vascular: No chest pain Pulmonary: No SOB GI: No nausea, No vomiting G/U: No dysuria Psychiatric: No anxiety Hematopoietic: No bruising Neurological: No syncope Family Medical History - Family Member Mother History Unknown: Yes Ethnicity: Unknown Living Status: Unknown Hx Family Cancer: (Unknown) Hx Family Coronary Artery Disease: (Unknown) Hx Family Congestive Heart Failure: (Unknown) Hx Family Hypertension: (Unknown) Hx Family Stroke: (Unknown) Hx Family Diabetes: (Unknown) Hx Family Seizures: (Unknown) Hx Family Dementia: (Unknown) Hx Family AIDS: (Unknown) Hx Family COPD: (Unknown) Hx Family Hepatitis: (Unknown) Hx Family Psychiatric Problems: (Unknown) Hx Family Tuberculosis: (Unknown) ED Labs/Radiology/EKG Results - Lab Results Results: Laboratory Tests 06/29/18 22:35 WBC 4.9 RBC 4.58 Hgb 13.9 Hct 42.6 MCV 93.1 MCH 30.4 MCHC Differential 32.6 RDW 12.8 Plt Count 218 MPV 7.4 Neutrophils % 60.3 Lymphocytes % 27.2 Monocytes % 7.6 Eosinophils % 3.7 Basophils % 1.2 ED Septic Shock - . Is Septic Shock (SBP<90, OR Lactate>4 mmol\L) present?: No - <6hrs of presentation: Vital Signs: Vital Signs - 8 hr 06/29/18 22:00 Temp 98.3 F HR 77 RR 16 BP 128/71 O2 Sat % 95 ED Reassessment (Disposition) - Reassessment Reassessment:: agitation increased depression - Diagnosis Diagnosis:: agitation worsening depression - Aftercare/Follow up Instructions Aftercare/Follow-Up Instructions:: Counseled pt regarding lab results/diagnosis & need follow up - Patient Disposition Discharge/Transfer:: Acute Care w/in this hosp Admitted to:: Med/Surg Condition at Disposition:: Stable
[2018-06-29 23:10] LABS: ALB/GLOB RATIO 1.6 (1.0-1.8); ALBUMIN 3.7 gm/dL (3.7-5.3); ALKALINE PHOSPHATASE 55 U/L (34-104); ANION GAP 14.6 (7.0-16.0); BILIRUBIN,TOTAL 0.5 mg/dL (0.3-1.0); BUN - UREA NITROGEN 23 mg/dL (7-25); CALCIUM SERUM 8.7 mg/dL (8.6-10.3); CARBON DIOXIDE 21.4 mEq/L (21.0-31.0); CHLORIDE 113 mEq/L (98-107); CREATININE - SERUM 0.5 mg/dL (0.6-1.2); GLUCOSE 92 mg/dL (70-105); SGOT 15 U/L (13-39); SGPT/ALT 11 U/L (7-52); SODIUM SERUM 145 mEq/L (136-145)
[2018-06-30 01:31] VITALS: BP 150/80
[2018-06-30] MEDS ORDERED: Hydrocodone/APAP 5mg/325mg Tab PO PRN (01:36)
[2018-06-30] MEDS ORDERED: Magnesium Hydroxide (MOM) 30 mL UDC PO PRN (01:36)
[2018-06-30 09:00] LABS: CHOLESTEROL 198 mg/dL (<200); HDL -HIGH DENSITY LIPOPROTEIN 68 mg/dL (23-92); TRIGLYCERIDES 66 mg/dL (<150)
[2018-06-30] MEDS: Aspirin 81mg Chewable Tab PO SCH (09:55)
--- NOTE | 2018-06-30 17:29 | Psychiatric Evaluation ---
DATE OF SERVICE: 06/30/2018 IDENTIFYING DATA: Staff was spoken to. The patient is interviewed. Chart is reviewed. The patient is an 83-year-old woman, resident of longterm facility that is the [facility]. Information obtained by directly interviewing the patient as well as reviewing the admission papers and they are reliable. JUSTIFICATION FOR HOSPITALIZATION: The patient is admitted here for acute depression. CHIEF COMPLAINT: "I'm feeling depressed, I don't know." HISTORY OF PRESENT ILLNESS: This is a second psychiatric hospitalization who was hospitalized of multiple psychiatric hospitalizations for this patient who was hospitalized under my care in. The patient is reported to have been experiencing depression lately for the past couple of months and not participating in any of the groups. The patient has also been very reluctant to comply with the care. The patient is reported to have been diagnosed with the dementia for the past 10 years and It lately has been getting worse and the patient is reported to have been resorting to aggressive behaviors at this time, but at this time, the patient is noted to be depressed. PAST PSYCHIATRIC HISTORY: Please refer to the above. MEDICAL HISTORY: Physical examination is requested to be done by Dr. Nassar. SUBSTANCE ABUSE HISTORY: None. PHYSICAL OR SEXUAL ABUSE HISTORY: None. SOCIAL HISTORY: The patient is a resident of the [facility]. MENTAL STATUS EXAMINATION: The patient is an 83-year-old, looking her stated age. Mood is noted to be depressed. Affect is constricted. Speech is noted to be coherent, but the patient kept mumbling. The patient's short and long-term are noted to be very much impaired. The patient, however, noted to be alert and aware that she is in the hospital. Attention span and concentration are noted to be very poor. The patient is not presenting with any threats to harm self or others. The patient is not able to recall her date of or where she has been residing try to being in here. DIAGNOSTIC IMPRESSION: AXIS I: Major depressive disorder, recurrent and moderate. AXIS IB: Dementia and behavioral change, secondary trait. AXIS II: None. AXIS III: None. IMMEDIATE TREATMENT PLAN: The patient is going to be observed on inpatient unit, provided with supportive psychotherapy. The patient is going to be closely monitored. I encouraged her to verbalize the concerns rather than to act out and the patient is going to be started on the Lexapro and supportive therapy is going to be provided. ESTIMATED LENGTH OF STAY: 5-7 days. DISCHARGE CRITERIA: When the patient is no longer a threat to self or others and be able to cope up with the stress. [facility]# [id number]
--- NOTE | 2018-06-30 17:36 | History and Physical ---
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.) GI: Report: No Pertinent Hx Psych: Report: Depression Musculoskeletal: Report: Weakness Rheumatologic: Report: No pertinent Hx Infectious Disease: Report: No Pertinent Hx Renal/: Report: No Pertinent Hx Endocrine: Report: No Pertinent Hx Dermatology: Report: No Pertinent Hx Family Medical History - Family Member Mother History Unknown: Yes Ethnicity: Unknown Living Status: Unknown Hx Family Cancer: (Unknown) Hx Family Coronary Artery Disease: (Unknown) Hx Family Congestive Heart Failure: (Unknown) Hx Family Hypertension: (Unknown) Hx Family Stroke: (Unknown) Hx Family Diabetes: (Unknown) Hx Family Seizures: (Unknown) Hx Family Dementia: (Unknown) Hx Family AIDS: (Unknown) Hx Family COPD: (Unknown) Hx Family Hepatitis: (Unknown) Hx Family Psychiatric Problems: (Unknown) Hx Family Tuberculosis: (Unknown) Social History Smoke: No Alcohol: None Drugs: None Lives: Longterm Domestic Violence: Negative - Medications Home Medications: Home Medication Medication Instructions Recorded Type Acetaminophen [Tylenol] 650 mg PO Q6HR PRN 06/29/18 History Albuterol Nebulizer 2.5mg/3mL 2.5 mg IH Q6HR PRN 06/29/18 History [Albuterol Neb UD*] Amlodipine Besylate 5 mg PO DAILY 06/29/18 History Aspirin [Aspirin Chewable] 81 mg PO DAILY 06/29/18 History Bisacodyl [Dulcolax 10 Mg Supp] 10 mg RC DAILY PRN 06/29/18 History Escitalopram Oxalate [Lexapro] 10 mg PO DAILY 06/29/18 History Famotidine 20 mg PO QAM 06/29/18 History Hydrocodone/Acetaminophen [Ralph 1 each PO Q6H PRN 06/29/18 History 5-325 Tablet] Magnesium Hydroxide [Milk of 30 ml PO HS PRN 06/29/18 History Magnesia] - Allergies Allergies/Adverse Reactions: Allergies Allergy/AdvReac Type Severity Reaction Status Date / Time No Known Allergies Allergy Verified 01/03/18 21:34 Review of Systems - Review of Systems Constitutional: Report: Other (Information not available) Eyes: Report: No Significant, Other (Inf not available) ENT: Report: Other (PT non verbal) Respiratory: Report: Other (Patient non Verbal) Cardiovascular: Report: No Significant (Non verbal) Gastrointestinal: Report: No Significant (Non verbal) Genitourinary: Report: Other (Non verbal) Musculoskeletal: Report: Other (Inf not available) Skin: Report: Other (Inf not available) Neurological: Report: Other (Inf not available) Physical Exam - Physical Exam HEENT: Report: Ears Nose Throat within normal limits Neck: Report: Within normal limits Cardiovascular Systems: Report: Regular, Rate and Rhythm Respiratory: Report: Breath Sounds are within normal limits Abdomen: Report: Non-tender to palpation Back: Report: Inspection of back is within normal limits. Extremities: Report: Non-tender to palpation., Other (Non ambulatory) Skin: Report: Color of skin is within normal limits Neuro/Psych: Report: Disoriented to name time or place, Other (Patient non verbal) - Lab Results All Lab Results last 24 hours: Laboratory Results - last 24 hr 06/29/18 06/29/18 06/29/18 22:35 22:35 22:35 WBC 4.9 RBC 4.58 Hgb 13.9 Hct 42.6 MCV 93.1 MCH 30.4 MCHC Differential 32.6 RDW 12.8 Plt Count 218 MPV 7.4 Neutrophils % 60.3 Lymphocytes % 27.2 Monocytes % 7.6 Eosinophils % 3.7 Basophils % 1.2 Sodium 145 Potassium 4.0 Chloride 113 H Carbon Dioxide 21.4 Anion Gap 14.6 BUN 23 Creatinine 0.5 L Est GFR ( Amer) TNP Est GFR (Non-Af Amer) TNP BUN/Creatinine Ratio 46.0 Glucose 92 Calcium 8.7 Total Bilirubin 0.5 AST 15 ALT 11 Alkaline Phosphatase 55 Total Protein 6.0 Albumin 3.7 Globulin 2.3 Albumin/Globulin Ratio 1.6 Triglycerides Cholesterol LDL Cholesterol Direct HDL Cholesterol TSH 2.15 RPR 06/29/18 06/29/18 22:35 22:35 WBC RBC Hgb Hct MCV MCH MCHC Differential RDW Plt Count MPV Neutrophils % Lymphocytes % Monocytes % Eosinophils % Basophils % Sodium Potassium Chloride Carbon Dioxide Anion Gap BUN Creatinine Est GFR ( Amer) Est GFR (Non-Af Amer) BUN/Creatinine Ratio Glucose Calcium Total Bilirubin AST ALT Alkaline Phosphatase Total Protein Albumin Globulin Albumin/Globulin Ratio Triglycerides 66 Cholesterol 198 LDL Cholesterol Direct 104 HDL Cholesterol 68 TSH RPR NONREACTIVE - Assessment Assessment: Patient is awake, alert, calm in no acute distress. Dx: increased in agitation, HTN, COPD, Depression - Plan Plan: Patient is follow by Psychiatry, will continue SNF meds.
[2018-07-01] MEDS: Aspirin 81mg Chewable Tab PO SCH (08:18)
--- NOTE | 2018-07-01 12:26 | General Progress Note ---
Subjective - Review of Systems Service Date: 07/01/18 Subjective: Patient non verbal Objective - Results Result Diagrams: 06/29/18 22:35 06/29/18 22:35 Recent Labs: Laboratory Last Values WBC 4.9 Th/cmm (4.8-10.8) 06/29/18 22:35 RBC 4.58 Mil/cmm (3.80-5.20) 06/29/18 22:35 Hgb 13.9 gm/dL (12-16) 06/29/18 22:35 Hct 42.6 % (41.0-60) 06/29/18 22:35 MCV 93.1 fl (81-100) 06/29/18 22:35 MCH 30.4 pg (27.0-31.0) 06/29/18 22:35 MCHC Differential 32.6 pg (28.0-36.0) 06/29/18 22:35 RDW 12.8 % (11.5-20.0) 06/29/18 22:35 Plt Count 218 Th/cmm (150-400) 06/29/18 22:35 MPV 7.4 fl 06/29/18 22:35 Neutrophils % 60.3 % (40.0-80.0) 06/29/18 22:35 Lymphocytes % 27.2 % (20.0-50.0) 06/29/18 22:35 Monocytes % 7.6 % (2.0-10.0) 06/29/18 22:35 Eosinophils % 3.7 % (0.0-5.0) 06/29/18 22:35 Basophils % 1.2 % (0.0-2.0) 06/29/18 22:35 Sodium 145 mEq/L (136-145) 06/29/18 22:35 Potassium 4.0 mEq/L (3.5-5.1) 06/29/18 22:35 Chloride 113 mEq/L (98-107) H 06/29/18 22:35 Carbon Dioxide 21.4 mEq/L (21.0-31.0) 06/29/18 22:35 Anion Gap 14.6 (7.0-16.0) 06/29/18 22:35 BUN 23 mg/dL (7-25) 06/29/18 22:35 Creatinine 0.5 mg/dL (0.6-1.2) L 06/29/18 22:35 Est GFR ( Amer) TNP 06/29/18 22:35 Est GFR (Non-Af Amer) TNP 06/29/18 22:35 BUN/Creatinine Ratio 46.0 06/29/18 22:35 Glucose 92 mg/dL (70-105) 06/29/18 22:35 Calcium 8.7 mg/dL (8.6-10.3) 06/29/18 22:35 Total Bilirubin 0.5 mg/dL (0.3-1.0) 06/29/18 22:35 AST 15 U/L (13-39) 06/29/18 22:35 ALT 11 U/L (7-52) 06/29/18 22:35 Alkaline Phosphatase 55 U/L (34-104) 06/29/18 22:35 Total Protein 6.0 gm/dL (6.0-8.3) 06/29/18 22:35 Albumin 3.7 gm/dL (3.7-5.3) 06/29/18 22:35 Globulin 2.3 gm/dL 06/29/18 22:35 Albumin/Globulin Ratio 1.6 (1.0-1.8) 06/29/18 22:35 Triglycerides 66 mg/dL (<150) 06/29/18 22:35 Cholesterol 198 mg/dL (<200) 06/29/18 22:35 LDL Cholesterol Direct 104 mg/dL (75-193) 06/29/18 22:35 HDL Cholesterol 68 mg/dL (23-92) 06/29/18 22:35 TSH 2.15 uIU/ml (0.34-5.60) 06/29/18 22:35 RPR NONREACTIVE (NONREACTIVE) 06/29/18 22:35 - Physical Exam Vitals and I&O: Vital Signs Temp 97.9 F 07/01/18 05:00 Pulse 63 07/01/18 08:18 Resp 18 07/01/18 05:00 BP 131/75 07/01/18 08:18 Pulse Ox 90 07/01/18 05:00 Intake & Output 06/30/18 07/01/18 07/01/18 18:59 06:59 18:59 Intake Total 360 480 Balance 360 480 Intake: Oral 360 480 Other: # Voids 3 2 # Bowel Movements 0 Active Medications: Current Medications Acetaminophen (Tylenol) 650 mg PO Q6HR PRN PRN Reason: Pain or Fever >101 Stop: 08/29/18 01:35 Acetaminophen/Hydrocodone Bitart ([place] 5mg/325mg) 1 tab PO Q6H PRN PRN Reason: Pain (Severe) Stop: 08/29/18 01:35 Albuterol Sulfate (Albuterol 2.5mg/3ml Neb Ud) 2.5 mg HHN Q6HRT PRN PRN Reason: Shortness of Breath Stop: 08/29/18 01:35 Amlodipine Besylate (Norvasc) 5 mg PO DAILY [facility] Stop: 08/29/18 08:59 Last Admin: 07/01/18 08:18 Dose: 5 mg Aspirin (Aspirin Chewable) 81 mg PO DAILY [facility] Stop: 08/29/18 08:59 Last Admin: 07/01/18 08:18 Dose: 81 mg Bisacodyl (Dulcolax 10 Mg Supp) 10 mg RC DAILY PRN PRN Reason: Constipation Stop: 08/29/18 01:35 Escitalopram Oxalate (Lexapro) 10 mg PO DAILY [facility]; Protocol Stop: 08/29/18 08:59 Last Admin: 07/01/18 08:19 Dose: 10 mg Famotidine (Pepcid) 20 mg PO QAM [facility] Stop: 08/29/18 08:59 Last Admin: 07/01/18 08:18 Dose: 20 mg Lorazepam (Ativan) 0.5 mg PO Q4HR PRN; Protocol PRN Reason: Anxiety Stop: 07/30/18 01:30 Last Admin: 06/30/18 20:52 Dose: 0.5 mg Magnesium Hydroxide (Milk Of Magnesia) 30 ml PO HS PRN PRN Reason: Constipation Stop: 08/29/18 01:35 Zolpidem Tartrate (Ambien) 5 mg PO HS PRN PRN Reason: Insomnia Stop: 08/29/18 01:30 General: Alert, Other (Confused) HEENT: Atraumatic Neck: Supple Cardiovascular: Regular rate Lungs: Clear to auscultation Abdomen: Bowel sounds Extremities: Other (No edema) Neurological: Other (Non ambulatory) Skin: Other (Warm and dry) Psych/Mental Status: Other (Confused, not oriented.) Assessment/Plan - Assessment Assessment: Patient is awake, alert, calm in no acute distress. Dx: increased in agitation, HTN, COPD, Depression. - Plan Plan: Patient is follow by Psychiatry, will continue SNF meds. Will continue to monitor.
--- NOTE | 2018-07-01 21:22 | Progress Notes ---
DATE: 07/01/2018 SUBJECTIVE: Staff was spoken to. The patient is interviewed. Mood is noted to be depressed. Affect is constricted. The patient is isolative and withdrawn. Coping skills are noted to be poor. Insight and judgment are also noted to be very much limited. The patient is reluctant to participate in any of the groups. ASSESSMENT: The patient is still depressed. PLAN: To continue the patient with the supportive therapy and follow. [facility]# [id number]
[2018-07-02] MEDS: Albuterol Nebulizer 2.5mg/3mL HHN PRN (07:59)
[2018-07-02] MEDS: Aspirin 81mg Chewable Tab PO SCH (09:49)
--- NOTE | 2018-07-02 14:34 | Progress Notes ---
DATE: 07/02/2018 SUBJECTIVE: Staff was spoken to. The patient is interviewed. Mood is noted to be depressed. Affect is constricted. The patient has been having difficult time to swallow the food. Today, the patient is reported to be given the diet. The patient at this time, has been having difficult time. The patient is currently on the Lexapro and the patient has been able to tolerate. The patient is not presenting with any threats to harm self or others. ASSESSMENT: The patient is still depressed. PLAN: To continue the Lexapro and followup. JOB# [id number]
--- NOTE | 2018-07-02 15:35 | General Progress Note ---
Subjective - Review of Systems Service Date: 07/02/18 Subjective: Patient non verbal Objective - Results Result Diagrams: 06/29/18 22:35 06/29/18 22:35 Recent Labs: Laboratory Last Values WBC 4.9 Th/cmm (4.8-10.8) 06/29/18 22:35 RBC 4.58 Mil/cmm (3.80-5.20) 06/29/18 22:35 Hgb 13.9 gm/dL (12-16) 06/29/18 22:35 Hct 42.6 % (41.0-60) 06/29/18 22:35 MCV 93.1 fl (81-100) 06/29/18 22:35 MCH 30.4 pg (27.0-31.0) 06/29/18 22:35 MCHC Differential 32.6 pg (28.0-36.0) 06/29/18 22:35 RDW 12.8 % (11.5-20.0) 06/29/18 22:35 Plt Count 218 Th/cmm (150-400) 06/29/18 22:35 MPV 7.4 fl 06/29/18 22:35 Neutrophils % 60.3 % (40.0-80.0) 06/29/18 22:35 Lymphocytes % 27.2 % (20.0-50.0) 06/29/18 22:35 Monocytes % 7.6 % (2.0-10.0) 06/29/18 22:35 Eosinophils % 3.7 % (0.0-5.0) 06/29/18 22:35 Basophils % 1.2 % (0.0-2.0) 06/29/18 22:35 Sodium 145 mEq/L (136-145) 06/29/18 22:35 Potassium 4.0 mEq/L (3.5-5.1) 06/29/18 22:35 Chloride 113 mEq/L (98-107) H 06/29/18 22:35 Carbon Dioxide 21.4 mEq/L (21.0-31.0) 06/29/18 22:35 Anion Gap 14.6 (7.0-16.0) 06/29/18 22:35 BUN 23 mg/dL (7-25) 06/29/18 22:35 Creatinine 0.5 mg/dL (0.6-1.2) L 06/29/18 22:35 Est GFR ( Amer) TNP 06/29/18 22:35 Est GFR (Non-Af Amer) TNP 06/29/18 22:35 BUN/Creatinine Ratio 46.0 06/29/18 22:35 Glucose 92 mg/dL (70-105) 06/29/18 22:35 Calcium 8.7 mg/dL (8.6-10.3) 06/29/18 22:35 Total Bilirubin 0.5 mg/dL (0.3-1.0) 06/29/18 22:35 AST 15 U/L (13-39) 06/29/18 22:35 ALT 11 U/L (7-52) 06/29/18 22:35 Alkaline Phosphatase 55 U/L (34-104) 06/29/18 22:35 Total Protein 6.0 gm/dL (6.0-8.3) 06/29/18 22:35 Albumin 3.7 gm/dL (3.7-5.3) 06/29/18 22:35 Globulin 2.3 gm/dL 06/29/18 22:35 Albumin/Globulin Ratio 1.6 (1.0-1.8) 06/29/18 22:35 Triglycerides 66 mg/dL (<150) 06/29/18 22:35 Cholesterol 198 mg/dL (<200) 06/29/18 22:35 LDL Cholesterol Direct 104 mg/dL (75-193) 06/29/18 22:35 HDL Cholesterol 68 mg/dL (23-92) 06/29/18 22:35 TSH 2.15 uIU/ml (0.34-5.60) 06/29/18 22:35 RPR NONREACTIVE (NONREACTIVE) 06/29/18 22:35 - Physical Exam Vitals and I&O: Vital Signs Temp 97.6 F 07/02/18 14:00 Pulse 60 07/02/18 14:00 Resp 18 07/02/18 14:00 BP 117/50 07/02/18 14:00 Pulse Ox 98 07/02/18 14:00 Intake & Output 07/01/18 07/02/18 07/02/18 18:59 06:59 18:59 Intake Total 110 Balance 110 Intake: Oral 110 Other: # Voids 2 # Bowel Movements 2 Active Medications: Current Medications Acetaminophen (Tylenol) 650 mg PO Q6HR PRN PRN Reason: Pain or Fever >101 Stop: 08/29/18 01:35 Acetaminophen/Hydrocodone Bitart ([place] 5mg/325mg) 1 tab PO Q6H PRN PRN Reason: Pain (Severe) Stop: 08/29/18 01:35 Albuterol Sulfate (Albuterol 2.5mg/3ml Neb Ud) 2.5 mg HHN Q6HRT PRN PRN Reason: Shortness of Breath Stop: 08/29/18 01:35 Last Admin: 07/02/18 07:59 Dose: 2.5 mg Amlodipine Besylate (Norvasc) 5 mg PO DAILY [facility] Stop: 08/29/18 08:59 Last Admin: 07/02/18 09:49 Dose: 5 mg Aspirin (Aspirin Chewable) 81 mg PO DAILY [facility] Stop: 08/29/18 08:59 Last Admin: 07/02/18 09:49 Dose: 81 mg Bisacodyl (Dulcolax 10 Mg Supp) 10 mg RC DAILY PRN PRN Reason: Constipation Stop: 08/29/18 01:35 Escitalopram Oxalate (Lexapro) 10 mg PO DAILY [facility]; Protocol Stop: 08/29/18 08:59 Last Admin: 07/02/18 09:49 Dose: 10 mg Famotidine (Pepcid) 20 mg PO QAM [facility] Stop: 08/29/18 08:59 Last Admin: 07/02/18 09:49 Dose: 20 mg Lorazepam (Ativan) 0.5 mg PO Q4HR PRN; Protocol PRN Reason: Anxiety Stop: 07/30/18 01:30 Last Admin: 07/02/18 01:08 Dose: 0.5 mg Magnesium Hydroxide (Milk Of Magnesia) 30 ml PO HS PRN PRN Reason: Constipation Stop: 08/29/18 01:35 Zolpidem Tartrate (Ambien) 5 mg PO HS PRN PRN Reason: Insomnia Stop: 08/29/18 01:30 Last Admin: 07/01/18 20:52 Dose: 5 mg General: Alert, Other (Confused) HEENT: Atraumatic Neck: Supple Cardiovascular: Regular rate Lungs: Clear to auscultation Abdomen: Bowel sounds Extremities: Other (No edema) Neurological: Other (Non ambulatory) Skin: Other (Warm and dry) Psych/Mental Status: Other (Confused, not oriented.) Assessment/Plan - Assessment Assessment: Patient is awake, alert, calm in no acute distress. Dx: increased in agitation, HTN, COPD, Depression. - Plan Plan: Patient is follow by Psychiatry, will continue SNF meds. Will continue to monitor.
--- NOTE | 2018-07-02 20:00 | Consultation ---
DATE OF CONSULTATION: 07/01/2018 REFERRING PHYSICIAN: Oleg Parker M.D. TYPE OF CONSULTATION: Psychology. HISTORY OF PRESENT ILLNESS: The patient is an 83-year-old female. The patient is a resident of [facility] in [place]. The following is by record review and by the patient's self report. The patient is being admitted for acute depression. Upon interview, the patient states that she is very depressed and needs help. The patient also stated she does not know why she is depressed. The staff at the patient's facility report that the patient has been reluctant to comply with her care and has been withdrawn and isolative with her mood becoming more unstable. Staff also reports the patient has had some aggressive behaviors in the past. PAST MEDICAL HISTORY: Please see history and physical by Dr. Nassar. PAST PSYCHIATRIC HISTORY: The patient has had multiple previous psychiatric hospitalizations. The patient is under the care of a psychiatrist at her placement. The patient has a history of major depression as well as dementia with behavioral disturbance. SUBSTANCE ABUSE HISTORY: The patient declined to answer these questions. PSYCHOSOCIAL HISTORY: The patient did not answer the questions about occupational or educational history: The patient is conserved. The patient's conservator is Sunita Mitchell. The patient history indicates she is and that her sikh affiliation is [employer]. The patient did not answer questions about whether she has children or other family members involved in her care. The patient expects to return to her [facility] facility. The patient denied any history of physical or sexual abuse or any current legal problems. MENTAL STATUS EXAMINATION: The patient appears to be her stated age. The patient's attitude is superficially cooperative. Eye contact is poor. Mood is depressed. Affect is mood congruent. Thought process shows to be linear. Speech is slow and soft. The patient is mumbling her responses. The patient denied any auditory or visual hallucinations or any delusions. She denied any suicidal ideation, plan or intention.The patient's behavior is withdrawn. Impulse control is limited. Concentration is poor. The patient was unable to participate in the memory assessment. The patient seemed frustrated and did not want to answer the clinical questions. It appears short-term and long-term memory are impaired. Concentration is poor. The patient was unable to sustain focus and attention. Sensorium is alert and oriented to self and place only. The patient did not participate in the interpretation of proverbs. Insight is poor. Judgment is compromised. DIAGNOSTIC IMPRESSION: AXIS I: 1. History of major depressive disorder, recurrent, severe. 2. History of dementia with behavioral disturbance. AXIS II: Deferred. AXIS III: Per Dr. Nassar. TREATMENT PLAN: The patient has been seen by Dr. Parker for psychiatric evaluation and for the management of the patient's psychotropic medications. We will provide supportive psychotherapy to include reality orientation and integration. We will provide cognitive behavioral therapy to address the patient's depression. We will provide insight oriented and reflective listening approaches and to include coping strategies for phase of life issues. We will provide motivational enhancement for the patient to become compliant and stay compliant with all aspects of her care and treatment. We will continue supportive therapy throughout the patient's hospital stay. We will monitor for any suicidal ideation and provide daily opportunities to verbally contract for safety. Thank you, Dr. Parker for this consult and the opportunity to participate in this patient's care. [facility]# [id number] [place]
[2018-07-03] MEDS: Aspirin 81mg Chewable Tab PO SCH (08:55)
--- NOTE | 2018-07-03 12:37 | General Progress Note ---
Subjective - Review of Systems Service Date: 07/03/18 Subjective: Patient non verbal Objective - Results Result Diagrams: 06/29/18 22:35 06/29/18 22:35 Recent Labs: Laboratory Last Values WBC 4.9 Th/cmm (4.8-10.8) 06/29/18 22:35 RBC 4.58 Mil/cmm (3.80-5.20) 06/29/18 22:35 Hgb 13.9 gm/dL (12-16) 06/29/18 22:35 Hct 42.6 % (41.0-60) 06/29/18 22:35 MCV 93.1 fl (81-100) 06/29/18 22:35 MCH 30.4 pg (27.0-31.0) 06/29/18 22:35 MCHC Differential 32.6 pg (28.0-36.0) 06/29/18 22:35 RDW 12.8 % (11.5-20.0) 06/29/18 22:35 Plt Count 218 Th/cmm (150-400) 06/29/18 22:35 MPV 7.4 fl 06/29/18 22:35 Neutrophils % 60.3 % (40.0-80.0) 06/29/18 22:35 Lymphocytes % 27.2 % (20.0-50.0) 06/29/18 22:35 Monocytes % 7.6 % (2.0-10.0) 06/29/18 22:35 Eosinophils % 3.7 % (0.0-5.0) 06/29/18 22:35 Basophils % 1.2 % (0.0-2.0) 06/29/18 22:35 Sodium 145 mEq/L (136-145) 06/29/18 22:35 Potassium 4.0 mEq/L (3.5-5.1) 06/29/18 22:35 Chloride 113 mEq/L (98-107) H 06/29/18 22:35 Carbon Dioxide 21.4 mEq/L (21.0-31.0) 06/29/18 22:35 Anion Gap 14.6 (7.0-16.0) 06/29/18 22:35 BUN 23 mg/dL (7-25) 06/29/18 22:35 Creatinine 0.5 mg/dL (0.6-1.2) L 06/29/18 22:35 Est GFR ( Amer) TNP 06/29/18 22:35 Est GFR (Non-Af Amer) TNP 06/29/18 22:35 BUN/Creatinine Ratio 46.0 06/29/18 22:35 Glucose 92 mg/dL (70-105) 06/29/18 22:35 Calcium 8.7 mg/dL (8.6-10.3) 06/29/18 22:35 Total Bilirubin 0.5 mg/dL (0.3-1.0) 06/29/18 22:35 AST 15 U/L (13-39) 06/29/18 22:35 ALT 11 U/L (7-52) 06/29/18 22:35 Alkaline Phosphatase 55 U/L (34-104) 06/29/18 22:35 Total Protein 6.0 gm/dL (6.0-8.3) 06/29/18 22:35 Albumin 3.7 gm/dL (3.7-5.3) 06/29/18 22:35 Globulin 2.3 gm/dL 06/29/18 22:35 Albumin/Globulin Ratio 1.6 (1.0-1.8) 06/29/18 22:35 Triglycerides 66 mg/dL (<150) 06/29/18 22:35 Cholesterol 198 mg/dL (<200) 06/29/18 22:35 LDL Cholesterol Direct 104 mg/dL (75-193) 06/29/18 22:35 HDL Cholesterol 68 mg/dL (23-92) 06/29/18 22:35 TSH 2.15 uIU/ml (0.34-5.60) 06/29/18 22:35 RPR NONREACTIVE (NONREACTIVE) 06/29/18 22:35 - Physical Exam Vitals and I&O: Vital Signs Temp 97.8 F 07/03/18 05:50 Pulse 60 07/03/18 08:55 Resp 20 07/03/18 08:00 BP 146/75 07/03/18 08:55 Pulse Ox 91 07/03/18 07:50 Intake & Output 07/02/18 07/03/18 07/03/18 18:59 06:59 18:59 Intake Total 960 240 Balance 960 240 Weight (lbs) 47.627 kg Intake: Oral 960 240 Other: # Voids 3 3 # Bowel Movements 0 0 Weight Source Bedscale Active Medications: Current Medications Acetaminophen (Tylenol) 650 mg PO Q6HR PRN PRN Reason: Pain or Fever >101 Stop: 08/29/18 01:35 Acetaminophen/Hydrocodone Bitart ([place]ake 5mg/325mg) 1 tab PO Q6H PRN PRN Reason: Pain (Severe) Stop: 08/29/18 01:35 Albuterol Sulfate (Albuterol 2.5mg/3ml Neb Ud) 2.5 mg HHN Q6HRT PRN PRN Reason: Shortness of Breath Stop: 08/29/18 01:35 Last Admin: 07/02/18 07:59 Dose: 2.5 mg Amlodipine Besylate (Norvasc) 5 mg PO DAILY [facility] Stop: 08/29/18 08:59 Last Admin: 07/03/18 08:55 Dose: 5 mg Aspirin (Aspirin Chewable) 81 mg PO DAILY [facility] Stop: 08/29/18 08:59 Last Admin: 07/03/18 08:55 Dose: 81 mg Bisacodyl (Dulcolax 10 Mg Supp) 10 mg RC DAILY PRN PRN Reason: Constipation Stop: 08/29/18 01:35 Escitalopram Oxalate (Lexapro) 10 mg PO DAILY [facility]; Protocol Stop: 08/29/18 08:59 Last Admin: 07/03/18 08:50 Dose: 10 mg Famotidine (Pepcid) 20 mg PO QAM [facility] Stop: 08/29/18 08:59 Last Admin: 07/03/18 08:55 Dose: 20 mg Lorazepam (Ativan) 0.5 mg PO Q4HR PRN; Protocol PRN Reason: Anxiety Stop: 07/30/18 01:30 Last Admin: 07/02/18 01:08 Dose: 0.5 mg Magnesium Hydroxide (Milk Of Magnesia) 30 ml PO HS PRN PRN Reason: Constipation Stop: 08/29/18 01:35 Zolpidem Tartrate (Ambien) 5 mg PO HS PRN PRN Reason: Insomnia Stop: 08/29/18 01:30 Last Admin: 07/02/18 21:09 Dose: 5 mg General: Alert, Other (Confused) HEENT: Atraumatic Neck: Supple Cardiovascular: Regular rate Lungs: Clear to auscultation Abdomen: Bowel sounds Extremities: Other (No edema) Neurological: Other (Non ambulatory) Skin: Other (Warm and dry) Psych/Mental Status: Other (Confused, not oriented.) Assessment/Plan - Assessment Assessment: Patient is awake, alert, calm in no acute distress. Dx: increased in agitation, HTN, COPD, Depression. - Plan Plan: Patient is follow by Psychiatry, will continue SNF meds. Will continue to monitor.
--- NOTE | 2018-07-03 14:05 | Progress Notes ---
DATE: 07/03/2018 PSYCHIATRIC PROGRESS NOTE SUBJECTIVE: SUBJECTIVE: Staff was spoken to. The patient is interviewed. Mood is noted to be irritable. Affect is constricted. The patient is isolative and withdrawn even when the Seroquel has been discontinued. The patient is sleeping most of the time. No side effects to the medications are noted. ASSESSMENT: The patient is still depressed. PLAN: To continue the patient with the supportive therapy and followup. [facility]# [id number]
[2018-07-03] MEDS: Albuterol Nebulizer 2.5mg/3mL HHN PRN (20:11)
[2018-07-04] MEDS: Aspirin 81mg Chewable Tab PO SCH (08:29)
--- NOTE | 2018-07-04 14:53 | Diagnostic Imaging Report ---
CHEST X-RAY: AP view INDICATION: Shortness of breath COMPARISON: 06/09/2017 FINDINGS: Support devices including left chest wall pacer is stable. Chronic COPD lung changes are noted. No focal consolidation or effusions. There are skin folds along the right hemithorax. Atherosclerosis is noted. Heart size is normal. IMPRESSION: COPD lung changes. No focal consolidation identified. Skinfold along the right upper hemithorax. A repeat axillary is, however, recommended for confirmation. No gross pneumothorax identified. Atherosclerotic vascular disease.
--- NOTE | 2018-07-05 01:25 | Progress Notes ---
DATE: 07/04/2018 SUBJECTIVE: Staff was spoken to. The patient is interviewed. The patient was seen by me at 10:30 in the morning. The patient has been too sleepy. The patient's psychotropic medication has been taken out. Even then, the patient has been reluctant to participate in any of the groups. Mood is noted to be still depressed. apartment house manager and her staff nurse have been requested to have the medical doctor to review her labs and reassess the patient for any medical issues. ASSESSMENT: The patient is still depressed and very drowsy at this time. PLAN: To continue the patient with supportive therapy and follow up on the medical advice. JOB# [id number]
--- NOTE | 2018-07-05 14:35 | Progress Notes ---
DATE: 07/04/2018 PSYCHOLOGY PROGRESS NOTE SUBJECTIVE: The patient is seen and is interviewed. Case is discussed with staff. The patient is in her room and is somnolent, but arousable verbally. Mood is mildly irritable. The patient continues to be isolative and withdrawn according to the staff. OBJECTIVE: Mood is mildly irritable. Affect is constricted. Thought process shows to be confused. The patient's speech is rambling and almost word salad. The patient was unable to verbalize her concerns to this provider. The patient did not answer the questions about experiencing auditory or visual hallucinations. Staff reports the patient appears to be depressed as well as withdrawn. ASSESSMENT AND PLAN: The patient's Seroquel has been discontinued by the attending psychiatrist. The patient has been taking her p.o. medications. We provided coping strategies for phase of life issues. We provided positive reinforcement and encouragement for the patient to verbalize her concerns. We provided reality integration. No followup is indicated. The staff reports the patient is scheduled to be discharged today and transferred to the medical floor. JOB# [id number] CALI
== END 2018-07-04 16:25 | disposition short-term general hospital (02) | DRG 885 ==
LOC: ER 22:00 → GERO2 06-30 00:47
PROVIDERS: ADMIT Psychiatry & Neurology Psychiatry; ATTEND Psychiatry & Neurology Psychiatry
DX: F33.1 Major depressive disorder, recurrent, moderate (principal); F03.91 Unspecified dementia, unspecified severity, with behavioral disturbance; J44.9 Chronic obstructive pulmonary disease, unspecified; I10 Essential (primary) hypertension
CPT/HCPCS: 36415-UA; 71045-TC; 80053-TC; 80061-TC; 83036-90; 84443-TC; 85025-TC; 86592-TC; 94760; J7613

== ENCOUNTER 2018-07-04 17:42 | Inpatient (IN) | payer MEDICARE ==
[2018-07-04] MEDS ORDERED: Albuterol/Ipratropium Neb 3 ML AERS HHN PRN (18:27)
[2018-07-04] MEDS: Levofloxacin 500mg/100mL 500 MG/100 ML BAG IV SCH (21:18)
[2018-07-04] MEDS: D5-0.45NS 1,000 ML IV SCH (21:18)
[2018-07-05 03:57] LABS: URINE SOURCE CLEAN C
[2018-07-05 04:08] LABS: URINE BILIRUBIN NEGATIVE (NEGATIVE); URINE BLOOD MODERATE (NEGATIVE); URINE GLUCOSE (UA) NEGATIVE (NEGATIVE); URINE KETONE NEGATIVE (NEGATIVE); URINE LEUKOCYTE ESTERASE MODERATE (NEGATIVE); URINE MICROSCOPIC INDICATED? YES; URINE NITRATE POSITIVE (NEGATIVE); URINE PH 5.5 (4.6 - 8.0); URINE PROTEIN TRACE mg/dL (NEGATIVE); URINE UROBILINOGEN 0.2 E.U./dL (0.2 - 1.0)
[2018-07-05 04:34] LABS: URINE CLARITY CLOUDY (CLEAR); URINE COLOR YELLOW
[2018-07-05 04:36] LABS: URINE BACTERIA MANY /hpf (NONE SEEN); URINE EPITHELIAL CELLS MODERATE /lpf (FEW)
[2018-07-05 05:40] LABS: % BASOPHILS 0.6 % (0.0-2.0); % EOSINOPHILS 7.1 % (0.0-5.0); % LYMPHOCYTES 17.2 % (20.0-50.0); % MONOCYTES 13.8 % (2.0-10.0); % NEUTROPHILS 61.3 % (40.0-80.0); EOSINOPHILE ABSOLUTE 0.2 Th/cmm (0.1-0.4); HEMATOCRIT 41.5 % (41.0-60); HEMOGLOBIN 13.8 gm/dL (12-16); LYMPHOCYTE ABSOLUTE 0.6 Th/cmm (1.5-3.0); MEAN CELL VOLUME 92.4 fl (81-100); MEAN CORPUSCULAR HEMOGLOBIN 30.7 pg (27.0-31.0); MEAN CORPUSCULAR HGB CONC 33.2 pg (28.0-36.0); MEAN PLATELET VOLUME 8.4 fl; MONOCYTE ABSOLUTE 0.5 Th/cmm (0.3-1.0); NEUTROPHILE ABSOLUTE 2.2 Th/cmm (1.8-8.0); PLATELET COUNT 171 Th/cmm (150-400); RED BLOOD COUNT 4.49 Mil/cmm (3.80-5.20); RED CELL DISTRIBUTION WIDTH 12.4 % (11.5-20.0)
[2018-07-05 05:48] LABS: ALB/GLOB RATIO 1.4 (1.0-1.8); ALBUMIN 3.6 gm/dL (3.7-5.3); ALKALINE PHOSPHATASE 53 U/L (34-104); ANION GAP 9.3 (7.0-16.0); BILIRUBIN,TOTAL 0.6 mg/dL (0.3-1.0); BUN - UREA NITROGEN 16 mg/dL (7-25); CALCIUM SERUM 8.5 mg/dL (8.6-10.3); CARBON DIOXIDE 27.8 mEq/L (21.0-31.0); CHLORIDE 108 mEq/L (98-107); CREATININE - SERUM 0.5 mg/dL (0.6-1.2); GLUCOSE 107 mg/dL (70-105); MAGNESIUM 2.2 mg/dL (1.9-2.7); POTASSIUM SERUM 4.1 mEq/L (3.5-5.1); SGOT 10 U/L (13-39); SGPT/ALT 8 U/L (7-52); SODIUM SERUM 141 mEq/L (136-145); TOTAL PROTEIN,SERUM 6.2 gm/dL (6.0-8.3)
[2018-07-05 05:51] LABS: WHITE BLOOD COUNT 3.5 Th/cmm (4.8-10.8)
[2018-07-05] MEDS: D5-0.45NS 1,000 ML IV SCH (08:31)
--- NOTE | 2018-07-05 11:16 | History & Physical Pre-OP ---
DATE OF SERVICE: 07/05/2018 CHIEF COMPLAINT: Dysphagia, chest congestion. HISTORY OF PRESENT ILLNESS: The patient is an 83-year-old female who was admitted to [facility] on 06/30/2018 for agitation, psych decompensation. The patient has been noted to have difficulty taking her pills including her regular/scheduled medications while in the [facility] owen and she also was noted to have increased congestion and cough. Therefore, she underwent a ST eval at bedside with noticeable dysphagia noted with high risk of aspiration. The patient was discharged and admitted to the medical floor for further management and care. Her medical history includes history of CVA with dyspahagia (unknown baseline), hemiplegia with right-sided weakness, dysarthria with expressive aphasia, seizure activity , and muscle spasm and generilized weakness. 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 The patient appears to be comfortable, but is noticeably congested. When I asked questions, she tries to articulate, but not able to put sentences together. PAST MEDICAL HISTORY: As noted above. PAST SURGICAL HISTORY: None listed. FAMILY HISTORY: Likely noncontributory to this admission. SOCIAL HISTORY: The patient was transferred from a half-way. ALLERGIES: CIPRO, PENICILLIN, SULFA. OUTPATIENT MEDICATIONS: ALBUTEROL HHN PRN, NORCO 5/325-PRN, TYLENOL 650MG PRN, AMLODIPINE 5MG QDAY ECASA 81MG QDAY, DULCOLAX 10MG SUPP-PER RECTUM PRN, LEXAPRO 10MG QDAY, PEPCID 20MG QDAY, ATIVAN 0.5MG Q4/PRN-ANXIETY, MOM-PRN, AMBIEN 5MG QHS/PRN. REVIEW OF SYSTEMS: CONSTITUTIONAL: No fever or chills reported by staff. CARDIAC: Denies any chest pain, any palpitations. No tachycardia noted on vital signs. PULMONARY: Congested with nonproductive cough, no noticeable shortness of breath noted at this time. GASTROINTESTINAL: No bowel habit changes. GENITOURINARY: No bladder habit changes. NEUROLOGIC: As noted in the HPI. Right-sided weakness and dysarthria as noted above. PHYSICAL EXAMINATION: VITAL SIGNS: Temperature 96.7, pulse 62, respirations 18, BP 126/109, satting 99% on 2 liters/min. GENERAL: She is a well-developed, thin female, not in acute distress. She is nontoxic appearing at this time. HEAD AND NECK: Normocephalic, atraumatic. Pupils reactive to light. Extraocular movements are intact. Oropharynx is moist and clear. CARDIAC: Regular rate and rhythm with distant sounds. LUNGS: Has got coarse breath sounds bilaterally with rhonchi on both lungs. No wheezing noted at this time. ABDOMEN: Soft, supple, nontender, nondistended, normoactive bowel sounds. LOWER EXTREMITIES: No pedal edema. NEUROLOGIC: Noticeable for right-sided weakness. Dysarthria as noted above. Cranial nerves 2-12 appear to be within normal limits. LABS: wbc: 3.5, h/h: 13.8/41.5, plts-171. Chem-7 wnl, lfts-wnl, UA-c/w uti. DIAGNOSTICS: Chest x-ray: no acute focal pulm processes. C/W prior exam (07/04) there are no significant changes. ASSESSMENT: 1. Dysphagia with possible aspiration. 2. Rule out aspiration, pneumonia versus bronchitis. 3. History of cerebrovascular accident with hx of dysphagia, dysarthria/aphasia , right hemiparesis with unknown baseline. 4. 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 5. History of seizure disorder, currently stable. 6. History of generalized muscle weakness with spasms. PLAN: The patient has been admitted to the medical floor for further management and care. The patient has been placed on IV fluids and is currently n.p.o. She will undergo a barium swallow eval to further assess the degree of the dysphagia. CT scan of head will be ordered to further assess for an acute event and baseline. She will be started on antibiotics, breathing treatments and oxygen as needed. We will continue to provide her with her meds as tolerated once barieum results are available. Psych consult will also be asked for further management of her recent psych decompensation. [facility]# [id number] CALI
--- NOTE | 2018-07-05 13:16 | Diagnostic Imaging Report ---
Portable chest x-ray HISTORY: Shortness of breath Compared to prior exam of July 04, 2018, the heart size is normal. Lungs are hyperexpanded. No acute focal pulmonary processes. IMPRESSION: No significant change from July 04, 2018. No acute pulmonary processes
--- NOTE | 2018-07-05 13:22 | Diagnostic Imaging Report ---
Barium swallow (modified video swallow) in conjunction with be to pathology HISTORY: Esophageal reflux, question aspiration, dysphasia The exam was performed in conjunction with speech pathology. Barium preparations of varying density inconsistency were administered by mouth. See separate speech pathology report for observations and recommendations. 1 minute 40 seconds fluoroscopy time utilized.
[2018-07-05] MEDS: Levofloxacin 500mg/100mL 500 MG/100 ML BAG IV SCH (20:10)
[2018-07-05] MEDS ORDERED: Magnesium Hydroxide (MOM) 30 mL UDC PO PRN (21:24)
[2018-07-06] MEDS: D5-0.45NS 1,000 ML IV SCH ×2 (00:22→14:32)
[2018-07-06 05:54] LABS: HEMATOCRIT 40.8 % (41.0-60); HEMOGLOBIN 13.4 gm/dL (12-16); MEAN CELL VOLUME 94.2 fl (81-100); MEAN CORPUSCULAR HGB CONC 32.9 pg (28.0-36.0); MEAN PLATELET VOLUME 7.9 fl; PLATELET COUNT 164 Th/cmm (150-400); RED BLOOD COUNT 4.33 Mil/cmm (3.80-5.20); RED CELL DISTRIBUTION WIDTH 12.4 % (11.5-20.0)
[2018-07-06 06:06] LABS: ANION GAP 9.8 (7.0-16.0); BUN - UREA NITROGEN 7 mg/dL (7-25); CALCIUM SERUM 8.3 mg/dL (8.6-10.3); CARBON DIOXIDE 23.8 mEq/L (21.0-31.0); CHLORIDE 107 mEq/L (98-107); CREATININE - SERUM 0.5 mg/dL (0.6-1.2); GLUCOSE 100 mg/dL (70-105); POTASSIUM SERUM 3.6 mEq/L (3.5-5.1); SODIUM SERUM 137 mEq/L (136-145)
--- NOTE | 2018-07-06 08:40 | Internal Medicine Prog Note ---
Internal Medicine Subjective - Subjective Service Date: 07/06/18 (appears less lethargic and less congested. On soft) Patient seen and examined:: without staff Patient is:: awake Patient Complaints of:: congestion Per staff patient has:: no adverse event (has not been fed yet) Internal Medicine Objective - Results Result Diagrams: 07/06/18 05:20 07/06/18 05:20 Recent Labs: Laboratory Last Values WBC 3.0 Th/cmm (4.8-10.8) L 07/06/18 05:20 RBC 4.33 Mil/cmm (3.80-5.20) 07/06/18 05:20 Hgb 13.4 gm/dL (12-16) 07/06/18 05:20 Hct 40.8 % (41.0-60) L 07/06/18 05:20 MCV 94.2 fl (81-100) 07/06/18 05:20 MCH 31.0 pg (27.0-31.0) 07/06/18 05:20 MCHC Differential 32.9 pg (28.0-36.0) 07/06/18 05:20 RDW 12.4 % (11.5-20.0) 07/06/18 05:20 Plt Count 164 Th/cmm (150-400) 07/06/18 05:20 MPV 7.9 fl 07/06/18 05:20 Add Manual Diff YES 07/06/18 05:20 Neutrophils % 61.3 % (40.0-80.0) 07/05/18 04:45 Lymphocytes % 17.2 % (20.0-50.0) L 07/05/18 04:45 Monocytes % 13.8 % (2.0-10.0) H 07/05/18 04:45 Eosinophils % 7.1 % (0.0-5.0) H 07/05/18 04:45 Basophils % 0.6 % (0.0-2.0) 07/05/18 04:45 Sodium 137 mEq/L (136-145) 07/06/18 05:20 Potassium 3.6 mEq/L (3.5-5.1) 07/06/18 05:20 Chloride 107 mEq/L (98-107) 07/06/18 05:20 Carbon Dioxide 23.8 mEq/L (21.0-31.0) 07/06/18 05:20 Anion Gap 9.8 (7.0-16.0) 07/06/18 05:20 BUN 7 mg/dL (7-25) 07/06/18 05:20 Creatinine 0.5 mg/dL (0.6-1.2) L 07/06/18 05:20 Est GFR ( Amer) TNP 07/06/18 05:20 Est GFR (Non-Af Amer) TNP 07/06/18 05:20 BUN/Creatinine Ratio 14.0 07/06/18 05:20 Glucose 100 mg/dL (70-105) 07/06/18 05:20 Calcium 8.3 mg/dL (8.6-10.3) L 07/06/18 05:20 Magnesium 2.0 mg/dL (1.9-2.7) 07/06/18 05:20 Total Bilirubin 0.6 mg/dL (0.3-1.0) 07/05/18 04:45 AST 10 U/L (13-39) L 07/05/18 04:45 ALT 8 U/L (7-52) 07/05/18 04:45 Alkaline Phosphatase 53 U/L (34-104) 07/05/18 04:45 Ammonia 42 umol/L (16-53) 07/05/18 04:45 Total Protein 6.2 gm/dL (6.0-8.3) 07/05/18 04:45 Albumin 3.6 gm/dL (3.7-5.3) L 07/05/18 04:45 Globulin 2.6 gm/dL 07/05/18 04:45 Albumin/Globulin Ratio 1.4 (1.0-1.8) 07/05/18 04:45 TSH 1.99 uIU/ml (0.34-5.60) 07/05/18 04:45 Urine Source CLEAN C 07/05/18 02:44 Urine Color YELLOW 07/05/18 02:44 Urine Clarity CLOUDY (CLEAR) H 07/05/18 02:44 Urine pH 5.5 (4.6 - 8.0) 07/05/18 02:44 Ur Specific [place] >= 1.030 (1.005-1.030) 07/05/18 02:44 Urine Protein TRACE mg/dL (NEGATIVE) 07/05/18 02:44 Urine Glucose (UA) NEGATIVE mg/dL (NEGATIVE) 07/05/18 02:44 Urine Ketones NEGATIVE mg/dL (NEGATIVE) 07/05/18 02:44 Urine Blood MODERATE (NEGATIVE) H 07/05/18 02:44 Urine Nitrate POSITIVE (NEGATIVE) H 07/05/18 02:44 Urine Bilirubin NEGATIVE (NEGATIVE) 07/05/18 02:44 Urine Urobilinogen 0.2 E.U./dL (0.2 - 1.0) 07/05/18 02:44 Ur Leukocyte Esterase MODERATE (NEGATIVE) H 07/05/18 02:44 Urine RBC 2-5 /hpf (0-5) 07/05/18 02:44 Urine WBC 10-25 /hpf (0-5) H 07/05/18 02:44 Ur Epithelial Cells MODERATE /lpf (FEW) 07/05/18 02:44 Urine Bacteria MANY /hpf (NONE SEEN) H 07/05/18 02:44 - Physical Exam Vitals and I&O: Vital Signs Temp 98.4 F 07/06/18 04:00 Pulse 60 07/06/18 04:00 Resp 17 07/06/18 04:00 BP 129/72 07/06/18 04:00 Pulse Ox 97 07/06/18 04:00 Intake & Output 07/05/18 07/06/18 07/06/18 18:59 06:59 18:59 Intake Total 841.25 1000 Balance 841.25 1000 Intake: Intake, IV Amount 841.25 1000 D5-0.45NS 1,000 ml @ 75 841.25 1000 mls/hr IV .[id number] [facility] Rx #:[id number] Active Medications: Current Medications Acetaminophen (Tylenol) 650 mg PO Q6H PRN PRN Reason: Pain or Fever >101 Stop: 09/03/18 21:21 Albuterol/Ipratropium (Duoneb Neb) 3 ml HHN Q4HRT PRN PRN Reason: Wheezing Stop: 09/02/18 18:26 Amlodipine Besylate (Norvasc) 10 mg PO DAILY [facility] Stop: 09/04/18 08:59 Aspirin (Aspirin Chewable) 81 mg PO DAILY [facility] Stop: 09/04/18 08:59 Bisacodyl (Dulcolax 10 Mg Supp) 10 mg RC DAILY PRN PRN Reason: Constipation Stop: 09/03/18 21:21 Escitalopram Oxalate (Lexapro) 5 mg PO DAILY [facility]; Protocol Stop: 09/04/18 08:59 Escitalopram Oxalate (Lexapro) 10 mg PO DAILY [facility]; Protocol Stop: 09/04/18 08:59 Dextrose/Sodium Chloride (D5-0.45ns) 1,000 mls @ 75 mls/hr IV .[id number] [facility] Stop: 09/02/18 18:29 Last Admin: 07/06/18 00:22 Dose: 75 mls/hr Levofloxacin (Levaquin Pb) 500 mg in 100 mls @ 100 mls/hr IV Q24HR [facility] Stop: 09/02/18 19:59 Last Admin: 07/05/18 20:10 Dose: 100 mls/hr Lorazepam (Ativan) 0.5 mg PO Q4H PRN; Protocol PRN Reason: Anxiety Stop: 09/03/18 21:21 Magnesium Hydroxide (Milk Of Magnesia) 30 ml PO HS PRN PRN Reason: Constipation Stop: 09/03/18 21:23 Miscellaneous (Clinical Monitoring) 1 ea MC DAILY PRN PRN Reason: SERUM CREATININE Stop: 09/02/18 19:17 Pantoprazole Sodium (Protonix) 40 mg IVP DAILY [facility] Stop: 09/03/18 08:59 Last Admin: 07/05/18 08:25 Dose: 40 mg Pantoprazole Sodium (Protonix) 40 mg IVP DAILY [facility] Stop: 09/04/18 08:59 Zolpidem Tartrate (Ambien) 5 mg PO HS PRN PRN Reason: Insomnia Stop: 09/03/18 21:23 Last Admin: 07/06/18 00:21 Dose: 5 mg General: congested, alert, thin, NAD HEENT: NC/AT, PERRLA, EOMI Neck: Supple, No JVD, No LAD Lungs: congested, rales, ronchi Cardiovascular: RRR, Normal S1, Normal S2, without murmur Abdomen: soft, non-tender, non-distended, positive bowel sound Extremities: clear, erythema, redness Neurological: no change (expressive aphasia) - Procedures Procedures: BARIUM SWALLOW: MODERATE DELAY OF PHARYNGEAL DYSPAHGIA CHARACTERIZED BY LABIAL SPILLAGE ON RIGHT SIDE OF ALL BOLUSES, PROLONGED ORAL PREP, MASTICATION AND HOLDING OF ORAL BOLUS, MOD DELAY OF PHARYNGEAL SWALLOW RESPONSE. PT REQUIRED MAX VERBAL CUES TO INITIATE SWALLOW. NO EPISODES OF LARYNGEAL PENETRATION OR ASPIRATION WERE OBSERVED. Recommend: 1) Advance to mechanical soft ground diet, NECTAR thick liquids only. 2) P.O. meds crushed and mixed w/ a puree. 3) 1:1 feeder with strict aspiration precautions 4) Consider neuro workup (i.e., head CT) due to what appears to be new onset of R facial droop, R side weakness and expressive aphasia. No further swallow tx indicated at this time due to limited rehab potential. DC to [facility] care at this time. ' Internal Medicine Assmt/Plan - Assessment Assessment: 1) DYSPAHGIA WITH PHARYNGEAL DYSPHAGIA (NO EVIDENCE OF ASPIRATION). 2) CONGESTION-?BRONCHITIS VS EARLY PNA-clinically stable/cxr remains clear. 3) UTI-follow c/s. 4) HISTORY OF CVA WITH LATE FINDINGS (dysphagia, rhp, expressive aphasia). 5) LIKELY VASCULAR DEMENTIA. 6) HISTORY OF SEIZURE D/O. 7) HISTORY OF GENERILIZED MUSCLE WEAKNESS/SPASMS. 8) NEUTROPENIA. - Plan Plan: CONT WITH MS SUPPORTIVE CARE AND MGT CONT WITH IVF, START MECHANICAL SOFT NECTAR THICK LIQUIDS AND ADVANCE TOLERATED CONMT WITH HER CURRENT MEDS SCHEDULED STARTED ON EMPIRIC IV ABXS, PULM TOILET, PRN O2 FOLLOW SPUTUM AND URINE C/S CT OF BRAIN TODAY PT EVAL
[2018-07-06 08:49] LABS: EOSINOPHIL 8 % (0-5); LYMPHOCYTE 25 % (20-50); MONOCYTE 12 % (2-10); NEUTROPHILS 55 % (40-80)
[2018-07-06 08:50] LABS: PLATELET ESTIMATE ADEQUATE (NORMAL)
[2018-07-06] MEDS ORDERED: Escitalopram Oxalate 5 mg Tab PO SCH (09:00)
[2018-07-06] MEDS: Aspirin 81mg Chewable Tab PO SCH (09:22)
--- NOTE | 2018-07-06 09:55 | Diagnostic Imaging Report ---
CT scan of the brain without intravenous contrast HISTORY: Stroke, CVA Total DLP equals 721 CTDI equals 36.7 Exam somewhat limited due to difficulty in patient positioning. There is extensive hypodensity noted throughout the left temporal, parietal, and occipital regions of the brain consistent with encephalomalacia. No mass effect. Question extra-axial CSF. Findings consistent with surgical changes about the sella/suprasellar region. Ventricular shunt tubing extends through the left occipital region. Tip extends into the region of the medial portion of the left occipital horn. Generalized enlargement of the ventricular system along with enlargement of cerebral sulci and subarachnoid cisterns reflecting atrophy. No acute parenchymal abnormalities. No intracerebral hemorrhage. Again, no mass effect or shift of midline structures. IMPRESSION: 1. No acute abnormalities 2. Extensive surgical changes including ventricular shunt placement as noted above 3. Changes consistent with extensive encephalomalacia throughout the left temporal, parietal, and occipital regions. Extra-axial CSF cannot be excluded.
--- NOTE | 2018-07-06 10:53 | Progress Notes ---
DATE: 07/05/2018 PSYCHIATRIC PROGRESS NOTE SUBJECTIVE: Staff was spoken to. The patient is interviewed. Mood is noted to be depressed. Affect is constricted. The patient's insight is noted to be still impaired. Impulse control is noted to be poor. The patient is stating that she had all the tests done and she is glad that she is okay. The patient is presenting with depressive symptoms and hence it is decided to restart the patient with Lexapro 5 mg and follow the patient with supportive therapy. [facility]# [id number]
[2018-07-06] MEDS: Levofloxacin 500mg/100mL 500 MG/100 ML BAG IV SCH (20:38)
--- NOTE | 2018-07-07 02:46 | Progress Notes ---
DATE: 07/06/2018 PSYCHOLOGY PROGRESS NOTE SUBJECTIVE: The patient is seen and is interviewed. The patient is followed up from the Geropsychiatric unit. Case is discussed with staff. The patient presents as depressed. The patient stated that she feels she is getting better and is not as worried about her medical condition. Staff reports that the patient's impulse control continues to be a problem. The patient has poor insight into her mental illness. OBJECTIVE: Mood is depressed. Affect is constricted. Thought process shows to be confused. The patient denied any hallucinations or delusions. It is noted that the patient has poor insight into her illness. The patient has difficulty following through with staff direction. ASSESSMENT AND PLAN: The patient's depression persists. We provided cognitive behavioral therapy as well as insight-oriented and reflective listening as a therapeutic approach to reduce the patient's depression. We provided coping strategies for phase of life issues. We provided adjustment to the sudden change in her medical condition. The patient continues to have difficulty following through with her treatment. We encouraged the patient to stay compliant with all aspects of her care and treatment. We will follow up in 2 days to continue the present treatment if the patient remains admitted on the unit. [facility]# [id number] CALI
[2018-07-07 05:27] LABS: % BASOPHILS 0.8 % (0.0-2.0); % EOSINOPHILS 6.8 % (0.0-5.0); % LYMPHOCYTES 17.7 % (20.0-50.0); % MONOCYTES 11.2 % (2.0-10.0); % NEUTROPHILS 63.5 % (40.0-80.0); EOSINOPHILE ABSOLUTE 0.2 Th/cmm (0.1-0.4); HEMATOCRIT 39.6 % (41.0-60); HEMOGLOBIN 13.1 gm/dL (12-16); LYMPHOCYTE ABSOLUTE 0.6 Th/cmm (1.5-3.0); MEAN CELL VOLUME 93.7 fl (81-100); MEAN CORPUSCULAR HEMOGLOBIN 31.1 pg (27.0-31.0); MEAN CORPUSCULAR HGB CONC 33.1 pg (28.0-36.0); MEAN PLATELET VOLUME 7.6 fl; MONOCYTE ABSOLUTE 0.4 Th/cmm (0.3-1.0); NEUTROPHILE ABSOLUTE 2.3 Th/cmm (1.8-8.0); PLATELET COUNT 176 Th/cmm (150-400); RED BLOOD COUNT 4.23 Mil/cmm (3.80-5.20); RED CELL DISTRIBUTION WIDTH 12.8 % (11.5-20.0)
[2018-07-07] MEDS: D5-0.45NS 1,000 ML IV SCH (05:33)
[2018-07-07 05:38] LABS: WHITE BLOOD COUNT 3.5 Th/cmm (4.8-10.8)
[2018-07-07 06:05] LABS: ANION GAP 9.5 (7.0-16.0); BUN - UREA NITROGEN 8 mg/dL (7-25); CALCIUM SERUM 8.2 mg/dL (8.6-10.3); CARBON DIOXIDE 25.9 mEq/L (21.0-31.0); CHLORIDE 105 mEq/L (98-107); CREATININE - SERUM 0.4 mg/dL (0.6-1.2); GLUCOSE 84 mg/dL (70-105); POTASSIUM SERUM 3.4 mEq/L (3.5-5.1); SODIUM SERUM 137 mEq/L (136-145)
[2018-07-07] MEDS: Aspirin 81mg Chewable Tab PO SCH (08:42)
--- NOTE | 2018-07-07 09:16 | Diagnostic Imaging Report ---
Portable chest x-ray HISTORY: Shortness of breath Compared to prior exam of July 05, 2018, no focal pulmonary processes are seen. No other changes. IMPRESSION: 1. No interval change in the cardiopulmonary status.
[2018-07-07] MEDS ORDERED: Potassium Chloride 20 mEq ER Tab PO ONE (10:33)
[2018-07-07] MEDS: Pantoprazole 40 mg/Packet PO SCH (12:31)
--- NOTE | 2018-07-07 17:43 | Discharge Summary ---
DATE OF DISCHARGE: 07/07/2018 ADMITTING DIAGNOSES: 1. Dysphagia with possible aspiration. 2. Pulmonary congestion -- rule out pneumonia including aspiration pneumonia versus bronchitis. 3. History of cerebrovascular accident with late findings including dysphagia, dysarthria/aphagia, right hemiparesis with unknown baseline. 4. 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 5. Recent history of psych decompensation. SECONDARY DIAGNOSES: 1. Cerebrovascular accident with late findings. 2. History of seizure disorder. 3. History of generalized muscle weakness with spasms. 4. 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 5. Hypertension. DISCHARGE DIAGNOSES: 1. Dysphagia with no evidence of aspiration - clinically stable, tolerating current diet well. 2. Oropharyngeal dysphagia. 4. Congestion -- clinically improved. No evidence of aspiration pneumonia or bronchitis. 5. Neutropenia. 6. Psych decompensation with depression. CONSULTANTS: Dr. Parker, Psychiatry. MAJOR PROCEDURES: Barium swallow study showed moderate delay of pharyngeal dysphagia characterized by labial spillages on the right side of all boluses, prolonged oral prep, mastication and holding of oral bolus. Moderate delayed pharyngeal swallow response. CT of head that was done on 07/05 and barium swallow on 07/06/2018. She underwent a CT of the head: 1. No acute abnormalities. 2. Extensive surgical changes including ventricular shunt placement. 3. Changes consistent with extensive encephalomalacia throughout the left temporal, parietal, and occipital regions. BRIEF HOSPITAL COURSE: This is an 83-year-old female admitted to [facility] on 06/30/2018 for agitation, depression, and psych decompensation. The patient was noted to have difficulty with her meals and also she had noticeable congestion about a day after being admitted to the psych owen. Per nursing staff, her medications were being withheld given the dysphagia that was very noticeable at that time. Bedside ST evaluation was done, which reported noticeable dysphagia with high risk of aspiration. Given that the above-mentioned findings, the patient was discharged from the [facility] and was transferred to the medical/surgical floor where she was placed on aspiration precautions, IV fluids and was made n.p.o. She underwent the above-mentioned barium swallow eval and she was placed on a mechanical soft diet with thickened liquids, which she has been able to tolerate well with no signs or symptoms of aspiration. As far as the congestion goes, an x-ray was obtained post admission showing no evidence of acute pulmonary process. She did receive pulmonary supportive care, empiric IV antibiotics and was suction as needed by RT with improvement of her congestion. Her vital signs have remained stable throughout her hospital stay and her labs have remained stable as well through her hospital stay. MEDICATIONS ON DISCHARGE: Tylenol 650 q.6 p.r.n. fevers, DuoNeb q.4 hours p.r.n. for shortness of breath, amlodipine 10 every day, aspirin 81 every day, Dulcolax per rectum 10 mg every day p.r.n. for severe constipation, Lexapro 10 mg every day, Levaquin 500 mg p.o. every day x 10 days, magnesium hydroxide 30 mL at bedtime p.r.n. for constipation, Protonix 40 mg p.o. every day, zolpidem 5 mg at bedtime p.r.n. At this point, the patient's pending discharge and with readmission to the Geropsych o[facility] given her ongoing chronic psych issues. Awaiting possible transfer. [facility]# [id number] MTDD
--- NOTE | 2018-07-08 05:32 | Progress Notes ---
DATE: 07/07/2018 PSYCHIATRIC PROGRESS NOTE SUBJECTIVE: Staff was spoken to. The patient is interviewed. Mood is noted to be anxious. Affect is constricted. Insight and judgment are noted to be still improving. Impulse control seems to be fair. The patient is not presenting with any threats to harm self or others today. ASSESSMENT: The patient is still depressed. PLAN: To continue the patient with supportive therapy and followup. [facility]# [id number]
[2018-07-08 06:27] LABS: HEMATOCRIT 44.3 % (41.0-60); HEMOGLOBIN 14.8 gm/dL (12-16); MEAN CELL VOLUME 92.6 fl (81-100); MEAN CORPUSCULAR HGB CONC 33.5 pg (28.0-36.0); MEAN PLATELET VOLUME 7.8 fl; PLATELET COUNT 203 Th/cmm (150-400); RED BLOOD COUNT 4.78 Mil/cmm (3.80-5.20); RED CELL DISTRIBUTION WIDTH 12.8 % (11.5-20.0)
[2018-07-08 06:41] LABS: WHITE BLOOD COUNT 3.9 Th/cmm (4.8-10.8)
[2018-07-08 06:43] LABS: ANION GAP 12.7 (7.0-16.0); BUN - UREA NITROGEN 7 mg/dL (7-25); CALCIUM SERUM 8.6 mg/dL (8.6-10.3); CARBON DIOXIDE 22.4 mEq/L (21.0-31.0); CHLORIDE 107 mEq/L (98-107); CREATININE - SERUM 0.4 mg/dL (0.6-1.2); GLUCOSE 79 mg/dL (70-105); POTASSIUM SERUM 4.1 mEq/L (3.5-5.1); SODIUM SERUM 138 mEq/L (136-145)
[2018-07-08 08:55] LABS: EOSINOPHIL 6 % (0-5); LYMPHOCYTE 25 % (20-50); MONOCYTE 10 % (2-10); NEUTROPHILS 59 % (40-80); PLATELET ESTIMATE ADEQUATE (NORMAL)
[2018-07-08] MEDS ORDERED: Probiotic Screen MC PRN (09:11)
--- NOTE | 2018-07-08 09:26 | Internal Medicine Prog Note ---
Internal Medicine Subjective - Subjective Service Date: 07/08/18 (NO AVENTS, COMFORTABLE. AWAITING PLACEMENT.) Patient seen and examined:: without staff Patient is:: awake Patient Complaints of:: congestion Per staff patient has:: no adverse event (has not been fed yet) Internal Medicine Objective - Results Result Diagrams: 07/08/18 05:50 07/08/18 05:50 Recent Labs: Laboratory Last Values WBC 3.9 Th/cmm (4.8-10.8) L 07/08/18 05:50 RBC 4.78 Mil/cmm (3.80-5.20) 07/08/18 05:50 Hgb 14.8 gm/dL (12-16) 07/08/18 05:50 Hct 44.3 % (41.0-60) 07/08/18 05:50 MCV 92.6 fl (81-100) 07/08/18 05:50 MCH 31.0 pg (27.0-31.0) 07/08/18 05:50 MCHC Differential 33.5 pg (28.0-36.0) 07/08/18 05:50 RDW 12.8 % (11.5-20.0) 07/08/18 05:50 Plt Count 203 Th/cmm (150-400) 07/08/18 05:50 MPV 7.8 fl 07/08/18 05:50 Add Manual Diff YES 07/08/18 05:50 Neutrophils % 63.5 % (40.0-80.0) 07/07/18 05:15 Lymphocytes % 17.7 % (20.0-50.0) L 07/07/18 05:15 Monocytes % 11.2 % (2.0-10.0) H 07/07/18 05:15 Eosinophils % 6.8 % (0.0-5.0) H 07/07/18 05:15 Basophils % 0.8 % (0.0-2.0) 07/07/18 05:15 Neutrophils (Manual) 59 % (40-80) 07/08/18 05:50 Lymphocytes 25 % (20-50) 07/08/18 05:50 Monocytes 10 % (2-10) 07/08/18 05:50 Eosinophils 6 % (0-5) H 07/08/18 05:50 Platelet Estimate ADEQUATE (NORMAL) 07/08/18 05:50 Sodium 138 mEq/L (136-145) 07/08/18 05:50 Potassium 4.1 mEq/L (3.5-5.1) 07/08/18 05:50 Chloride 107 mEq/L (98-107) 07/08/18 05:50 Carbon Dioxide 22.4 mEq/L (21.0-31.0) 07/08/18 05:50 Anion Gap 12.7 (7.0-16.0) 07/08/18 05:50 BUN 7 mg/dL (7-25) 07/08/18 05:50 Creatinine 0.4 mg/dL (0.6-1.2) L 07/08/18 05:50 Est GFR ( Amer) [facility] 07/08/18 05:50 Est GFR (Non-Af Amer) [facility] 07/08/18 05:50 BUN/Creatinine Ratio 17.5 07/08/18 05:50 Glucose 79 mg/dL (70-105) 07/08/18 05:50 Calcium 8.6 mg/dL (8.6-10.3) 07/08/18 05:50 Magnesium 2.0 mg/dL (1.9-2.7) 07/06/18 05:20 Total Bilirubin 0.6 mg/dL (0.3-1.0) 07/05/18 04:45 AST 10 U/L (13-39) L 07/05/18 04:45 ALT 8 U/L (7-52) 07/05/18 04:45 Alkaline Phosphatase 53 U/L (34-104) 07/05/18 04:45 Ammonia 42 umol/L (16-53) 07/05/18 04:45 Total Protein 6.2 gm/dL (6.0-8.3) 07/05/18 04:45 Albumin 3.6 gm/dL (3.7-5.3) L 07/05/18 04:45 Globulin 2.6 gm/dL 07/05/18 04:45 Albumin/Globulin Ratio 1.4 (1.0-1.8) 07/05/18 04:45 TSH 1.99 uIU/ml (0.34-5.60) 07/05/18 04:45 Urine Source CLEAN C 07/05/18 02:44 Urine Color YELLOW 07/05/18 02:44 Urine Clarity CLOUDY (CLEAR) H 07/05/18 02:44 Urine pH 5.5 (4.6 - 8.0) 07/05/18 02:44 Ur Specific [place] >= 1.030 (1.005-1.030) 07/05/18 02:44 Urine Protein TRACE mg/dL (NEGATIVE) 07/05/18 02:44 Urine Glucose (UA) NEGATIVE mg/dL (NEGATIVE) 07/05/18 02:44 Urine Ketones NEGATIVE mg/dL (NEGATIVE) 07/05/18 02:44 Urine Blood MODERATE (NEGATIVE) H 07/05/18 02:44 Urine Nitrate POSITIVE (NEGATIVE) H 07/05/18 02:44 Urine Bilirubin NEGATIVE (NEGATIVE) 07/05/18 02:44 Urine Urobilinogen 0.2 E.U./dL (0.2 - 1.0) 07/05/18 02:44 Ur Leukocyte Esterase MODERATE (NEGATIVE) H 07/05/18 02:44 Urine RBC 2-5 /hpf (0-5) 07/05/18 02:44 Urine WBC 10-25 /hpf (0-5) H 07/05/18 02:44 Ur Epithelial Cells MODERATE /lpf (FEW) 07/05/18 02:44 Urine Bacteria MANY /hpf (NONE SEEN) H 07/05/18 02:44 - Physical Exam Vitals and I&O: Vital Signs Temp 96.3 F 07/08/18 08:46 Pulse 60 07/08/18 08:46 Resp 18 07/08/18 08:46 BP 173/53 07/08/18 08:46 Pulse Ox 92 07/08/18 08:46 Intake & Output 07/07/18 07/08/18 07/08/18 18:59 06:59 18:59 Intake Total 300 Output Total 2 Balance 300 -2 Weight (lbs) 47.627 kg 44.77 kg Intake: Oral 300 Output: Urine 2 Other: # Voids 2 # Bowel Movements 0 Weight Source Bedscale Bedscale Active Medications: Current Medications Acetaminophen (Tylenol) 650 mg PO Q6H PRN PRN Reason: Pain or Fever >101 Stop: 09/03/18 21:21 Albuterol/Ipratropium (Duoneb Neb) 3 ml HHN Q4HRT PRN PRN Reason: Wheezing Stop: 09/02/18 18:26 Amlodipine Besylate (Norvasc) 10 mg PO DAILY [facility] Stop: 09/04/18 08:59 Last Admin: 07/07/18 08:37 Dose: Not Given Aspirin (Aspirin Chewable) 81 mg PO DAILY [facility] Stop: 09/04/18 08:59 Last Admin: 07/07/18 08:42 Dose: 81 mg Bisacodyl (Dulcolax 10 Mg Supp) 10 mg RC DAILY PRN PRN Reason: Constipation Stop: 09/03/18 21:21 Escitalopram Oxalate (Lexapro) 10 mg PO DAILY [facility]; Protocol Stop: 09/04/18 08:59 Last Admin: 07/07/18 08:42 Dose: 10 mg Lactobacillus Rhamnosus (Culturelle 15b) 1 each PO DAILY [facility] Stop: 09/06/18 11:59 Levofloxacin (Levaquin) 250 mg PO DAILY [facility] Stop: 09/05/18 10:59 Lorazepam (Ativan) 0.5 mg PO Q4H PRN; Protocol PRN Reason: Anxiety Stop: 09/03/18 21:21 Magnesium Hydroxide (Milk Of Magnesia) 30 ml PO HS PRN PRN Reason: Constipation Stop: 09/03/18 21:23 Miscellaneous (Clinical Monitoring) 1 ea MC DAILY PRN PRN Reason: RENAL DOSE LEVAQUIN Stop: 09/02/18 19:17 Miscellaneous (Probiotic Screen) 1 ea MC PRN PRN PRN Reason: PROTOCOL Stop: 09/06/18 09:10 Pantoprazole Sodium (Protonix) 40 mg PO DAILY [facility] Stop: 09/05/18 10:59 Last Admin: 07/07/18 12:31 Dose: 40 mg Zolpidem Tartrate (Ambien) 5 mg PO HS PRN PRN Reason: Insomnia Stop: 09/03/18 21:23 Last Admin: 07/06/18 00:21 Dose: 5 mg General: congested, alert, thin, NAD HEENT: NC/AT, PERRLA, EOMI Neck: Supple, No JVD, No LAD Lungs: congested, rales, ronchi Cardiovascular: RRR, Normal S1, Normal S2, without murmur Abdomen: soft, non-tender, non-distended, positive bowel sound Extremities: clear, erythema, redness Neurological: no change (expressive aphasia) Internal Medicine Assmt/Plan - Assessment Assessment: 1) DYSPAHGIA WITH PHARYNGEAL DYSPHAGIA (NO EVIDENCE OF ASPIRATION)-clinically stable, ortega dietary recs. 2) CONGESTION-?BRONCHITIS VS EARLY PNA-clinically stable/cxr remains clear. Clinically improved. 3) UTI-follow c/s. 4) HISTORY OF CVA WITH LATE FINDINGS (dysphagia, rhp, expressive aphasia). 5) LIKELY VASCULAR DEMENTIA. 6) HISTORY OF SEIZURE D/O. 7) HISTORY OF GENERILIZED MUSCLE WEAKNESS/SPASMS. 8) NEUTROPENIA. 9) DISPO-SNF placement. - Plan Plan: CONT WITH MS SUPPORTIVE CARE AND MGT CONT WITH IVF, START MECHANICAL SOFT NECTAR THICK LIQUIDS AND ADVANCE TOLERATED CONMT WITH HER CURRENT MEDS SCHEDULED STARTED ON EMPIRIC IV ABXS, PULM TOILET, PRN O2 FOLLOW SPUTUM AND URINE C/S CT OF BRAIN TODAY PT EVAL
[2018-07-08] MEDS: Aspirin 81mg Chewable Tab PO SCH (09:52)
[2018-07-08] MEDS: Pantoprazole 40 mg/Packet PO SCH (09:52)
[2018-07-08] MEDS ORDERED: Lactobacillus Rhamnosus GG 15 Billion CFU CAP.SPRINK PO SCH (12:00)
--- NOTE | 2018-07-09 04:29 | Progress Notes ---
DATE: 07/08/2018 PSYCHOLOGY PROGRESS NOTE SUBJECTIVE: The patient is seen and examined interviewed. Case is discussed with staff. The patient presents as anxious. The staff reports the patient has been compliant with her care and treatment. The patient admits that she is still depressed about her overall condition. The patient denied any hallucinations or delusions. Impulse control seems to be improving. OBJECTIVE: Mood is anxious and depressed. Affect is broad. Thought process shows to be confused. She denied any suicidal ideation, plan or intention. She denied nay hallucinations or delusions. The patient's behavior has been more goal oriented. ASSESSMENT AND PLAN: The patient's depression persists. Impulsivity is lessening. We provide supportive therapy to include positive reinforcement for the patient to stay compliant with her care and treatment. We provided coping strategies for phase of life issues. We provided adjustment to the patient's current medical condition and coping strategies for the same. No followup is indicated as the patient may be discharging in the next 2 days. [facility]# [id number] CALI
== END 2018-07-08 16:00 | DRG 391 ==
LOC: MSI 17:42
PROVIDERS: ADMIT Internal Medicine; ATTEND Internal Medicine
DX: R13.12 Dysphagia, oropharyngeal phase (principal); R53.2 Functional quadriplegia; N39.0 Urinary tract infection, site not specified; I69.951 Hemiplegia and hemiparesis following unspecified cerebrovascular disease affecting right dominant side; F01.50 Vascular dementia, unspecified severity, without behavioral disturbance, psychotic disturbance, mood disturbance, and anxiety; D70.9 Neutropenia, unspecified; G40.909 Epilepsy, unspecified, not intractable, without status epilepticus; F29 Unspecified psychosis not due to a substance or known physiological condition
CPT/HCPCS: 36415-UA; 70450-TC; 71045-TC; 74220-TC; 80048-TC; 80053-TC; 81001-TC; 82140-TC; 83735-TC; 84443-TC; 85007-TC; 85025-TC; 87070; 87086-90; 92611; 94760; C9113; J1956; Z7610

== ENCOUNTER 2018-12-21 23:09 | Inpatient (IN) | payer MEDICARE ==
[2018-12-22 06:39] VITALS: BP 171/66
[2018-12-22] MEDS ORDERED: Magnesium Hydroxide (MOM) 30 mL UDC PO PRN (06:40)
[2018-12-22] MEDS ORDERED: Maalox 30 mL Cup PO PRN (06:40)
[2018-12-22] MEDS ORDERED: Albuterol Nebulizer 2.5mg/3mL HHN PRN (15:06)
--- NOTE | 2018-12-22 16:19 | History & Physical ---
ADMIT DATE: 12/22/2018 REASON FOR CONSULTATION: Medical management, previously the patient admitted to inpatient unit. HISTORY OF PRESENT ILLNESS: This is an 83-year-old female with history of hypertension, dementia, depression, GERD, history of stroke, admitted from nursing facility secondary to above complaint under Dr. Schwarz. The patient is a poor historian. No adverse events per staff. PAST MEDICAL HISTORY: As mentioned in history of present illness. PAST SURGICAL HISTORY: Unable to obtain from the patient. ALLERGIES: No known drug allergies according to the intake. MEDICATIONS: Lexapro, Ativan, dementia, albumin, Tylenol, Norvasc, aspirin, multivitamin, lactobacillus, Levaquin. FAMILY HISTORY: Noncontributory. SOCIAL HISTORY: The patient is a [facility] patient requiring 24-hour total care. REVIEW OF SYSTEMS: This is limited secondary to pain, patient's current mental state. We will try to obtain more detailed review of system at a later date by talking to family members. There is a Ellis Michael from [place] #[phone], who is a conservator. We will also try to get information from nursing staff at ____ [phone]. PHYSICAL EXAMINATION: VITAL SIGNS: Blood pressure 166/77, respirations 20, pulse 69. GENERAL: Elderly female, chronically ill. NECK: Supple. No mass. LUNGS: Equal breath sounds, few rhonchi. HEART: Regular rate and rhythm with a systolic ejection murmur. ABDOMEN: Soft, globular. Positive excoriation. NEUROLOGIC: Limited. EXTREMITIES: Positive for contracture, right upper extremity. LABORATORY DATA: Significant for ____ 3.3. UA showed many wbc's. ASSESSMENT AND PLAN: Hypertension, urinary tract infection, dementia, low albumin, depression, gastroesophageal reflux disease, history of stroke. Continue the patient on fall precaution. Continue on current antihypertensive medication. We will make some adjustment, continue p.o. antibiotic. We will refer the patient adequate nutritional support. We will adjust the patient and continue on H2 dee. We will continue to monitor the patient closely. JOB# [id number]
--- NOTE | 2018-12-22 22:09 | Psychiatric Evaluation ---
DATE OF SERVICE: 12/22/2018 PSYCHIATRIC INITIAL EVALUATION AND MENTAL STATUS EXAMINATION AGE: 83. SEX: Female. PHYSICIAN: Dr. Schwarz. CHIEF COMPLAINT: Severe depression and confusion. HISTORY OF PRESENT ILLNESS: The patient is an 83-year-old female with history of depression. The patient lives in [place] [facility]. The patient has been severely depressed and has been withdrawn and confused. Chart reviewed and the patient interviewed and discussed the patient's condition with the staff and reviewed records and labs. The patient is confused. She hardly answers any of my questions, but she has sad affect. The patient also was not able to make any sense and she did not communicate at all because of her confusion and her depression. The patient did not report any thoughts of suicide, but she has been severely depressed and guarded. PAST PSYCHIATRIC HISTORY: The patient has history of depression and previous hospitalizations in [facility]. PAST MEDICAL HISTORY: The patient has hypertension as well as urinary tract infection and gastroesophageal reflux disease. SOCIAL HISTORY: The patient lives in [place] [facility]. No known alcohol or drug use. No other information known at this time. ALLERGIES: No known allergies. MENTAL STATUS EXAMINATION: The patient appears her stated age. Sad affect. In a depressed mood. The patient's thought processes are disorganized and hardly answers questions, but she is mumbling to herself. The patient did not answer any questions regarding suicide or homicide, but she at the same time in a depressed mood. The patient did not seem to be hallucinating or having any psychotic hopes or behavior. The patient is alert, but seems to be disoriented to place, person, and situation. The patient has impaired memory, immediate, recent and remote and she was not even able to remember her date and kept staring at me when I asked her about her date. Poor insight. Judgment is fair. ASSESSMENT: PRIMARY DIAGNOSIS: Major depression, severe, recurrent, without psychotic features. SECONDARY DIAGNOSIS: Dementia, severe, without psychosis or behavioral. MEDICAL DIAGNOSES: Hypertension. Gastroesophageal reflux disease. TREATMENT PLAN: We will start the patient on Lexapro. We will monitor her behavior closely and work on her ineffective coping. ESTIMATED LENGTH OF STAY: 5-7 days. PATIENT'S STRENGTHS AND WEAKNESSES: The patient's strengths are not clear at this time except that she has support from staff in [place] and they want her back there. Weaknesses are her ineffective coping. AFTER DISCHARGE PLAN: The patient will return to [place] [facility] and outpatient treatment and followup will be done there. [facility]# [id number]
[2018-12-23] MEDS: Aspirin 81mg Chewable Tab PO SCH (10:49)
[2018-12-23] MEDS: Lactobacillus Rhamnosus GG 15 Billion CFU CAP.SPRINK PO SCH (10:49)
--- NOTE | 2018-12-23 12:49 | Internal Medicine Prog Note ---
Internal Medicine Subjective - Subjective Patient seen and examined:: with staff, chart reviewed Patient is:: awake, verbal, non-interactive, in wheelchair, confused Per staff patient has:: no adverse event, no episodes of fall, poor appetite Internal Medicine Objective - Physical Exam Vitals and I&O: Vital Signs Temp 97.5 F 12/23/18 05:31 Pulse 66 12/23/18 10:49 Resp 18 12/23/18 05:31 BP 118/56 12/23/18 10:49 Pulse Ox 96 12/23/18 05:31 Intake & Output 12/22/18 12/23/18 12/23/18 18:59 06:59 18:59 Intake Total 900 480 Balance 900 480 Intake: Oral 900 480 Other: # Voids 1 2 # Bowel Movements 0 1 Stool Characteristics Soft Soft Active Medications: Current Medications Acetaminophen (Tylenol) 650 mg PO Q4HR PRN PRN Reason: Moderate Pain (Scale 4-6) Stop: 02/20/19 06:39 Acetaminophen (Tylenol) 650 mg PO Q6HR PRN PRN Reason: Mild Pain (Scale 1-3) Stop: 02/20/19 15:05 Acetaminophen (Tylenol) 650 mg PO Q6H PRN PRN Reason: TEMP ABOVE 101 Stop: 02/20/19 16:03 Al Hydrox/Mg Hydrox/Simethicone (Maalox) 30 ml PO Q4HR PRN PRN Reason: GI DISTRESS Stop: 02/20/19 06:39 Albuterol Sulfate (Albuterol 2.5mg/3ml Neb Ud) 2.5 mg HHN Q6HRT PRN PRN Reason: Shortness of Breath Stop: 02/20/19 15:05 Amlodipine Besylate (Norvasc) 10 mg PO DAILY [facility] Stop: 02/21/19 08:59 Last Admin: 12/23/18 10:49 Dose: 10 mg Aspirin (Aspirin Chewable) 81 mg PO DAILY [facility] Stop: 02/21/19 08:59 Last Admin: 12/23/18 10:49 Dose: 81 mg Bisacodyl (Dulcolax 10 Mg Supp) 10 mg RC DAILY PRN PRN Reason: Constipation Stop: 02/20/19 15:05 Escitalopram Oxalate (Lexapro) 10 mg PO DAILY [facility]; Protocol Stop: 02/20/19 08:59 Last Admin: 12/23/18 10:49 Dose: 10 mg Famotidine (Pepcid) 20 mg PO QAM [facility] Stop: 02/21/19 08:59 Last Admin: 12/23/18 10:49 Dose: 20 mg Lactobacillus Rhamnosus (Culturelle 15b) 1 each PO DAILY [facility] Stop: 02/21/19 08:59 Last Admin: 12/23/18 10:49 Dose: 1 each Levofloxacin (Levaquin) 250 mg PO DAILY [facility] Stop: 12/28/18 08:59 Last Admin: 12/23/18 10:49 Dose: 250 mg Lorazepam (Ativan) 0.5 mg PO Q4HR PRN; Protocol PRN Reason: Anxiety Stop: 01/21/19 06:39 Magnesium Hydroxide (Milk Of Magnesia) 30 ml PO HS PRN PRN Reason: Constipation Zolpidem Tartrate (Ambien) 5 mg PO HS PRN PRN Reason: Insomnia Stop: 02/20/19 06:39 General: demented HEENT: NC/AT, PERRLA, EOMI Neck: Supple, No JVD Lungs: CTAB Cardiovascular: RRR, Normal S1, Normal S2, with murmur Abdomen: soft, non-tender, thin, positive bowel sound Extremities: excoriation, contracture Neurological: no change Internal Medicine Assmt/Plan - Assessment Assessment: ASSESSMENT AND PLAN: Hypertension, urinary tract infection, dementia, low albumin, depression, gastroesophageal reflux disease, history of stroke. - Plan Plan: PLAN: Continue the patient on fall precaution. Continue on current antihypertensive medication. We will make some adjustment, continue p.o. antibiotic. We will refer the patient adequate nutritional support. We will adjust the patient and continue on H2 dee. We will continue to monitor the patient closely. Nutritional Asmnt/Malnutr-PDOC - Dietary Evaluation Malnutrition Findings (Please click <Entered> for more info): Nutritional Asmnt/Malnutrition Start: 12/22/18 16: 28 Text: Status: Complete Freq: Protocol: Document 12/22/18 16:28 NICKO (Rec: 12/22/18 16:31 NICKO [email or web address]) Nutritional Asmnt/Malnutrition Patient General Information Nutritional Screening Consult Diagnosis Psychosis Pertinent Medical Hx/Surgical Hx No current Reports Subjective Information Consult: New Admission Pt is a 83-year-old female admitted on 12/22 d/t psychosis. Spoke with Nurse Vito, pt ate 50% breakfast and lunch today. Nurse stated MD ordered Ensure Enlive TID, will monitor order update. Nurse states pt has no wounds, skin WNL. Anthropometrics HT: 53 WT: 105 LB (73.18 kg) BMI: 18.60 (Normal) GI/ Skin Integrity GI: Not noted BM: Not Noted Skin: WNL Lee: 14 Diet Order: Pureed, [place] Thick Liquids Estimated Energy Needs: ( Geriatric, CBW) 5437-3810 kcals (25-30 kcals/ kg) 73-88g Pro (1.0-1.2 g/kg) 7121-0079 ml (25-30 ml/kg) Current Diet Order/ Nutrition Support Pureed, [place] Thick Liquids Pertinent Medications Maalox (PRN), MOM (PRN) Pertinent Labs 12/21: Bun 33, Glucose 107, Alb 3.3 Nutritional Hx/Data Height 1.6 m Height (Calculated Centimeters) 160.0 Current Weight (lbs) 47.627 kg Weight (Calculated Kilograms) 47.6 Weight (Calculated Grams) 14856.2 [place] Body Weight 115 LB (52.27 kg) % [place] Body Weight 91 Body Mass Index (BMI) 18.6 Weight Status Approriate GI Symptoms Last BM Not Noted Skin Integrity/Comment: Skin: WNL Lee: 14 Current %PO Fair (50-74%) Estimated Nutritional Goals BEE in Kcals: Using Current wt Calories/Kcals/Kg 25-30 Kcals Calculated 9272-1069 Protein: Using Current wt Protein g/k.0-1.2 Protein Calculated 73-88 Fluid: ml 4011-1238 ml (25-30 ml/kg) Nutritional Problem 1. Problem Problem No nutrition diagnosis at this time. Etiology N/A Signs/Symptoms: N/A Malnutrition Related to Morbid Obesity Malnutrition related to morbid obesity No Intervention/Recommendation Comments 1. Continue with Pureed, [place] Thick Liquids diet as ordered. Expected Outcomes/Goals Expected Outcomes/Goals 1. PO intake to meet 75% of nutritional needs. 2. Monitor PO intake, wt, nutrition related labs to trend WNL, and skin integrity. 3. F/U as low risk in 7-10 days, 12/29-01/01
--- NOTE | 2018-12-24 02:05 | Progress Notes ---
DATE: 12/23/2018 SUBJECTIVE: Chart reviewed and the patient interviewed. Also discussed the patient's condition with the staff and reviewed records and labs. The patient still had periods of agitation, but at the same time is still severely depressed and confused. The patient also is withdrawn and guarded. She still needs lots of redirections. She also is still having episodes of anger and restlessness, but no major behavioral issues. ASSESSMENT: The patient is still depressed and agitated. TREATMENT PLAN: The patient started on Lexapro. Continue same dose and continue to follow up closely. JOB# [id number]
[2018-12-24] MEDS: Aspirin 81mg Chewable Tab PO SCH (08:24)
[2018-12-24] MEDS: Lactobacillus Rhamnosus GG 15 Billion CFU CAP.SPRINK PO SCH (08:25)
--- NOTE | 2018-12-24 10:21 | Internal Medicine Prog Note ---
Internal Medicine Subjective - Subjective Patient seen and examined:: with staff, chart reviewed Patient is:: awake, verbal, non-interactive, in wheelchair, confused Per staff patient has:: no adverse event, no episodes of fall, poor appetite Internal Medicine Objective - Physical Exam Vitals and I&O: Vital Signs Temp 97.3 F 12/24/18 05:24 Pulse 72 12/24/18 08:37 Resp 18 12/24/18 05:24 BP 123/50 12/24/18 08:37 Pulse Ox 92 12/24/18 05:24 Intake & Output 12/23/18 12/24/18 12/24/18 18:59 06:59 18:59 Intake Total 240 Balance 240 Intake: Oral 240 Other: # Voids 2 # Bowel Movements 0 Stool Characteristics Soft Soft Active Medications: Current Medications Acetaminophen (Tylenol) 650 mg PO Q4HR PRN PRN Reason: Moderate Pain (Scale 4-6) Stop: 02/20/19 06:39 Acetaminophen (Tylenol) 650 mg PO Q6HR PRN PRN Reason: Mild Pain (Scale 1-3) Stop: 02/20/19 15:05 Acetaminophen (Tylenol) 650 mg PO Q6H PRN PRN Reason: TEMP ABOVE 101 Stop: 02/20/19 16:03 Al Hydrox/Mg Hydrox/Simethicone (Maalox) 30 ml PO Q4HR PRN PRN Reason: GI DISTRESS Stop: 02/20/19 06:39 Albuterol Sulfate (Albuterol 2.5mg/3ml Neb Ud) 2.5 mg HHN Q6HRT PRN PRN Reason: Shortness of Breath Stop: 02/20/19 15:05 Amlodipine Besylate (Norvasc) 10 mg PO DAILY SIMON Stop: 02/21/19 08:59 Last Admin: 12/24/18 08:37 Dose: 10 mg Aspirin (Aspirin Chewable) 81 mg PO DAILY SIMON Stop: 02/21/19 08:59 Last Admin: 12/24/18 08:24 Dose: 81 mg Bisacodyl (Dulcolax 10 Mg Supp) 10 mg RC DAILY PRN PRN Reason: Constipation Stop: 02/20/19 15:05 Escitalopram Oxalate (Lexapro) 10 mg PO DAILY SIMON; Protocol Stop: 02/20/19 08:59 Last Admin: 12/24/18 08:24 Dose: 10 mg Famotidine (Pepcid) 20 mg PO QAM SIMON Stop: 02/21/19 08:59 Last Admin: 12/24/18 08:24 Dose: 20 mg Lactobacillus Rhamnosus (Culturelle 15b) 1 each PO DAILY SIMON Stop: 02/21/19 08:59 Last Admin: 12/24/18 08:25 Dose: 1 each Levofloxacin (Levaquin) 250 mg PO DAILY SIMON Stop: 12/28/18 08:59 Last Admin: 12/24/18 08:24 Dose: 250 mg Lorazepam (Ativan) 0.5 mg PO Q4HR PRN; Protocol PRN Reason: Anxiety Stop: 01/21/19 06:39 Magnesium Hydroxide (Milk Of Magnesia) 30 ml PO HS PRN PRN Reason: Constipation Zolpidem Tartrate (Ambien) 5 mg PO HS PRN PRN Reason: Insomnia Stop: 02/20/19 06:39 General: demented HEENT: NC/AT, PERRLA, EOMI Neck: Supple, No JVD Lungs: CTAB Cardiovascular: RRR, Normal S1, Normal S2, with murmur Abdomen: soft, non-tender, thin, positive bowel sound Extremities: excoriation, contracture Neurological: no change Internal Medicine Assmt/Plan - Assessment Assessment: ASSESSMENT AND PLAN: Hypertension, urinary tract infection, dementia, low albumin, depression, gastroesophageal reflux disease, history of stroke. - Plan Plan: PLAN: Continue the patient on fall precaution. Continue on current antihypertensive medication. We will make some adjustment, continue p.o. antibiotic. We will refer the patient adequate nutritional support. We will adjust the patient and continue on H2 dee. We will continue to monitor the patient closely. Nutritional Asmnt/Malnutr-PDOC - Dietary Evaluation Malnutrition Findings (Please click <Entered> for more info): Nutritional Asmnt/Malnutrition Start: 12/22/18 16: 28 Text: Status: Complete Freq: Protocol: Document 12/22/18 16:28 NICKO (Rec: 12/22/18 16:31 NICKO [email or web address]) Nutritional Asmnt/Malnutrition Patient General Information Nutritional Screening Consult Diagnosis Psychosis Pertinent Medical Hx/Surgical Hx No current Reports Subjective Information Consult: New Admission Pt is a 83-year-old female admitted on 12/22 d/t psychosis. Spoke with Nurse Vito, pt ate 50% breakfast and lunch today. Nurse stated MD ordered Ensure Enlive TID, will monitor order update. Nurse states pt has no wounds, skin WNL. Anthropometrics HT: 53 WT: 105 LB (73.18 kg) BMI: 18.60 (Normal) GI/ Skin Integrity GI: Not noted BM: Not Noted Skin: WNL Lee: 14 Diet Order: Pureed, [place] Thick Liquids Estimated Energy Needs: ( Geriatric, CBW) 8386-9172 kcals (25-30 kcals/ kg) 73-88g Pro (1.0-1.2 g/kg) 8876-4910 ml (25-30 ml/kg) Current Diet Order/ Nutrition Support Pureed, [place] Thick Liquids Pertinent Medications Maalox (PRN), MOM (PRN) Pertinent Labs 12/21: Bun 33, Glucose 107, Alb 3.3 Nutritional Hx/Data Height 1.6 m Height (Calculated Centimeters) 160.0 Current Weight (lbs) 47.627 kg Weight (Calculated Kilograms) 47.6 Weight (Calculated Grams) 81551.2 [place] Body Weight 115 LB (52.27 kg) % [place] Body Weight 91 Body Mass Index (BMI) 18.6 Weight Status Approriate GI Symptoms Last BM Not Noted Skin Integrity/Comment: Skin: WNL Lee: 14 Current %PO Fair (50-74%) Estimated Nutritional Goals BEE in Kcals: Using Current wt Calories/Kcals/Kg 25-30 Kcals Calculated 7724-9399 Protein: Using Current wt Protein g/k.0-1.2 Protein Calculated 73-88 Fluid: ml 5373-4008 ml (25-30 ml/kg) Nutritional Problem 1. Problem Problem No nutrition diagnosis at this time. Etiology N/A Signs/Symptoms: N/A Malnutrition Related to Morbid Obesity Malnutrition related to morbid obesity No Intervention/Recommendation Comments 1. Continue with Pureed, [place] Thick Liquids diet as ordered. Expected Outcomes/Goals Expected Outcomes/Goals 1. PO intake to meet 75% of nutritional needs. 2. Monitor PO intake, wt, nutrition related labs to trend WNL, and skin integrity. 3. F/U as low risk in 7-10 days, 12/29-01/01
--- NOTE | 2018-12-24 18:51 | Progress Notes ---
DATE: 12/24/2018 SUBJECTIVE: Chart reviewed and the patient interviewed. Also, discussed the patient's condition with the staff and reviewed records and labs. The patient is still confused and she is still not communicative and has difficulty expressing herself or making her needs known. The patient also is still confused and forgetful and has disorganized thoughts. She also seems to be depressed. Otherwise, the patient is compliant with taking her medication. The patient diagnosed with urinary tract infection and started on Levaquin. She also is still taking Lexapro 10 mg every day with no side effects. ASSESSMENT: The patient is still confused and depressed. TREATMENT PLAN: Continue monitoring her behavior and her condition closely and continue current medications. Also, monitoring urinary tract infection. [facility]# [id number]
[2018-12-25] MEDS: Aspirin 81mg Chewable Tab PO SCH (09:01)
[2018-12-25] MEDS: Lactobacillus Rhamnosus GG 15 Billion CFU CAP.SPRINK PO SCH (09:01)
--- NOTE | 2018-12-25 15:12 | Internal Medicine Prog Note ---
Internal Medicine Subjective - Subjective Patient seen and examined:: with staff, chart reviewed Patient is:: awake, verbal, non-interactive, in wheelchair, confused Per staff patient has:: no adverse event, no episodes of fall, poor appetite Internal Medicine Objective - Physical Exam Vitals and I&O: Vital Signs Temp 96.6 F 12/25/18 14:00 Pulse 68 12/25/18 14:00 Resp 18 12/25/18 14:00 BP 90/50 12/25/18 14:00 Pulse Ox 96 12/25/18 14:00 Intake & Output 12/24/18 12/25/18 12/25/18 18:59 06:59 18:59 Intake Total 120 Balance 120 Intake: Oral 120 Other: # Voids 1 # Bowel Movements 0 Active Medications: Current Medications Acetaminophen (Tylenol) 650 mg PO Q4HR PRN PRN Reason: Moderate Pain (Scale 4-6) Stop: 02/20/19 06:39 Acetaminophen (Tylenol) 650 mg PO Q6HR PRN PRN Reason: Mild Pain (Scale 1-3) Stop: 02/20/19 15:05 Acetaminophen (Tylenol) 650 mg PO Q6H PRN PRN Reason: TEMP ABOVE 101 Stop: 02/20/19 16:03 Al Hydrox/Mg Hydrox/Simethicone (Maalox) 30 ml PO Q4HR PRN PRN Reason: GI DISTRESS Stop: 02/20/19 06:39 Albuterol Sulfate (Albuterol 2.5mg/3ml Neb Ud) 2.5 mg HHN Q6HRT PRN PRN Reason: Shortness of Breath Stop: 02/20/19 15:05 Amlodipine Besylate (Norvasc) 10 mg PO DAILY SIMON Stop: 02/21/19 08:59 Last Admin: 12/25/18 09:00 Dose: 10 mg Aspirin (Aspirin Chewable) 81 mg PO DAILY SIMON Stop: 02/21/19 08:59 Last Admin: 12/25/18 09:01 Dose: 81 mg Bisacodyl (Dulcolax 10 Mg Supp) 10 mg RC DAILY PRN PRN Reason: Constipation Stop: 02/20/19 15:05 Escitalopram Oxalate (Lexapro) 10 mg PO DAILY SIMON; Protocol Stop: 02/20/19 08:59 Last Admin: 12/25/18 08:59 Dose: 10 mg Famotidine (Pepcid) 20 mg PO QAM SIMON Stop: 02/21/19 08:59 Last Admin: 12/25/18 09:01 Dose: 20 mg Lactobacillus Rhamnosus (Culturelle 15b) 1 each PO DAILY SIMON Stop: 02/21/19 08:59 Last Admin: 12/25/18 09:01 Dose: 1 each Levofloxacin (Levaquin) 250 mg PO DAILY SIMON Stop: 12/28/18 08:59 Last Admin: 12/25/18 09:00 Dose: 250 mg Lorazepam (Ativan) 0.5 mg PO Q4HR PRN; Protocol PRN Reason: Anxiety Stop: 01/21/19 06:39 Magnesium Hydroxide (Milk Of Magnesia) 30 ml PO HS PRN PRN Reason: Constipation Zolpidem Tartrate (Ambien) 5 mg PO HS PRN PRN Reason: Insomnia Stop: 02/20/19 06:39 General: demented HEENT: NC/AT, PERRLA, EOMI Neck: Supple, No JVD Lungs: CTAB Cardiovascular: RRR, Normal S1, Normal S2, with murmur Abdomen: soft, non-tender, thin, positive bowel sound Extremities: excoriation, contracture Neurological: no change Internal Medicine Assmt/Plan - Assessment Assessment: ASSESSMENT AND PLAN: Hypertension, urinary tract infection, dementia, low albumin, depression, gastroesophageal reflux disease, history of stroke. - Plan Plan: PLAN: Continue the patient on fall precaution. Continue on current antihypertensive medication. We will make some adjustment, continue p.o. antibiotic. We will refer the patient adequate nutritional support. We will adjust the patient and continue on H2 dee. We will continue to monitor the patient closely. Nutritional Asmnt/Malnutr-PDOC - Dietary Evaluation Malnutrition Findings (Please click <Entered> for more info): Nutritional Asmnt/Malnutrition Start: 12/22/18 16: 28 Text: Status: Complete Freq: Protocol: Document 12/22/18 16:28 NICKO (Rec: 12/22/18 16:31 NICKO [email or web address]) Nutritional Asmnt/Malnutrition Patient General Information Nutritional Screening Consult Diagnosis Psychosis Pertinent Medical Hx/Surgical Hx No current Reports Subjective Information Consult: New Admission Pt is a 83-year-old female admitted on 12/22 d/t psychosis. Spoke with Nurse Vito, pt ate 50% breakfast and lunch today. Nurse stated MD ordered Ensure Enlive TID, will monitor order update. Nurse states pt has no wounds, skin WNL. Anthropometrics HT: 53 WT: 105 LB (73.18 kg) BMI: 18.60 (Normal) GI/ Skin Integrity GI: Not noted BM: Not Noted Skin: WNL Lee: 14 Diet Order: Pureed, [place] Thick Liquids Estimated Energy Needs: ( Geriatric, CBW) 7113-7896 kcals (25-30 kcals/ kg) 73-88g Pro (1.0-1.2 g/kg) 7381-4624 ml (25-30 ml/kg) Current Diet Order/ Nutrition Support Pureed, [place] Thick Liquids Pertinent Medications Maalox (PRN), MOM (PRN) Pertinent Labs 12/21: Bun 33, Glucose 107, Alb 3.3 Nutritional Hx/Data Height 1.6 m Height (Calculated Centimeters) 160.0 Current Weight (lbs) 47.627 kg Weight (Calculated Kilograms) 47.6 Weight (Calculated Grams) 96430.2 [place] Body Weight 115 LB (52.27 kg) % [place] Body Weight 91 Body Mass Index (BMI) 18.6 Weight Status Approriate GI Symptoms Last BM Not Noted Skin Integrity/Comment: Skin: WNL Lee: 14 Current %PO Fair (50-74%) Estimated Nutritional Goals BEE in Kcals: Using Current wt Calories/Kcals/Kg 25-30 Kcals Calculated 8595-9183 Protein: Using Current wt Protein g/k.0-1.2 Protein Calculated 73-88 Fluid: ml 0072-7549 ml (25-30 ml/kg) Nutritional Problem 1. Problem Problem No nutrition diagnosis at this time. Etiology N/A Signs/Symptoms: N/A Malnutrition Related to Morbid Obesity Malnutrition related to morbid obesity No Intervention/Recommendation Comments 1. Continue with Pureed, [place] Thick Liquids diet as ordered. Expected Outcomes/Goals Expected Outcomes/Goals 1. PO intake to meet 75% of nutritional needs. 2. Monitor PO intake, wt, nutrition related labs to trend WNL, and skin integrity. 3. F/U as low risk in 7-10 days, 12/29-01/01
--- NOTE | 2018-12-25 20:29 | Progress Notes ---
DATE: SUBJECTIVE: Chart reviewed and the patient interviewed. Also discussed the patient's condition with the staff and reviewed records and labs. The patient is still confused and is still restless and also depressed. The patient also is interacting minimally with others and wants to be left alone. Almost no communications during my trials to interview the patient. She also looks preoccupied and responding. Otherwise, the patient is compliant with taking her medications with no side effects of medications. ASSESSMENT: The patient is still confused and psychotic. TREATMENT PLAN: Continue to monitor her behavior and her condition closely. The patient also still taking Levaquin for her urine infection. We will continue same dose and we will continue to follow up closely. [facility]# [id number]
--- NOTE | 2018-12-26 07:34 | Progress Notes ---
DATE: 12/26/2018 SUBJECTIVE: Chart reviewed and the patient interviewed. Also discussed the patient's condition with the staff and reviewed records and labs. The patient is still selectively confused and she still does not answer most of my questions, which might be because of language barrier, but also because of her confusion. The patient also still needs lots of redirections. The patient also is still easily agitated and she is confused and wandering around into patient's rooms and on the unit in a confused state. Otherwise, the patient is compliant with taking her medications with no side effects of medications. ASSESSMENT: The patient is still confused and is still agitated and psychotic. TREATMENT PLAN: Continue monitoring her behavior closely. Also, continue working on behavioral modification and follow up closely. JOB# [id number]
[2018-12-26] MEDS: Aspirin 81mg Chewable Tab PO SCH (08:42)
[2018-12-26] MEDS: Lactobacillus Rhamnosus GG 15 Billion CFU CAP.SPRINK PO SCH (08:42)
--- NOTE | 2018-12-26 12:46 | Internal Medicine Prog Note ---
Internal Medicine Subjective - Subjective Patient seen and examined:: with staff, chart reviewed Patient is:: awake, verbal, non-interactive, in wheelchair, confused Per staff patient has:: no adverse event, no episodes of fall, poor appetite Internal Medicine Objective - Physical Exam Vitals and I&O: Vital Signs Temp 97.8 F 12/26/18 06:42 Pulse 62 12/26/18 09:02 Resp 18 12/26/18 06:42 BP 110/46 12/26/18 09:02 Pulse Ox 96 12/26/18 06:42 Intake & Output 12/25/18 12/26/18 12/26/18 18:59 06:59 18:59 Intake Total 240 Balance 240 Intake: Oral 240 Other: # Voids 3 3 # Bowel Movements 0 Active Medications: Current Medications Acetaminophen (Tylenol) 650 mg PO Q4HR PRN PRN Reason: Moderate Pain (Scale 4-6) Stop: 02/20/19 06:39 Acetaminophen (Tylenol) 650 mg PO Q6HR PRN PRN Reason: Mild Pain (Scale 1-3) Stop: 02/20/19 15:05 Acetaminophen (Tylenol) 650 mg PO Q6H PRN PRN Reason: TEMP ABOVE 101 Stop: 02/20/19 16:03 Al Hydrox/Mg Hydrox/Simethicone (Maalox) 30 ml PO Q4HR PRN PRN Reason: GI DISTRESS Stop: 02/20/19 06:39 Albuterol Sulfate (Albuterol 2.5mg/3ml Neb Ud) 2.5 mg HHN Q6HRT PRN PRN Reason: Shortness of Breath Stop: 02/20/19 15:05 Amlodipine Besylate (Norvasc) 10 mg PO DAILY SIMON Stop: 02/21/19 08:59 Last Admin: 12/26/18 09:02 Dose: Not Given Aspirin (Aspirin Chewable) 81 mg PO DAILY SIMON Stop: 02/21/19 08:59 Last Admin: 12/26/18 08:42 Dose: 81 mg Bisacodyl (Dulcolax 10 Mg Supp) 10 mg RC DAILY PRN PRN Reason: Constipation Stop: 02/20/19 15:05 Escitalopram Oxalate (Lexapro) 10 mg PO DAILY SIMON; Protocol Stop: 02/20/19 08:59 Last Admin: 12/26/18 08:44 Dose: 10 mg Famotidine (Pepcid) 20 mg PO QAM SIMON Stop: 02/21/19 08:59 Last Admin: 12/26/18 08:45 Dose: 20 mg Lactobacillus Rhamnosus (Culturelle 15b) 1 each PO DAILY SIMON Stop: 02/21/19 08:59 Last Admin: 12/26/18 08:42 Dose: 1 each Levofloxacin (Levaquin) 250 mg PO DAILY SIMON Stop: 12/28/18 08:59 Last Admin: 12/26/18 09:03 Dose: 250 mg Lorazepam (Ativan) 0.5 mg PO Q4HR PRN; Protocol PRN Reason: Anxiety Stop: 01/21/19 06:39 Magnesium Hydroxide (Milk Of Magnesia) 30 ml PO HS PRN PRN Reason: Constipation Zolpidem Tartrate (Ambien) 5 mg PO HS PRN PRN Reason: Insomnia Stop: 02/20/19 06:39 General: demented HEENT: NC/AT, PERRLA, EOMI Neck: Supple, No JVD Lungs: CTAB Cardiovascular: RRR, Normal S1, Normal S2, with murmur Abdomen: soft, non-tender, thin, positive bowel sound Extremities: excoriation, contracture Neurological: no change Internal Medicine Assmt/Plan - Assessment Assessment: ASSESSMENT AND PLAN: Hypertension, urinary tract infection, dementia, low albumin, depression, gastroesophageal reflux disease, history of stroke. - Plan Plan: PLAN: Continue the patient on fall precaution. Continue on current antihypertensive medication. We will make some adjustment, continue p.o. antibiotic. We will refer the patient adequate nutritional support. We will adjust the patient and continue on H2 dee. We will continue to monitor the patient closely. Nutritional Asmnt/Malnutr-PDOC - Dietary Evaluation Malnutrition Findings (Please click <Entered> for more info): Nutritional Asmnt/Malnutrition Start: 12/22/18 16: 28 Text: Status: Complete Freq: Protocol: Document 12/22/18 16:28 NICKO (Rec: 12/22/18 16:31 NICKO [email or web address]) Nutritional Asmnt/Malnutrition Patient General Information Nutritional Screening Consult Diagnosis Psychosis Pertinent Medical Hx/Surgical Hx No current Reports Subjective Information Consult: New Admission Pt is a 83-year-old female admitted on 12/22 d/t psychosis. Spoke with Nurse Vito, pt ate 50% breakfast and lunch today. Nurse stated MD ordered Ensure Enlive TID, will monitor order update. Nurse states pt has no wounds, skin WNL. Anthropometrics HT: 53 WT: 105 LB (73.18 kg) BMI: 18.60 (Normal) GI/ Skin Integrity GI: Not noted BM: Not Noted Skin: WNL Lee: 14 Diet Order: Pureed, [place] Thick Liquids Estimated Energy Needs: ( Geriatric, CBW) 3713-9677 kcals (25-30 kcals/ kg) 73-88g Pro (1.0-1.2 g/kg) 3516-0749 ml (25-30 ml/kg) Current Diet Order/ Nutrition Support Pureed, [place] Thick Liquids Pertinent Medications Maalox (PRN), MOM (PRN) Pertinent Labs 12/21: Bun 33, Glucose 107, Alb 3.3 Nutritional Hx/Data Height 1.6 m Height (Calculated Centimeters) 160.0 Current Weight (lbs) 47.627 kg Weight (Calculated Kilograms) 47.6 Weight (Calculated Grams) 49602.2 [place] Body Weight 115 LB (52.27 kg) % [place] Body Weight 91 Body Mass Index (BMI) 18.6 Weight Status Approriate GI Symptoms Last BM Not Noted Skin Integrity/Comment: Skin: WNL Lee: 14 Current %PO Fair (50-74%) Estimated Nutritional Goals BEE in Kcals: Using Current wt Calories/Kcals/Kg 25-30 Kcals Calculated 4500-2597 Protein: Using Current wt Protein g/k.0-1.2 Protein Calculated 73-88 Fluid: ml 8331-8771 ml (25-30 ml/kg) Nutritional Problem 1. Problem Problem No nutrition diagnosis at this time. Etiology N/A Signs/Symptoms: N/A Malnutrition Related to Morbid Obesity Malnutrition related to morbid obesity No Intervention/Recommendation Comments 1. Continue with Pureed, [place] Thick Liquids diet as ordered. Expected Outcomes/Goals Expected Outcomes/Goals 1. PO intake to meet 75% of nutritional needs. 2. Monitor PO intake, wt, nutrition related labs to trend WNL, and skin integrity. 3. F/U as low risk in 7-10 days, 12/29-01/01
[2018-12-27] MEDS: Lactobacillus Rhamnosus GG 15 Billion CFU CAP.SPRINK PO SCH (09:45)
[2018-12-27] MEDS: Aspirin 81mg Chewable Tab PO SCH (09:46)
--- NOTE | 2018-12-27 11:01 | Progress Notes ---
DATE: 12/27/2018 SUBJECTIVE: Chart reviewed and the patient interviewed. Also discussed the patient's condition with the staff and reviewed records and labs. The patient is still confused, and she is still selectively mute. The patient also is still guarded and withdrawn. She is interacting minimally with others and wants to be left alone. She also still has episodes of yelling and screaming. Otherwise, the patient is compliant with taking her medications with no side effects of medications. ASSESSMENT: The patient is still agitated and needs close monitoring. TREATMENT PLAN: Continue to monitor behavior and condition closely. Also, continue adjusting psychotropic medications and follow up closely. JOB# [id number]
--- NOTE | 2018-12-27 12:38 | Internal Medicine Prog Note ---
Internal Medicine Subjective - Subjective Patient seen and examined:: with staff, chart reviewed Patient is:: awake, verbal, non-interactive, in wheelchair, confused Per staff patient has:: no adverse event, no episodes of fall, poor appetite Internal Medicine Objective - Physical Exam Vitals and I&O: Vital Signs Temp 97.3 F 12/27/18 06:12 Pulse 63 12/27/18 09:46 Resp 19 12/27/18 06:12 BP 96/49 12/27/18 09:46 Pulse Ox 94 12/27/18 06:12 Intake & Output 12/26/18 12/27/18 12/27/18 18:59 06:59 18:59 Intake Total 62 Balance 62 Intake: Oral 62 Other: # Voids 1 # Bowel Movements 0 Active Medications: Current Medications Acetaminophen (Tylenol) 650 mg PO Q4HR PRN PRN Reason: Moderate Pain (Scale 4-6) Stop: 02/20/19 06:39 Acetaminophen (Tylenol) 650 mg PO Q6HR PRN PRN Reason: Mild Pain (Scale 1-3) Stop: 02/20/19 15:05 Acetaminophen (Tylenol) 650 mg PO Q6H PRN PRN Reason: TEMP ABOVE 101 Stop: 02/20/19 16:03 Al Hydrox/Mg Hydrox/Simethicone (Maalox) 30 ml PO Q4HR PRN PRN Reason: GI DISTRESS Stop: 02/20/19 06:39 Albuterol Sulfate (Albuterol 2.5mg/3ml Neb Ud) 2.5 mg HHN Q6HRT PRN PRN Reason: Shortness of Breath Stop: 02/20/19 15:05 Amlodipine Besylate (Norvasc) 10 mg PO DAILY SIMON Stop: 02/21/19 08:59 Last Admin: 12/27/18 09:46 Dose: Not Given Aspirin (Aspirin Chewable) 81 mg PO DAILY SIMON Stop: 02/21/19 08:59 Last Admin: 12/27/18 09:46 Dose: 81 mg Bisacodyl (Dulcolax 10 Mg Supp) 10 mg RC DAILY PRN PRN Reason: Constipation Stop: 02/20/19 15:05 Escitalopram Oxalate (Lexapro) 10 mg PO DAILY SIMON; Protocol Stop: 02/20/19 08:59 Last Admin: 12/27/18 09:45 Dose: 10 mg Famotidine (Pepcid) 20 mg PO QAM SIMON Stop: 02/21/19 08:59 Last Admin: 12/27/18 09:45 Dose: 20 mg Lactobacillus Rhamnosus (Culturelle 15b) 1 each PO DAILY SIMON Stop: 02/21/19 08:59 Last Admin: 12/27/18 09:45 Dose: 1 each Levofloxacin (Levaquin) 250 mg PO DAILY SIMON Stop: 12/28/18 08:59 Last Admin: 12/27/18 09:46 Dose: 250 mg Lorazepam (Ativan) 0.5 mg PO Q4HR PRN; Protocol PRN Reason: Anxiety Stop: 01/21/19 06:39 Magnesium Hydroxide (Milk Of Magnesia) 30 ml PO HS PRN PRN Reason: Constipation Zolpidem Tartrate (Ambien) 5 mg PO HS PRN PRN Reason: Insomnia Stop: 02/20/19 06:39 General: demented HEENT: NC/AT, PERRLA, EOMI Neck: Supple, No JVD Lungs: CTAB Cardiovascular: RRR, Normal S1, Normal S2, with murmur Abdomen: soft, non-tender, thin, positive bowel sound Extremities: excoriation, contracture Neurological: no change Internal Medicine Assmt/Plan - Assessment Assessment: ASSESSMENT AND PLAN: Hypertension, urinary tract infection, dementia, low albumin, depression, gastroesophageal reflux disease, history of stroke. - Plan Plan: PLAN: Continue the patient on fall precaution. Continue on current antihypertensive medication. We will make some adjustment, continue p.o. antibiotic. We will refer the patient adequate nutritional support. We will adjust the patient and continue on H2 dee. We will continue to monitor the patient closely. Nutritional Asmnt/Malnutr-PDOC - Dietary Evaluation Malnutrition Findings (Please click <Entered> for more info): Nutritional Asmnt/Malnutrition Start: 12/22/18 16: 28 Text: Status: Complete Freq: Protocol: Document 12/22/18 16:28 NICKO (Rec: 12/22/18 16:31 NICKO [email or web address]) Nutritional Asmnt/Malnutrition Patient General Information Nutritional Screening Consult Diagnosis Psychosis Pertinent Medical Hx/Surgical Hx No current Reports Subjective Information Consult: New Admission Pt is a 83-year-old female admitted on 12/22 d/t psychosis. Spoke with Nurse Vito, pt ate 50% breakfast and lunch today. Nurse stated MD ordered Ensure Enlive TID, will monitor order update. Nurse states pt has no wounds, skin WNL. Anthropometrics HT: 53 WT: 105 LB (73.18 kg) BMI: 18.60 (Normal) GI/ Skin Integrity GI: Not noted BM: Not Noted Skin: WNL Lee: 14 Diet Order: Pureed, [place] Thick Liquids Estimated Energy Needs: ( Geriatric, CBW) 7028-1033 kcals (25-30 kcals/ kg) 73-88g Pro (1.0-1.2 g/kg) 2890-8649 ml (25-30 ml/kg) Current Diet Order/ Nutrition Support Pureed, [place] Thick Liquids Pertinent Medications Maalox (PRN), MOM (PRN) Pertinent Labs 12/21: Bun 33, Glucose 107, Alb 3.3 Nutritional Hx/Data Height 1.6 m Height (Calculated Centimeters) 160.0 Current Weight (lbs) 47.627 kg Weight (Calculated Kilograms) 47.6 Weight (Calculated Grams) 08560.2 [place] Body Weight 115 LB (52.27 kg) % [place] Body Weight 91 Body Mass Index (BMI) 18.6 Weight Status Approriate GI Symptoms Last BM Not Noted Skin Integrity/Comment: Skin: WNL Lee: 14 Current %PO Fair (50-74%) Estimated Nutritional Goals BEE in Kcals: Using Current wt Calories/Kcals/Kg 25-30 Kcals Calculated 5183-1219 Protein: Using Current wt Protein g/k.0-1.2 Protein Calculated 73-88 Fluid: ml 0688-0208 ml (25-30 ml/kg) Nutritional Problem 1. Problem Problem No nutrition diagnosis at this time. Etiology N/A Signs/Symptoms: N/A Malnutrition Related to Morbid Obesity Malnutrition related to morbid obesity No Intervention/Recommendation Comments 1. Continue with Pureed, [place] Thick Liquids diet as ordered. Expected Outcomes/Goals Expected Outcomes/Goals 1. PO intake to meet 75% of nutritional needs. 2. Monitor PO intake, wt, nutrition related labs to trend WNL, and skin integrity. 3. F/U as low risk in 7-10 days, 12/29-01/01
[2018-12-28] MEDS: Aspirin 81mg Chewable Tab PO SCH (08:50)
[2018-12-28] MEDS: Lactobacillus Rhamnosus GG 15 Billion CFU CAP.SPRINK PO SCH (08:51)
--- NOTE | 2018-12-28 10:45 | Progress Notes ---
DATE: SUBJECTIVE: Chart reviewed and the patient interviewed. Also discussed the patient's condition with the staff and reviewed records and labs. The patient is still confused and she is still easily irritable and easily agitated. The patient also is still restless and she still wants to be left alone and interacting minimally with others. The patient also still has difficulty communication because of language barrier and she only speaks Mandarin. Otherwise, the patient is compliant with taking her medications with no side effects of medications. ASSESSMENT: The patient is still irritable and in angry mood and still needs redirections. TREATMENT PLAN: Continue monitoring behavior and condition closely. Also, continue adjusting psychotropic medications and work on behavioral modification. [facility]# [id number]
--- NOTE | 2018-12-28 12:33 | Internal Medicine Prog Note ---
Internal Medicine Subjective - Subjective Patient seen and examined:: with staff, chart reviewed Patient is:: awake, verbal, non-interactive, in wheelchair, confused Per staff patient has:: no adverse event, no episodes of fall, poor appetite Internal Medicine Objective - Physical Exam Vitals and I&O: Vital Signs Temp 97.5 F 12/28/18 06:12 Pulse 60 12/28/18 08:48 Resp 20 12/28/18 06:12 BP 157/75 12/28/18 08:48 Pulse Ox 91 12/28/18 06:12 Intake & Output 12/27/18 12/28/18 12/28/18 18:59 06:59 18:59 Intake Total 600 120 Output Total 1 Balance 600 119 Intake: Oral 600 120 Output: Urine/Stool Mix 1 Other: # Voids 4 3 # Bowel Movements 1 0 Active Medications: Current Medications Acetaminophen (Tylenol) 650 mg PO Q4HR PRN PRN Reason: Moderate Pain (Scale 4-6) Stop: 02/20/19 06:39 Acetaminophen (Tylenol) 650 mg PO Q6HR PRN PRN Reason: Mild Pain (Scale 1-3) Stop: 02/20/19 15:05 Acetaminophen (Tylenol) 650 mg PO Q6H PRN PRN Reason: TEMP ABOVE 101 Stop: 02/20/19 16:03 Al Hydrox/Mg Hydrox/Simethicone (Maalox) 30 ml PO Q4HR PRN PRN Reason: GI DISTRESS Stop: 02/20/19 06:39 Albuterol Sulfate (Albuterol 2.5mg/3ml Neb Ud) 2.5 mg HHN Q6HRT PRN PRN Reason: Shortness of Breath Stop: 02/20/19 15:05 Amlodipine Besylate (Norvasc) 10 mg PO DAILY [facility] Stop: 02/21/19 08:59 Last Admin: 12/28/18 08:48 Dose: 10 mg Aspirin (Aspirin Chewable) 81 mg PO DAILY [facility] Stop: 02/21/19 08:59 Last Admin: 12/28/18 08:50 Dose: 81 mg Bisacodyl (Dulcolax 10 Mg Supp) 10 mg RC DAILY PRN PRN Reason: Constipation Stop: 02/20/19 15:05 Escitalopram Oxalate (Lexapro) 10 mg PO DAILY [facility]; Protocol Stop: 02/20/19 08:59 Last Admin: 12/28/18 08:50 Dose: 10 mg Famotidine (Pepcid) 20 mg PO QAM SIMON Stop: 02/21/19 08:59 Last Admin: 12/28/18 08:51 Dose: 20 mg Lactobacillus Rhamnosus (Culturelle 15b) 1 each PO DAILY SIMON Stop: 02/21/19 08:59 Last Admin: 12/28/18 08:51 Dose: 1 each Lorazepam (Ativan) 0.5 mg PO Q4HR PRN; Protocol PRN Reason: Anxiety Stop: 01/21/19 06:39 Magnesium Hydroxide (Milk Of Magnesia) 30 ml PO HS PRN PRN Reason: Constipation Zolpidem Tartrate (Ambien) 5 mg PO HS PRN PRN Reason: Insomnia Stop: 02/20/19 06:39 General: demented HEENT: NC/AT, PERRLA, EOMI Neck: Supple, No JVD Lungs: CTAB Cardiovascular: RRR, Normal S1, Normal S2, with murmur Abdomen: soft, non-tender, thin, positive bowel sound Extremities: excoriation, contracture Neurological: no change Internal Medicine Assmt/Plan - Assessment Assessment: ASSESSMENT AND PLAN: Hypertension, urinary tract infection, dementia, low albumin, depression, gastroesophageal reflux disease, history of stroke. - Plan Plan: PLAN: Continue the patient on fall precaution. Continue on current antihypertensive medication. We will make some adjustment, continue p.o. antibiotic. We will refer the patient adequate nutritional support. We will adjust the patient and continue on H2 dee. We will continue to monitor the patient closely. Nutritional Asmnt/Malnutr-PDOC - Dietary Evaluation Malnutrition Findings (Please click <Entered> for more info): Nutritional Asmnt/Malnutrition Start: 12/22/18 16: 28 Text: Status: Complete Freq: Protocol: Document 12/22/18 16:28 NICKO (Rec: 12/22/18 16:31 NICKO [email or web address]) Nutritional Asmnt/Malnutrition Patient General Information Nutritional Screening Consult Diagnosis Psychosis Pertinent Medical Hx/Surgical Hx No current Reports Subjective Information Consult: New Admission Pt is a 83-year-old female admitted on 12/22 d/t psychosis. Spoke with Nurse Padron, pt ate 50% breakfast and lunch today. Nurse allan JONES ordered Ensure Enlive TID, will monitor order update. Nurse states pt has no wounds, skin WNL. Anthropometrics HT: 53 WT: 105 LB (73.18 kg) BMI: 18.60 (Normal) GI/ Skin Integrity GI: Not noted BM: Not Noted Skin: WNL Lee: 14 Diet Order: Pureed, [place] Thick Liquids Estimated Energy Needs: ( Geriatric, CBW) 5926-1759 kcals (25-30 kcals/ kg) 73-88g Pro (1.0-1.2 g/kg) 3813-8853 ml (25-30 ml/kg) Current Diet Order/ Nutrition Support Pureed, [place] Thick Liquids Pertinent Medications Maalox (PRN), MOM (PRN) Pertinent Labs 12/21: Bun 33, Glucose 107, Alb 3.3 Nutritional Hx/Data Height 1.6 m Height (Calculated Centimeters) 160.0 Current Weight (lbs) 47.627 kg Weight (Calculated Kilograms) 47.6 Weight (Calculated Grams) 09945.2 [place] Body Weight 115 LB (52.27 kg) % [place] Body Weight 91 Body Mass Index (BMI) 18.6 Weight Status Approriate GI Symptoms Last BM Not Noted Skin Integrity/Comment: Skin: WNL Lee: 14 Current %PO Fair (50-74%) Estimated Nutritional Goals BEE in Kcals: Using Current wt Calories/Kcals/Kg 25-30 Kcals Calculated 3362-6150 Protein: Using Current wt Protein g/k.0-1.2 Protein Calculated 73-88 Fluid: ml 7322-3982 ml (25-30 ml/kg) Nutritional Problem 1. Problem Problem No nutrition diagnosis at this time. Etiology N/A Signs/Symptoms: N/A Malnutrition Related to Morbid Obesity Malnutrition related to morbid obesity No Intervention/Recommendation Comments 1. Continue with Pureed, [place] Thick Liquids diet as ordered. Expected Outcomes/Goals Expected Outcomes/Goals 1. PO intake to meet 75% of nutritional needs. 2. Monitor PO intake, wt, nutrition related labs to trend WNL, and skin integrity. 3. F/U as low risk in 7-10 days, 12/29-01/01
[2018-12-29] MEDS: Aspirin 81mg Chewable Tab PO SCH (09:22)
[2018-12-29] MEDS: Lactobacillus Rhamnosus GG 15 Billion CFU CAP.SPRINK PO SCH (09:22)
[2018-12-29] MEDS ORDERED: guaiFENesin 200 MG/10 ML UDC PO PRN (13:00)
--- NOTE | 2018-12-29 13:01 | Internal Medicine Prog Note ---
Internal Medicine Subjective - Subjective Patient seen and examined:: with staff, chart reviewed, other (coughing per staff) Patient is:: awake, verbal, non-interactive, in wheelchair, confused Per staff patient has:: no adverse event, no episodes of fall, poor appetite Internal Medicine Objective - Physical Exam Vitals and I&O: Vital Signs Temp 97.6 F 12/29/18 06:43 Pulse 61 12/29/18 06:43 Resp 18 12/29/18 06:43 BP 106/62 12/29/18 06:43 Pulse Ox 94 12/29/18 06:43 Intake & Output 12/28/18 12/29/18 12/29/18 18:59 06:59 18:59 Intake Total 120 Balance 120 Intake: Oral 120 Other: # Voids 1 3 # Bowel Movements 0 Active Medications: Current Medications Acetaminophen (Tylenol) 650 mg PO Q4HR PRN PRN Reason: Moderate Pain (Scale 4-6) Stop: 02/20/19 06:39 Acetaminophen (Tylenol) 650 mg PO Q6HR PRN PRN Reason: Mild Pain (Scale 1-3) Stop: 02/20/19 15:05 Acetaminophen (Tylenol) 650 mg PO Q6H PRN PRN Reason: TEMP ABOVE 101 Stop: 02/20/19 16:03 Al Hydrox/Mg Hydrox/Simethicone (Maalox) 30 ml PO Q4HR PRN PRN Reason: GI DISTRESS Stop: 02/20/19 06:39 Albuterol Sulfate (Albuterol 2.5mg/3ml Neb Ud) 2.5 mg HHN Q6HRT PRN PRN Reason: Shortness of Breath Stop: 02/20/19 15:05 Amlodipine Besylate (Norvasc) 10 mg PO DAILY SIMON Stop: 02/21/19 08:59 Last Admin: 12/28/18 08:48 Dose: 10 mg Aspirin (Aspirin Chewable) 81 mg PO DAILY SIMON Stop: 02/21/19 08:59 Last Admin: 12/29/18 09:22 Dose: 81 mg Bisacodyl (Dulcolax 10 Mg Supp) 10 mg RC DAILY PRN PRN Reason: Constipation Stop: 02/20/19 15:05 Escitalopram Oxalate (Lexapro) 10 mg PO DAILY SIMON; Protocol Stop: 02/20/19 08:59 Last Admin: 12/29/18 09:22 Dose: 10 mg Famotidine (Pepcid) 20 mg PO QAM SIMON Stop: 02/21/19 08:59 Last Admin: 12/29/18 09:22 Dose: 20 mg Lactobacillus Rhamnosus (Culturelle 15b) 1 each PO DAILY SIMON Stop: 02/21/19 08:59 Last Admin: 12/29/18 09:22 Dose: 1 each Lorazepam (Ativan) 0.5 mg PO Q4HR PRN; Protocol PRN Reason: Anxiety Stop: 01/21/19 06:39 Magnesium Hydroxide (Milk Of Magnesia) 30 ml PO HS PRN PRN Reason: Constipation Zolpidem Tartrate (Ambien) 5 mg PO HS PRN PRN Reason: Insomnia Stop: 02/20/19 06:39 General: demented HEENT: NC/AT, PERRLA, EOMI Neck: Supple, No JVD Lungs: CTAB Cardiovascular: RRR, Normal S1, Normal S2, with murmur Abdomen: soft, non-tender, thin, positive bowel sound Extremities: excoriation, contracture Neurological: no change Internal Medicine Assmt/Plan - Assessment Assessment: ASSESSMENT AND PLAN: Hypertension, urinary tract infection, dementia, low albumin, depression, gastroesophageal reflux disease, history of stroke. cough - Plan Plan: PLAN: Continue the patient on fall precaution. Continue on current antihypertensive medication. We will make some adjustment, continue p.o. antibiotic. We will refer the patient adequate nutritional support. We will adjust the patient and continue on H2 dee. We will continue to monitor the patient closely. check cxr Nutritional Asmnt/Malnutr-PDOC - Dietary Evaluation Malnutrition Findings (Please click <Entered> for more info): Nutritional Asmnt/Malnutrition Start: 12/22/18 16: 28 Text: Status: Complete Freq: Protocol: Document 12/22/18 16:28 NICKO (Rec: 12/22/18 16:31 NICKO [email or web address]) Nutritional Asmnt/Malnutrition Patient General Information Nutritional Screening Consult Diagnosis Psychosis Pertinent Medical Hx/Surgical Hx No current Reports Subjective Information Consult: New Admission Pt is a 83-year-old female admitted on 12/22 d/t psychosis. Spoke with Nurse Padron, pt ate 50% breakfast and lunch today. Nurse allan JONES ordered Ensure Enlive TID, will monitor order update. Nurse states pt has no wounds, skin WNL. Anthropometrics HT: 53 WT: 105 LB (73.18 kg) BMI: 18.60 (Normal) GI/ Skin Integrity GI: Not noted BM: Not Noted Skin: WNL Lee: 14 Diet Order: Pureed, [place] Thick Liquids Estimated Energy Needs: ( Geriatric, CBW) 9270-7162 kcals (25-30 kcals/ kg) 73-88g Pro (1.0-1.2 g/kg) 0736-6646 ml (25-30 ml/kg) Current Diet Order/ Nutrition Support Pureed, [place] Thick Liquids Pertinent Medications Maalox (PRN), MOM (PRN) Pertinent Labs 12/21: Bun 33, Glucose 107, Alb 3.3 Nutritional Hx/Data Height 1.6 m Height (Calculated Centimeters) 160.0 Current Weight (lbs) 47.627 kg Weight (Calculated Kilograms) 47.6 Weight (Calculated Grams) 25722.2 [place] Body Weight 115 LB (52.27 kg) % [place] Body Weight 91 Body Mass Index (BMI) 18.6 Weight Status Approriate GI Symptoms Last BM Not Noted Skin Integrity/Comment: Skin: WNL Lee: 14 Current %PO Fair (50-74%) Estimated Nutritional Goals BEE in Kcals: Using Current wt Calories/Kcals/Kg 25-30 Kcals Calculated 5872-6270 Protein: Using Current wt Protein g/k.0-1.2 Protein Calculated 73-88 Fluid: ml 2841-8914 ml (25-30 ml/kg) Nutritional Problem 1. Problem Problem No nutrition diagnosis at this time. Etiology N/A Signs/Symptoms: N/A Malnutrition Related to Morbid Obesity Malnutrition related to morbid obesity No Intervention/Recommendation Comments 1. Continue with Pureed, [place] Thick Liquids diet as ordered. Expected Outcomes/Goals Expected Outcomes/Goals 1. PO intake to meet 75% of nutritional needs. 2. Monitor PO intake, wt, nutrition related labs to trend WNL, and skin integrity. 3. F/U as low risk in 7-10 days, 12/29-01/01
[2018-12-30] MEDS: Lactobacillus Rhamnosus GG 15 Billion CFU CAP.SPRINK PO SCH (09:08)
[2018-12-30] MEDS: Aspirin 81mg Chewable Tab PO SCH (09:08)
--- NOTE | 2018-12-30 12:36 | Internal Medicine Prog Note ---
Internal Medicine Subjective - Subjective Patient seen and examined:: with staff, chart reviewed Patient is:: awake, verbal, non-interactive, in wheelchair, confused Per staff patient has:: no adverse event, no episodes of fall, poor appetite Internal Medicine Objective - Physical Exam Vitals and I&O: Vital Signs Temp 97.4 F 12/29/18 20:00 Pulse 81 12/29/18 20:00 Resp 18 12/29/18 20:00 BP 101/66 12/29/18 20:00 Pulse Ox 97 12/29/18 20:00 Intake & Output 12/29/18 12/30/18 12/30/18 18:59 06:59 18:59 Intake Total 400 60 Balance 400 60 Intake: Oral 400 60 Other: # Voids 3 3 # Bowel Movements 0 Active Medications: Current Medications Acetaminophen (Tylenol) 650 mg PO Q4HR PRN PRN Reason: Moderate Pain (Scale 4-6) Stop: 02/20/19 06:39 Acetaminophen (Tylenol) 650 mg PO Q6HR PRN PRN Reason: Mild Pain (Scale 1-3) Stop: 02/20/19 15:05 Acetaminophen (Tylenol) 650 mg PO Q6H PRN PRN Reason: TEMP ABOVE 101 Stop: 02/20/19 16:03 Al Hydrox/Mg Hydrox/Simethicone (Maalox) 30 ml PO Q4HR PRN PRN Reason: GI DISTRESS Stop: 02/20/19 06:39 Albuterol Sulfate (Albuterol 2.5mg/3ml Neb Ud) 2.5 mg HHN Q6HRT PRN PRN Reason: Shortness of Breath Stop: 02/20/19 15:05 Amlodipine Besylate (Norvasc) 10 mg PO DAILY [facility]ON Stop: 02/21/19 08:59 Last Admin: 12/30/18 09:08 Dose: Not Given Aspirin (Aspirin Chewable) 81 mg PO DAILY [facility] Stop: 02/21/19 08:59 Last Admin: 12/30/18 09:08 Dose: 81 mg Bisacodyl (Dulcolax 10 Mg Supp) 10 mg RC DAILY PRN PRN Reason: Constipation Stop: 02/20/19 15:05 Escitalopram Oxalate (Lexapro) 10 mg PO DAILY SIMON; Protocol Stop: 02/20/19 08:59 Last Admin: 12/30/18 09:08 Dose: 10 mg Famotidine (Pepcid) 20 mg PO QAM SIMON Stop: 02/21/19 08:59 Last Admin: 12/30/18 09:08 Dose: 20 mg Guaifenesin (Robitussin) 200 mg PO Q4HR PRN PRN Reason: Cough or Congestion Stop: 02/27/19 12:59 Last Admin: 12/29/18 17:38 Dose: 200 mg Lactobacillus Rhamnosus (Culturelle 15b) 1 each PO DAILY SIMON Stop: 02/21/19 08:59 Last Admin: 12/30/18 09:08 Dose: 1 each Lorazepam (Ativan) 0.5 mg PO Q4HR PRN; Protocol PRN Reason: Anxiety Stop: 01/21/19 06:39 Magnesium Hydroxide (Milk Of Magnesia) 30 ml PO HS PRN PRN Reason: Constipation Zolpidem Tartrate (Ambien) 5 mg PO HS PRN PRN Reason: Insomnia Stop: 02/20/19 06:39 General: demented HEENT: NC/AT, PERRLA, EOMI Neck: Supple, No JVD Lungs: CTAB Cardiovascular: RRR, Normal S1, Normal S2, with murmur Abdomen: soft, non-tender, thin, positive bowel sound Extremities: excoriation, contracture Neurological: no change Internal Medicine Assmt/Plan - Assessment Assessment: ASSESSMENT AND PLAN: Hypertension, urinary tract infection, dementia, low albumin, depression, gastroesophageal reflux disease, history of stroke. cough - Plan Plan: PLAN: Continue the patient on fall precaution. Continue on current antihypertensive medication. We will make some adjustment, continue p.o. antibiotic. We will refer the patient adequate nutritional support. We will adjust the patient and continue on H2 dee. We will continue to monitor the patient closely. check cxr Nutritional Asmnt/Malnutr-PDOC - Dietary Evaluation Malnutrition Findings (Please click <Entered> for more info): Nutritional Asmnt/Malnutrition Start: 12/22/18 16: 28 Text: Status: Complete Freq: Protocol: Document 12/22/18 16:28 NICKO (Rec: 12/22/18 16:31 NICKO [email or web address]) Nutritional Asmnt/Malnutrition Patient General Information Nutritional Screening Consult Diagnosis Psychosis Pertinent Medical Hx/Surgical Hx No current Reports Subjective Information Consult: New Admission Pt is a 83-year-old female admitted on 12/22 d/t psychosis. Spoke with Nurse Vito, pt ate 50% breakfast and lunch today. Nurse stated MD ordered Ensure Enlive TID, will monitor order update. Nurse states pt has no wounds, skin WNL. Anthropometrics HT: 53 WT: 105 LB (73.18 kg) BMI: 18.60 (Normal) GI/ Skin Integrity GI: Not noted BM: Not Noted Skin: WNL Lee: 14 Diet Order: Pureed, [place] Thick Liquids Estimated Energy Needs: ( Geriatric, CBW) 4156-5438 kcals (25-30 kcals/ kg) 73-88g Pro (1.0-1.2 g/kg) 4903-9231 ml (25-30 ml/kg) Current Diet Order/ Nutrition Support Pureed, [place] Thick Liquids Pertinent Medications Maalox (PRN), MOM (PRN) Pertinent Labs 12/21: Bun 33, Glucose 107, Alb 3.3 Nutritional Hx/Data Height 1.6 m Height (Calculated Centimeters) 160.0 Current Weight (lbs) 47.627 kg Weight (Calculated Kilograms) 47.6 Weight (Calculated Grams) 88766.2 [place] Body Weight 115 LB (52.27 kg) % [place] Body Weight 91 Body Mass Index (BMI) 18.6 Weight Status Approriate GI Symptoms Last BM Not Noted Skin Integrity/Comment: Skin: WNL Lee: 14 Current %PO Fair (50-74%) Estimated Nutritional Goals BEE in Kcals: Using Current wt Calories/Kcals/Kg 25-30 Kcals Calculated 2376-9197 Protein: Using Current wt Protein g/k.0-1.2 Protein Calculated 73-88 Fluid: ml 1488-1443 ml (25-30 ml/kg) Nutritional Problem 1. Problem Problem No nutrition diagnosis at this time. Etiology N/A Signs/Symptoms: N/A Malnutrition Related to Morbid Obesity Malnutrition related to morbid obesity No Intervention/Recommendation Comments 1. Continue with Pureed, [place] Thick Liquids diet as ordered. Expected Outcomes/Goals Expected Outcomes/Goals 1. PO intake to meet 75% of nutritional needs. 2. Monitor PO intake, wt, nutrition related labs to trend WNL, and skin integrity. 3. F/U as low risk in 7-10 days, 12/29-01/01
[2018-12-31] MEDS: Lactobacillus Rhamnosus GG 15 Billion CFU CAP.SPRINK PO SCH (07:59)
[2018-12-31] MEDS: Aspirin 81mg Chewable Tab PO SCH (08:00)
--- NOTE | 2018-12-31 14:01 | Internal Medicine Prog Note ---
Internal Medicine Subjective - Subjective Service Date: 12/31/18 Patient is:: awake, verbal, non-interactive, in wheelchair, confused Per staff patient has:: no adverse event, no episodes of fall, poor appetite Internal Medicine Objective - Physical Exam Vitals and I&O: Vital Signs Temp 97.6 F 12/31/18 06:16 Pulse 60 12/31/18 06:16 Resp 18 12/31/18 06:16 BP 106/57 12/31/18 06:16 Pulse Ox 96 12/31/18 06:16 Intake & Output 12/30/18 12/31/18 12/31/18 18:59 06:59 18:59 Intake Total 700 120 Output Total 1 Balance 700 119 Intake: Oral 700 120 Output: Urine/Stool Mix 1 Other: # Voids 2 1 # Bowel Movements 0 Active Medications: Current Medications Acetaminophen (Tylenol) 650 mg PO Q4HR PRN PRN Reason: Moderate Pain (Scale 4-6) Stop: 02/20/19 06:39 Acetaminophen (Tylenol) 650 mg PO Q6HR PRN PRN Reason: Mild Pain (Scale 1-3) Stop: 02/20/19 15:05 Acetaminophen (Tylenol) 650 mg PO Q6H PRN PRN Reason: TEMP ABOVE 101 Stop: 02/20/19 16:03 Al Hydrox/Mg Hydrox/Simethicone (Maalox) 30 ml PO Q4HR PRN PRN Reason: GI DISTRESS Stop: 02/20/19 06:39 Albuterol Sulfate (Albuterol 2.5mg/3ml Neb Ud) 2.5 mg HHN Q6HRT PRN PRN Reason: Shortness of Breath Stop: 02/20/19 15:05 Amlodipine Besylate (Norvasc) 10 mg PO DAILY [facility] Stop: 02/21/19 08:59 Last Admin: 12/30/18 09:08 Dose: Not Given Aspirin (Aspirin Chewable) 81 mg PO DAILY [facility] Stop: 02/21/19 08:59 Last Admin: 12/31/18 08:00 Dose: 81 mg Bisacodyl (Dulcolax 10 Mg Supp) 10 mg RC DAILY PRN PRN Reason: Constipation Stop: 02/20/19 15:05 Escitalopram Oxalate (Lexapro) 10 mg PO DAILY [facility]; Protocol Stop: 02/20/19 08:59 Last Admin: 12/31/18 07:59 Dose: 10 mg Famotidine (Pepcid) 20 mg PO QAM SIMON Stop: 02/21/19 08:59 Last Admin: 12/31/18 08:00 Dose: 20 mg Guaifenesin (Robitussin) 200 mg PO Q4HR PRN PRN Reason: Cough or Congestion Stop: 02/27/19 12:59 Last Admin: 12/29/18 17:38 Dose: 200 mg Lactobacillus Rhamnosus (Culturelle 15b) 1 each PO DAILY SIMON Stop: 02/21/19 08:59 Last Admin: 12/31/18 07:59 Dose: 1 each Lorazepam (Ativan) 0.5 mg PO Q4HR PRN; Protocol PRN Reason: Anxiety Stop: 01/21/19 06:39 Magnesium Hydroxide (Milk Of Magnesia) 30 ml PO HS PRN PRN Reason: Constipation Zolpidem Tartrate (Ambien) 5 mg PO HS PRN PRN Reason: Insomnia Stop: 02/20/19 06:39 General: demented HEENT: NC/AT, PERRLA, EOMI Neck: Supple, No JVD Lungs: CTAB Cardiovascular: RRR, Normal S1, Normal S2, with murmur Abdomen: soft, non-tender, thin, positive bowel sound Extremities: excoriation, contracture Neurological: no change Internal Medicine Assmt/Plan - Assessment Assessment: ASSESSMENT AND PLAN: Hypertension, urinary tract infection, dementia, low albumin, depression, gastroesophageal reflux disease, history of stroke. cough - Plan Plan: Continue the patient on fall precaution. Continue on current antihypertensive medication. We will make some adjustment, continue p.o. antibiotic. We will refer the patient adequate nutritional support. We will adjust the patient and continue on H2 dee. We will continue to monitor the patient closely. check cxr Nutritional Asmnt/Malnutr-PDOC - Dietary Evaluation Malnutrition Findings (Please click <Entered> for more info): Nutritional Asmnt/Malnutrition Start: 12/22/18 16: 28 Text: Status: Complete Freq: Protocol: Document 12/22/18 16:28 NICKO (Rec: 12/22/18 16:31 NICKO [email or web address]) Nutritional Asmnt/Malnutrition Patient General Information Nutritional Screening Consult Diagnosis Psychosis Pertinent Medical Hx/Surgical Hx No current Reports Subjective Information Consult: New Admission Pt is a 83-year-old female admitted on 12/22 d/t psychosis. Spoke with Nurse Vito, pt ate 50% breakfast and lunch today. Nurse stated MD ordered Ensure Enlive TID, will monitor order update. Nurse states pt has no wounds, skin WNL. Anthropometrics HT: 53 WT: 105 LB (73.18 kg) BMI: 18.60 (Normal) GI/ Skin Integrity GI: Not noted BM: Not Noted Skin: WNL Lee: 14 Diet Order: Pureed, [place] Thick Liquids Estimated Energy Needs: ( Geriatric, CBW) 3253-2030 kcals (25-30 kcals/ kg) 73-88g Pro (1.0-1.2 g/kg) 8493-2810 ml (25-30 ml/kg) Current Diet Order/ Nutrition Support Pureed, [place] Thick Liquids Pertinent Medications Maalox (PRN), MOM (PRN) Pertinent Labs 12/21: Bun 33, Glucose 107, Alb 3.3 Nutritional Hx/Data Height 5 ft 3 in Height (Calculated Centimeters) 160.0 Current Weight (lbs) 105 lb Weight (Calculated Kilograms) 47.6 Weight (Calculated Grams) 69173.2 [place] Body Weight 115 LB (52.27 kg) % [place] Body Weight 91 Body Mass Index (BMI) 18.6 Weight Status Approriate GI Symptoms Last BM Not Noted Skin Integrity/Comment: Skin: WNL Lee: 14 Current %PO Fair (50-74%) Estimated Nutritional Goals BEE in Kcals: Using Current wt Calories/Kcals/Kg 25-30 Kcals Calculated 2380-4857 Protein: Using Current wt Protein g/k.0-1.2 Protein Calculated 73-88 Fluid: ml 2946-8692 ml (25-30 ml/kg) Nutritional Problem 1. Problem Problem No nutrition diagnosis at this time. Etiology N/A Signs/Symptoms: N/A Malnutrition Related to Morbid Obesity Malnutrition related to morbid obesity No Intervention/Recommendation Comments 1. Continue with Pureed, [place] Thick Liquids diet as ordered. Expected Outcomes/Goals Expected Outcomes/Goals 1. PO intake to meet 75% of nutritional needs. 2. Monitor PO intake, wt, nutrition related labs to trend WNL, and skin integrity. 3. F/U as low risk in 7-10 days, 12/29-01/01
--- NOTE | 2018-12-31 21:29 | Progress Notes ---
DATE: 12/31/2018 SUBJECTIVE: Case was discussed with staff of the patient, reviewed records. Covering for Dr. Schwarz. This 83-year-old female who was admitted on 12/22/2018 with a history of depression. She came from [facility]. The patient has been very depressed, has been withdrawn and confused. The patient was unable to answer questions. Continues to appears to be sad and has not been able to make any sense and she does not communicate at all because of her confusion and her depression. The patient was hospitalized before at this facility. The patient continues to be confused, unpredictable, impulsive, easily agitated, irritable, restless, and wants to be left alone. Unable to make safe plan for self-care. She has been compliant with the medication with no side effects, no sedation, no nausea, and no extrapyramidal symptoms. She is on amlodipine, Lexapro 10 mg daily, guaifenesin and we will continue outpatient group therapy, milieu therapy and adjust medication as needed. JOB# [id number]
[2019-01-01] MEDS: Lactobacillus Rhamnosus GG 15 Billion CFU CAP.SPRINK PO SCH (09:24)
[2019-01-01] MEDS: Aspirin 81mg Chewable Tab PO SCH (09:24)
--- NOTE | 2019-01-01 15:38 | Internal Medicine Prog Note ---
Internal Medicine Subjective - Subjective Service Date: 01/01/19 Patient is:: awake, in bed, confused Per staff patient has:: no adverse event, no episodes of fall, poor appetite Internal Medicine Objective - Physical Exam Vitals and I&O: Vital Signs Temp 97.1 F 01/01/19 06:30 Pulse 62 01/01/19 09:23 Resp 18 01/01/19 06:30 BP 138/75 01/01/19 09:23 Pulse Ox 90 01/01/19 06:30 Intake & Output 12/31/18 01/01/19 01/01/19 18:59 06:59 18:59 Intake Total 740 120 Output Total 1 Balance 740 119 Intake: Oral 740 120 Output: Urine/Stool Mix 1 Other: # Voids 2 1 # Bowel Movements 0 Active Medications: Current Medications Acetaminophen (Tylenol) 650 mg PO Q4HR PRN PRN Reason: Moderate Pain (Scale 4-6) Stop: 02/20/19 06:39 Acetaminophen (Tylenol) 650 mg PO Q6HR PRN PRN Reason: Mild Pain (Scale 1-3) Stop: 02/20/19 15:05 Acetaminophen (Tylenol) 650 mg PO Q6H PRN PRN Reason: TEMP ABOVE 101 Stop: 02/20/19 16:03 Al Hydrox/Mg Hydrox/Simethicone (Maalox) 30 ml PO Q4HR PRN PRN Reason: GI DISTRESS Stop: 02/20/19 06:39 Albuterol Sulfate (Albuterol 2.5mg/3ml Neb Ud) 2.5 mg HHN Q6HRT PRN PRN Reason: Shortness of Breath Stop: 02/20/19 15:05 Amlodipine Besylate (Norvasc) 10 mg PO DAILY [facility] Stop: 02/21/19 08:59 Last Admin: 01/01/19 09:23 Dose: 10 mg Aspirin (Aspirin Chewable) 81 mg PO DAILY [facility] Stop: 02/21/19 08:59 Last Admin: 01/01/19 09:24 Dose: 81 mg Bisacodyl (Dulcolax 10 Mg Supp) 10 mg RC DAILY PRN PRN Reason: Constipation Stop: 02/20/19 15:05 Escitalopram Oxalate (Lexapro) 10 mg PO DAILY [facility]; Protocol Stop: 02/20/19 08:59 Last Admin: 01/01/19 09:24 Dose: 10 mg Famotidine (Pepcid) 20 mg PO QAM [facility] Stop: 02/21/19 08:59 Last Admin: 01/01/19 09:24 Dose: 20 mg Guaifenesin (Robitussin) 200 mg PO Q4HR PRN PRN Reason: Cough or Congestion Stop: 02/27/19 12:59 Last Admin: 12/29/18 17:38 Dose: 200 mg Lactobacillus Rhamnosus (Culturelle 15b) 1 each PO DAILY [facility] Stop: 02/21/19 08:59 Last Admin: 01/01/19 09:24 Dose: 1 each Lorazepam (Ativan) 0.5 mg PO Q4HR PRN; Protocol PRN Reason: Anxiety Stop: 01/21/19 06:39 Last Admin: 12/31/18 21:18 Dose: 0.5 mg Magnesium Hydroxide (Milk Of Magnesia) 30 ml PO HS PRN PRN Reason: Constipation Zolpidem Tartrate (Ambien) 5 mg PO HS PRN PRN Reason: Insomnia Stop: 02/20/19 06:39 General: demented HEENT: NC/AT, PERRLA, EOMI Neck: Supple, No JVD Lungs: CTAB Cardiovascular: RRR, Normal S1, Normal S2, with murmur Abdomen: soft, non-tender, thin, positive bowel sound Extremities: excoriation, contracture Neurological: no change Internal Medicine Assmt/Plan - Assessment Assessment: ASSESSMENT AND PLAN: Hypertension, urinary tract infection, dementia, low albumin, depression, gastroesophageal reflux disease, history of stroke. cough - Plan Plan: Continue the patient on fall precaution. Continue on current antihypertensive medication. We will make some adjustment, continue p.o. antibiotic. We will refer the patient adequate nutritional support. We will adjust the patient and continue on H2 dee. We will continue to monitor the patient closely. check cxr Nutritional Asmnt/Malnutr-PDOC - Dietary Evaluation Malnutrition Findings (Please click <Entered> for more info): Nutritional Asmnt/Malnutrition Start: 12/22/18 16: 28 Text: Status: Complete Freq: Protocol: Document 12/22/18 16:28 NICKO (Rec: 12/22/18 16:31 NICKO [email or web address]) Nutritional Asmnt/Malnutrition Patient General Information Nutritional Screening Consult Diagnosis Psychosis Pertinent Medical Hx/Surgical Hx No current Reports Subjective Information Consult: New Admission Pt is a 83-year-old female admitted on 12/22 d/t psychosis. Spoke with Nurse Vito, pt ate 50% breakfast and lunch today. Nurse stated MD ordered Ensure Enlive TID, will monitor order update. Nurse states pt has no wounds, skin WNL. Anthropometrics HT: 53 WT: 105 LB (73.18 kg) BMI: 18.60 (Normal) GI/ Skin Integrity GI: Not noted BM: Not Noted Skin: WNL Lee: 14 Diet Order: Pureed, [place] Thick Liquids Estimated Energy Needs: ( Geriatric, CBW) 4087-1725 kcals (25-30 kcals/ kg) 73-88g Pro (1.0-1.2 g/kg) 5235-4761 ml (25-30 ml/kg) Current Diet Order/ Nutrition Support Pureed, [place] Thick Liquids Pertinent Medications Maalox (PRN), MOM (PRN) Pertinent Labs 12/21: Bun 33, Glucose 107, Alb 3.3 Nutritional Hx/Data Height 5 ft 3 in Height (Calculated Centimeters) 160.0 Current Weight (lbs) 105 lb Weight (Calculated Kilograms) 47.6 Weight (Calculated Grams) 10442.2 [place] Body Weight 115 LB (52.27 kg) % [place] Body Weight 91 Body Mass Index (BMI) 18.6 Weight Status Approriate GI Symptoms Last BM Not Noted Skin Integrity/Comment: Skin: WNL Lee: 14 Current %PO Fair (50-74%) Estimated Nutritional Goals BEE in Kcals: Using Current wt Calories/Kcals/Kg 25-30 Kcals Calculated 1921-0691 Protein: Using Current wt Protein g/k.0-1.2 Protein Calculated 73-88 Fluid: ml 3313-5739 ml (25-30 ml/kg) Nutritional Problem 1. Problem Problem No nutrition diagnosis at this time. Etiology N/A Signs/Symptoms: N/A Malnutrition Related to Morbid Obesity Malnutrition related to morbid obesity No Intervention/Recommendation Comments 1. Continue with Pureed, [place] Thick Liquids diet as ordered. Expected Outcomes/Goals Expected Outcomes/Goals 1. PO intake to meet 75% of nutritional needs. 2. Monitor PO intake, wt, nutrition related labs to trend WNL, and skin integrity. 3. F/U as low risk in 7-10 days, 12/29-01/01
--- NOTE | 2019-01-01 20:31 | Progress Notes ---
DATE: 01/01/2019 Case was discussed with staff of the patient, reviewed records. The patient continues to isolate herself. Continues to be depressed. Continues to be unable to make sense to carry on a conversation, confused, unpredictable, impulsive, and easily agitated. She is compliant with the medication with no side effects, no sedation, no nausea. We will continue outpatient group therapy, milieu therapy, adjust the medication as needed. JOB# [id number]
[2019-01-02] MEDS: Lactobacillus Rhamnosus GG 15 Billion CFU CAP.SPRINK PO SCH (09:20)
[2019-01-02] MEDS: Aspirin 81mg Chewable Tab PO SCH (09:20)
--- NOTE | 2019-01-02 09:23 | Diagnostic Imaging Report ---
Portable chest x-ray HISTORY: Cough The heart size is normal. Atherosclerotic calcification seen in the aorta. Cardiac pacemaker lead wires project over the right atrium and right ventricle. Catheter tubing projects over the right neck, chest, and upper abdomen. IMPRESSION: 1. No acute abnormalities 2. No change from a prior study of July 07, 2018.
--- NOTE | 2019-01-02 12:34 | Internal Medicine Prog Note ---
Internal Medicine Subjective - Subjective Patient seen and examined:: with staff, chart reviewed Patient is:: awake, in bed, confused Per staff patient has:: no adverse event, no episodes of fall, poor appetite Internal Medicine Objective - Physical Exam Vitals and I&O: Vital Signs Temp 97.4 F 01/02/19 06:22 Pulse 63 01/02/19 09:20 Resp 18 01/02/19 06:22 BP 121/61 01/02/19 09:20 Pulse Ox 93 01/02/19 06:22 Intake & Output 01/01/19 01/02/19 01/02/19 18:59 06:59 18:59 Intake Total 800 120 Balance 800 120 Intake: Oral 800 120 Other: # Voids 4 3 # Bowel Movements 1 0 Active Medications: Current Medications Acetaminophen (Tylenol) 650 mg PO Q4HR PRN PRN Reason: Moderate Pain (Scale 4-6) Stop: 02/20/19 06:39 Acetaminophen (Tylenol) 650 mg PO Q6HR PRN PRN Reason: Mild Pain (Scale 1-3) Stop: 02/20/19 15:05 Acetaminophen (Tylenol) 650 mg PO Q6H PRN PRN Reason: TEMP ABOVE 101 Stop: 02/20/19 16:03 Al Hydrox/Mg Hydrox/Simethicone (Maalox) 30 ml PO Q4HR PRN PRN Reason: GI DISTRESS Stop: 02/20/19 06:39 Albuterol Sulfate (Albuterol 2.5mg/3ml Neb Ud) 2.5 mg HHN Q6HRT PRN PRN Reason: Shortness of Breath Stop: 02/20/19 15:05 Amlodipine Besylate (Norvasc) 10 mg PO DAILY [facility] Stop: 02/21/19 08:59 Last Admin: 01/02/19 09:20 Dose: 10 mg Aspirin (Aspirin Chewable) 81 mg PO DAILY [facility] Stop: 02/21/19 08:59 Last Admin: 01/02/19 09:20 Dose: 81 mg Bisacodyl (Dulcolax 10 Mg Supp) 10 mg RC DAILY PRN PRN Reason: Constipation Stop: 02/20/19 15:05 Escitalopram Oxalate (Lexapro) 10 mg PO DAILY [facility]; Protocol Stop: 02/20/19 08:59 Last Admin: 10/28/19 09:20 Dose: 10 mg Famotidine (Pepcid) 20 mg PO QAM [facility] Stop: 02/21/19 08:59 Last Admin: 01/02/19 09:20 Dose: 20 mg Guaifenesin (Robitussin) 200 mg PO Q4HR PRN PRN Reason: Cough or Congestion Stop: 02/27/19 12:59 Last Admin: 12/29/18 17:38 Dose: 200 mg Lactobacillus Rhamnosus (Culturelle 15b) 1 each PO DAILY [facility] Stop: 02/21/19 08:59 Last Admin: 01/02/19 09:20 Dose: 1 each Lorazepam (Ativan) 0.5 mg PO Q4HR PRN; Protocol PRN Reason: Anxiety Stop: 01/21/19 06:39 Last Admin: 12/31/18 21:18 Dose: 0.5 mg Magnesium Hydroxide (Milk Of Magnesia) 30 ml PO HS PRN PRN Reason: Constipation Zolpidem Tartrate (Ambien) 5 mg PO HS PRN PRN Reason: Insomnia Stop: 02/20/19 06:39 General: demented HEENT: NC/AT, PERRLA, EOMI Neck: Supple, No JVD Lungs: CTAB Cardiovascular: RRR, Normal S1, Normal S2, with murmur Abdomen: soft, non-tender, thin, positive bowel sound Extremities: excoriation, contracture Neurological: no change Internal Medicine Assmt/Plan - Assessment Assessment: ASSESSMENT AND PLAN: Hypertension, urinary tract infection, dementia, low albumin, depression, gastroesophageal reflux disease, history of stroke. cough - Plan Plan: PLAN: Continue the patient on fall precaution. Continue on current antihypertensive medication. We will make some adjustment, continue p.o. antibiotic. We will refer the patient adequate nutritional support. We will adjust the patient and continue on H2 dee. We will continue to monitor the patient closely. check cxr Nutritional Asmnt/Malnutr-PDOC - Dietary Evaluation Malnutrition Findings (Please click <Entered> for more info): Nutritional Asmnt/Malnutrition Start: 12/22/18 16: 28 Text: Status: Complete Freq: Protocol: Document 12/22/18 16:28 NICKO (Rec: 12/22/18 16:31 NICKO [email or web address]) Nutritional Asmnt/Malnutrition Patient General Information Nutritional Screening Consult Diagnosis Psychosis Pertinent Medical Hx/Surgical Hx No current Reports Subjective Information Consult: New Admission Pt is a 83-year-old female admitted on 12/22 d/t psychosis. Spoke with Nurse Vito, pt ate 50% breakfast and lunch today. Nurse stated MD ordered Ensure Enlive TID, will monitor order update. Nurse states pt has no wounds, skin WNL. Anthropometrics HT: 53 WT: 105 LB (73.18 kg) BMI: 18.60 (Normal) GI/ Skin Integrity GI: Not noted BM: Not Noted Skin: WNL Lee: 14 Diet Order: Pureed, [place] Thick Liquids Estimated Energy Needs: ( Geriatric, CBW) 7277-1339 kcals (25-30 kcals/ kg) 73-88g Pro (1.0-1.2 g/kg) 9555-0613 ml (25-30 ml/kg) Current Diet Order/ Nutrition Support Pureed, [place] Thick Liquids Pertinent Medications Maalox (PRN), MOM (PRN) Pertinent Labs 12/21: Bun 33, Glucose 107, Alb 3.3 Nutritional Hx/Data Height 1.6 m Height (Calculated Centimeters) 160.0 Current Weight (lbs) 47.627 kg Weight (Calculated Kilograms) 47.6 Weight (Calculated Grams) 42931.2 [place] Body Weight 115 LB (52.27 kg) % [place] Body Weight 91 Body Mass Index (BMI) 18.6 Weight Status Approriate GI Symptoms Last BM Not Noted Skin Integrity/Comment: Skin: WNL Lee: 14 Current %PO Fair (50-74%) Estimated Nutritional Goals BEE in Kcals: Using Current wt Calories/Kcals/Kg 25-30 Kcals Calculated 5961-6715 Protein: Using Current wt Protein g/k.0-1.2 Protein Calculated 73-88 Fluid: ml 2012-8528 ml (25-30 ml/kg) Nutritional Problem 1. Problem Problem No nutrition diagnosis at this time. Etiology N/A Signs/Symptoms: N/A Malnutrition Related to Morbid Obesity Malnutrition related to morbid obesity No Intervention/Recommendation Comments 1. Continue with Pureed, [place] Thick Liquids diet as ordered. Expected Outcomes/Goals Expected Outcomes/Goals 1. PO intake to meet 75% of nutritional needs. 2. Monitor PO intake, wt, nutrition related labs to trend WNL, and skin integrity. 3. F/U as low risk in 7-10 days, 12/29-01/01
--- NOTE | 2019-01-02 16:35 | Progress Notes ---
DATE: 01/02/2019 SUBJECTIVE: Chart was reviewed and the patient interviewed, also discussed the patient's condition with the staff and reviewed records and labs. The patient is withdrawn and she is still confused and nonverbal. The patient has difficulty expressing herself and making her demands note. She is still rambling in [place] language. Also, the patient is still depressed and guarded. Also confused and needs lots of redirections. ASSESSMENT: The patient is still depressed and confused. TREATMENT PLAN: Continue to monitor behavior and condition closely. Also continue Lexapro at 10 mg every day. Also continue working on behavioral modification and her irritability. JOB# [id number]
[2019-01-03] MEDS: Aspirin 81mg Chewable Tab PO SCH (09:03)
[2019-01-03] MEDS: Lactobacillus Rhamnosus GG 15 Billion CFU CAP.SPRINK PO SCH (09:04)
--- NOTE | 2019-01-03 13:04 | Internal Medicine Prog Note ---
Internal Medicine Subjective - Subjective Patient seen and examined:: with staff, chart reviewed Patient is:: awake, in bed, confused Per staff patient has:: no adverse event, no episodes of fall, poor appetite Internal Medicine Objective - Physical Exam Vitals and I&O: Vital Signs Temp 97.3 F 01/03/19 06:15 Pulse 61 01/03/19 09:04 Resp 18 01/03/19 06:15 BP 118/61 01/03/19 09:04 Pulse Ox 95 01/03/19 06:15 Intake & Output 01/02/19 01/03/19 01/03/19 18:59 06:59 18:59 Intake Total 600 180 Output Total 1 Balance 600 179 Intake: Oral 600 180 Output: Urine/Stool Mix 1 Other: # Voids 3 1 # Bowel Movements 0 0 Active Medications: Current Medications Acetaminophen (Tylenol) 650 mg PO Q4HR PRN PRN Reason: Moderate Pain (Scale 4-6) Stop: 02/20/19 06:39 Acetaminophen (Tylenol) 650 mg PO Q6HR PRN PRN Reason: Mild Pain (Scale 1-3) Stop: 02/20/19 15:05 Acetaminophen (Tylenol) 650 mg PO Q6H PRN PRN Reason: TEMP ABOVE 101 Stop: 02/20/19 16:03 Al Hydrox/Mg Hydrox/Simethicone (Maalox) 30 ml PO Q4HR PRN PRN Reason: GI DISTRESS Stop: 02/20/19 06:39 Albuterol Sulfate (Albuterol 2.5mg/3ml Neb Ud) 2.5 mg HHN Q6HRT PRN PRN Reason: Shortness of Breath Stop: 02/20/19 15:05 Amlodipine Besylate (Norvasc) 10 mg PO DAILY SIMON Stop: 02/21/19 08:59 Last Admin: 01/03/19 09:04 Dose: 10 mg Aspirin (Aspirin Chewable) 81 mg PO DAILY SIMON Stop: 02/21/19 08:59 Last Admin: 01/03/19 09:03 Dose: 81 mg Bisacodyl (Dulcolax 10 Mg Supp) 10 mg RC DAILY PRN PRN Reason: Constipation Stop: 02/20/19 15:05 Escitalopram Oxalate (Lexapro) 10 mg PO DAILY SIMON; Protocol Stop: 02/20/19 08:59 Last Admin: 01/03/19 09:03 Dose: 10 mg Famotidine (Pepcid) 20 mg PO QAM SIMON Stop: 02/21/19 08:59 Last Admin: 01/03/19 09:04 Dose: 20 mg Guaifenesin (Robitussin) 200 mg PO Q4HR PRN PRN Reason: Cough or Congestion Stop: 02/27/19 12:59 Last Admin: 12/29/18 17:38 Dose: 200 mg Lactobacillus Rhamnosus (Culturelle 15b) 1 each PO DAILY SIMON Stop: 02/21/19 08:59 Last Admin: 01/03/19 09:04 Dose: 1 each Lorazepam (Ativan) 0.5 mg PO Q4HR PRN; Protocol PRN Reason: Anxiety Stop: 01/21/19 06:39 Last Admin: 12/31/18 21:18 Dose: 0.5 mg Magnesium Hydroxide (Milk Of Magnesia) 30 ml PO HS PRN PRN Reason: Constipation Zolpidem Tartrate (Ambien) 5 mg PO HS PRN PRN Reason: Insomnia Stop: 02/20/19 06:39 General: demented HEENT: NC/AT, PERRLA, EOMI Neck: Supple, No JVD Lungs: CTAB Cardiovascular: RRR, Normal S1, Normal S2, with murmur Abdomen: soft, non-tender, thin, positive bowel sound Extremities: excoriation, contracture Neurological: no change Internal Medicine Assmt/Plan - Assessment Assessment: ASSESSMENT AND PLAN: Hypertension, urinary tract infection, dementia, low albumin, depression, gastroesophageal reflux disease, history of stroke. cough - Plan Plan: PLAN: Continue the patient on fall precaution. Continue on current antihypertensive medication. We will make some adjustment, continue p.o. antibiotic. We will refer the patient adequate nutritional support. We will adjust the patient and continue on H2 dee. We will continue to monitor the patient closely. check cxr Nutritional Asmnt/Malnutr-PDOC - Dietary Evaluation Malnutrition Findings (Please click <Entered> for more info): Nutritional Asmnt/Malnutrition Start: 12/22/18 16: 28 Text: Status: Complete Freq: Protocol: Document 12/22/18 16:28 NICKO (Rec: 12/22/18 16:31 [email or web address] [email or web address]) Nutritional Asmnt/Malnutrition Patient General Information Nutritional Screening Consult Diagnosis Psychosis Pertinent Medical Hx/Surgical Hx No current Reports Subjective Information Consult: New Admission Pt is a 83-year-old female admitted on 12/22 d/t psychosis. Spoke with Nurse Vito, pt ate 50% breakfast and lunch today. Nurse stated MD ordered Ensure Enlive TID, will monitor order update. Nurse states pt has no wounds, skin WNL. Anthropometrics HT: 53 WT: 105 LB (73.18 kg) BMI: 18.60 (Normal) GI/ Skin Integrity GI: Not noted BM: Not Noted Skin: WNL Lee: 14 Diet Order: Pureed, [place] Thick Liquids Estimated Energy Needs: ( Geriatric, CBW) 3384-1940 kcals (25-30 kcals/ kg) 73-88g Pro (1.0-1.2 g/kg) 9149-7374 ml (25-30 ml/kg) Current Diet Order/ Nutrition Support Pureed, [place] Thick Liquids Pertinent Medications Maalox (PRN), MOM (PRN) Pertinent Labs 12/21: Bun 33, Glucose 107, Alb 3.3 Nutritional Hx/Data Height 1.6 m Height (Calculated Centimeters) 160.0 Current Weight (lbs) 47.627 kg Weight (Calculated Kilograms) 47.6 Weight (Calculated Grams) 41674.2 [place] Body Weight 115 LB (52.27 kg) % [place] Body Weight 91 Body Mass Index (BMI) 18.6 Weight Status Approriate GI Symptoms Last BM Not Noted Skin Integrity/Comment: Skin: WNL Lee: 14 Current %PO Fair (50-74%) Estimated Nutritional Goals BEE in Kcals: Using Current wt Calories/Kcals/Kg 25-30 Kcals Calculated 1301-1833 Protein: Using Current wt Protein g/k.0-1.2 Protein Calculated 73-88 Fluid: ml 1879-2662 ml (25-30 ml/kg) Nutritional Problem 1. Problem Problem No nutrition diagnosis at this time. Etiology N/A Signs/Symptoms: N/A Malnutrition Related to Morbid Obesity Malnutrition related to morbid obesity No Intervention/Recommendation Comments 1. Continue with Pureed, [place] Thick Liquids diet as ordered. Expected Outcomes/Goals Expected Outcomes/Goals 1. PO intake to meet 75% of nutritional needs. 2. Monitor PO intake, wt, nutrition related labs to trend WNL, and skin integrity. 3. F/U as low risk in 7-10 days, 12/29-01/01
--- NOTE | 2019-01-03 17:32 | Progress Notes ---
DATE: SUBJECTIVE: Chart was reviewed and the patient interviewed. Also discussed the patient's condition with the staff and reviewed records and labs. The patient is making some strange gestures with her left hand pointing out to the ceiling and then back. She also seems to be confused and restless and she is in irritable mood, but at the same time, depressed and unable to express herself or her feelings appropriately. She also is still withdrawn and does not want to leave her room. She also is forgetful and still needs lots of redirections and also lots of help with her ADLs. Otherwise, the patient is compliant with taking her medications with no side effects of medications. ASSESSMENT: The patient is still confused and depressed. TREATMENT PLAN: Continue monitoring her behavior and her condition closely. Also, continue to work on behavior modification and her ineffective coping. JOB# [id number]
[2019-01-04] MEDS: Lactobacillus Rhamnosus GG 15 Billion CFU CAP.SPRINK PO SCH (08:41)
[2019-01-04] MEDS: Aspirin 81mg Chewable Tab PO SCH (08:42)
--- NOTE | 2019-01-04 12:27 | Internal Medicine Prog Note ---
Internal Medicine Subjective - Subjective Patient seen and examined:: with staff, chart reviewed Patient is:: awake, in bed, confused Per staff patient has:: no adverse event, no episodes of fall, poor appetite Internal Medicine Objective - Physical Exam Vitals and I&O: Vital Signs Temp 97.9 F 01/04/19 06:22 Pulse 81 01/04/19 08:41 Resp 18 01/04/19 08:00 BP 144/68 01/04/19 08:41 Pulse Ox 93 01/04/19 06:22 Intake & Output 01/03/19 01/04/19 01/04/19 18:59 06:59 18:59 Intake Total 240 120 Balance 240 120 Intake: Oral 240 120 Other: # Voids 3 2 # Bowel Movements 0 0 Active Medications: Current Medications Acetaminophen (Tylenol) 650 mg PO Q4HR PRN PRN Reason: Moderate Pain (Scale 4-6) Stop: 02/20/19 06:39 Acetaminophen (Tylenol) 650 mg PO Q6HR PRN PRN Reason: Mild Pain (Scale 1-3) Stop: 02/20/19 15:05 Acetaminophen (Tylenol) 650 mg PO Q6H PRN PRN Reason: TEMP ABOVE 101 Stop: 02/20/19 16:03 Al Hydrox/Mg Hydrox/Simethicone (Maalox) 30 ml PO Q4HR PRN PRN Reason: GI DISTRESS Stop: 02/20/19 06:39 Albuterol Sulfate (Albuterol 2.5mg/3ml Neb Ud) 2.5 mg HHN Q6HRT PRN PRN Reason: Shortness of Breath Stop: 02/20/19 15:05 Amlodipine Besylate (Norvasc) 10 mg PO DAILY SIMON Stop: 02/21/19 08:59 Last Admin: 01/04/19 08:41 Dose: 10 mg Aspirin (Aspirin Chewable) 81 mg PO DAILY SIMON Stop: 02/21/19 08:59 Last Admin: 01/04/19 08:42 Dose: 81 mg Bisacodyl (Dulcolax 10 Mg Supp) 10 mg RC DAILY PRN PRN Reason: Constipation Stop: 02/20/19 15:05 Escitalopram Oxalate (Lexapro) 10 mg PO DAILY SIMON; Protocol Stop: 02/20/19 08:59 Last Admin: 01/04/19 08:41 Dose: 10 mg Famotidine (Pepcid) 20 mg PO QAM SIMON Stop: 02/21/19 08:59 Last Admin: 01/04/19 08:42 Dose: 20 mg Guaifenesin (Robitussin) 200 mg PO Q4HR PRN PRN Reason: Cough or Congestion Stop: 02/27/19 12:59 Last Admin: 12/29/18 17:38 Dose: 200 mg Lactobacillus Rhamnosus (Culturelle 15b) 1 each PO DAILY SIMON Stop: 02/21/19 08:59 Last Admin: 01/04/19 08:41 Dose: 1 each Lorazepam (Ativan) 0.5 mg PO Q4HR PRN; Protocol PRN Reason: Anxiety Stop: 01/21/19 06:39 Last Admin: 12/31/18 21:18 Dose: 0.5 mg Magnesium Hydroxide (Milk Of Magnesia) 30 ml PO HS PRN PRN Reason: Constipation Zolpidem Tartrate (Ambien) 5 mg PO HS PRN PRN Reason: Insomnia Stop: 02/20/19 06:39 General: demented HEENT: NC/AT, PERRLA, EOMI Neck: Supple, No JVD Lungs: CTAB Cardiovascular: RRR, Normal S1, Normal S2, with murmur Abdomen: soft, non-tender, thin, positive bowel sound Extremities: excoriation, contracture Neurological: no change Internal Medicine Assmt/Plan - Assessment Assessment: ASSESSMENT AND PLAN: Hypertension, urinary tract infection, dementia, low albumin, depression, gastroesophageal reflux disease, history of stroke. cough - Plan Plan: PLAN: Continue the patient on fall precaution. Continue on current antihypertensive medication. We will make some adjustment, continue p.o. antibiotic. We will refer the patient adequate nutritional support. We will adjust the patient and continue on H2 dee. We will continue to monitor the patient closely. check cxr Nutritional Asmnt/Malnutr-PDOC - Dietary Evaluation Malnutrition Findings (Please click <Entered> for more info): Nutritional Asmnt/Malnutrition Start: 12/22/18 16: 28 Text: Status: Complete Freq: Protocol: Document 12/22/18 16:28 NICKO (Rec: 12/22/18 16:31 NICKO [email or web address]) Nutritional Asmnt/Malnutrition Patient General Information Nutritional Screening Consult Diagnosis Psychosis Pertinent Medical Hx/Surgical Hx No current Reports Subjective Information Consult: New Admission Pt is a 83-year-old female admitted on 12/22 d/t psychosis. Spoke with Nurse Vito, pt ate 50% breakfast and lunch today. Nurse stated MD ordered Ensure Enlive TID, will monitor order update. Nurse states pt has no wounds, skin WNL. Anthropometrics HT: 53 WT: 105 LB (73.18 kg) BMI: 18.60 (Normal) GI/ Skin Integrity GI: Not noted BM: Not Noted Skin: WNL Lee: 14 Diet Order: Pureed, [place] Thick Liquids Estimated Energy Needs: ( Geriatric, CBW) 5384-9423 kcals (25-30 kcals/ kg) 73-88g Pro (1.0-1.2 g/kg) 5799-7043 ml (25-30 ml/kg) Current Diet Order/ Nutrition Support Pureed, [place] Thick Liquids Pertinent Medications Maalox (PRN), MOM (PRN) Pertinent Labs 12/21: Bun 33, Glucose 107, Alb 3.3 Nutritional Hx/Data Height 1.6 m Height (Calculated Centimeters) 160.0 Current Weight (lbs) 47.627 kg Weight (Calculated Kilograms) 47.6 Weight (Calculated Grams) 46905.2 [place] Body Weight 115 LB (52.27 kg) % [place] Body Weight 91 Body Mass Index (BMI) 18.6 Weight Status Approriate GI Symptoms Last BM Not Noted Skin Integrity/Comment: Skin: WNL Lee: 14 Current %PO Fair (50-74%) Estimated Nutritional Goals BEE in Kcals: Using Current wt Calories/Kcals/Kg 25-30 Kcals Calculated 1847-2678 Protein: Using Current wt Protein g/k.0-1.2 Protein Calculated 73-88 Fluid: ml 6104-1770 ml (25-30 ml/kg) Nutritional Problem 1. Problem Problem No nutrition diagnosis at this time. Etiology N/A Signs/Symptoms: N/A Malnutrition Related to Morbid Obesity Malnutrition related to morbid obesity No Intervention/Recommendation Comments 1. Continue with Pureed, [place] Thick Liquids diet as ordered. Expected Outcomes/Goals Expected Outcomes/Goals 1. PO intake to meet 75% of nutritional needs. 2. Monitor PO intake, wt, nutrition related labs to trend WNL, and skin integrity. 3. F/U as low risk in 7-10 days, 12/29-01/01
--- NOTE | 2019-01-05 02:00 | Progress Notes ---
DATE: 01/04/2019 SUBJECTIVE: Chart reviewed and patient interviewed. Also discussed the patient's condition with the staff and reviewed records and labs. The patient is still confused and anxious. The patient also is still making gestures with her hand that is difficult to understand. She also has difficulty communication because of language barrier. On the other hand, the patient continues to comply with taking her medications. She also seems to be in a depressed mood. ASSESSMENT: The patient is still depressed and confused. TREATMENT PLAN: Continue monitoring behavior and condition closely. Also, continue adjusting psychotropic medications and work on behavioral modification. JOB# [id number]
== END 2019-01-04 13:25 | DRG 885 ==
LOC: GERO 12-22 06:15
PROVIDERS: ADMIT Psychiatry & Neurology Psychiatry; ATTEND Psychiatry & Neurology Psychiatry
DX: F32.2 Major depressive disorder, single episode, severe without psychotic features (principal); N39.0 Urinary tract infection, site not specified; F03.90 Unspecified dementia, unspecified severity, without behavioral disturbance, psychotic disturbance, mood disturbance, and anxiety; K21.9 Gastro-esophageal reflux disease without esophagitis; I10 Essential (primary) hypertension; Z86.73 Personal history of transient ischemic attack (TIA), and cerebral infarction without residual deficits; Z87.440 Personal history of urinary (tract) infections
CPT/HCPCS: 71045-TC; 83036-90; Z7610